=== PATIENT | female | born 1995 | race Caucasian/White ===

== ENCOUNTER 2016-08-17 16:18 | Outpatient (CLI) | payer BC, MEDICAID | END 2016-08-17 18:25 | disposition home or self-care (01) | LOC: MW.OBCHECK 16:18 → MW.OB 16:20 → MW.OBCHECK 18:25 | PROVIDERS: ATTEND Obstetrics & Gynecology | DX: O47.02 False labor before 37 completed weeks of gestation, second trimester (principal); Z3A.28 28 weeks gestation of pregnancy | CPT/HCPCS: 59025; 81001; 84112 ==

== ENCOUNTER 2016-08-25 13:39 | Outpatient (CLI) | payer BC, MEDICAID | END 2016-08-25 15:10 | disposition home or self-care (01) | LOC: MW.OBCHECK 13:39 | PROVIDERS: ATTEND Obstetrics & Gynecology | DX: O47.03 False labor before 37 completed weeks of gestation, third trimester (principal) | CPT/HCPCS: 59025; 84112 ==

== ENCOUNTER 2016-08-25 19:03 | Outpatient (CLI) | payer BC, MEDICAID | END 2016-08-25 21:58 | disposition home or self-care (01) | LOC: MW.OBCHECK 19:03 → MW.OB 19:04 → MW.OBCHECK 21:58 | PROVIDERS: ATTEND Obstetrics & Gynecology | DX: Z34.93 Encounter for supervision of normal pregnancy, unspecified, third trimester (principal) | CPT/HCPCS: 59025 ==

== ENCOUNTER 2016-09-01 16:53 | Inpatient (IN) | payer BC, MEDICAID ==
[2016-09-01] MEDS ORDERED: Terbutaline 1 MG/ML SDV SUBCUT PRN (17:31)
[2016-09-01] MEDS ORDERED: Misoprostol 200 MCG Tab PO PRN (17:35)
[2016-09-01] MEDS ORDERED: Carboprost Tromethamine 250 MCG/1 ML Amp IM PRN (17:35)
[2016-09-01] MEDS ORDERED: Butorphanol 1 MG/ML SDV IVPUSH PRN (17:35)
[2016-09-01] MEDS ORDERED: Nalbuphine 10 MG/1 ML Vial IVPUSH PRN (17:35)
[2016-09-01] MEDS ORDERED: Sodium Chloride 0.9% 10 ML Syringe FLUSH PRN (17:35)
[2016-09-01] MEDS ORDERED: Sodium Chloride 0.9% 2.5 ML Syringe FLUSH PRN (17:35)
[2016-09-01] MEDS ORDERED: Methylergonovine 0.2 MG/1 ML Amp IM PRN (17:35)
[2016-09-01] MEDS ORDERED: Water For Irrigation,Sterile 1,000 ML Container IRR PRN (17:35)
[2016-09-01] MEDS ORDERED: Lidocaine 1% 50 ML MDV INJECT PRN (17:35)
[2016-09-01] MEDS ORDERED: Misoprostol 25 MCG (1/4 of 100 MCG) Tab VAG SCH (18:00)
[2016-09-01] MEDS: Labetalol 100 MG Tab PO SCH (21:04)
[2016-09-02] MEDS ORDERED: Misoprostol 25 MCG (1/4 of 100 MCG) Tab VAG PRN
[2016-09-02] MEDS ORDERED: Oxytocin/Lactated Ringers 30 UNIT/500 ML BAG ONE (02:27)
[2016-09-02] MEDS: Lactated Ringers 1,000 ML IV SCH ×4 (02:32→12:06)
[2016-09-02] MEDS ORDERED: Oxytocin/Lactated Ringers 30 UNIT/500 ML BAG IV SCH ×2 (03:15→06:00)
[2016-09-02] MEDS ORDERED: Oxytocin/Lactated Ringers 30 UNIT/500 ML BAG IV ONE (06:00)
[2016-09-02] MEDS: Labetalol 100 MG Tab PO SCH (09:23)
[2016-09-02] MEDS ORDERED: Ropivacaine HCl/PF 100 ML ONE (11:01)
[2016-09-02] MEDS ORDERED: fentaNYL 100 MCG/2 ML SDV ONE (11:01)
--- NOTE | 2016-09-02 11:35 | PCM.PREANE ---
Preanesthetic Assessment - Anesthesia/Transfusion/Family Hx Anesthesia History: No Prior Anesthesia Family History of Anesthesia Reaction: No Transfusion History: No Prior Transfusion(s) - Review of Systems General: No Symptoms Pulmonary: No Symptoms Cardiovascular: No Symptoms Gastrointestinal: Nausea Neurological: No Symptoms Other: Reports: Anxiety - Physical Assessment NPO Status Date: 09/02/16 NPO Status Time: 11:34 Pulse: 77 Blood Pressure: 118/76 Vital Signs: Last Vital Signs Temp Pulse 77 09/02/16 09:23 Resp BP 118/76 09/02/16 09:23 Pulse Ox Height: 5 ft Weight: 173 lb ASA Class: 2 Mental Status: Alert & Oriented x3 Airway Class: Mallampati = 2 ROM/Head Extension: Full Lungs: Clear to auscultation, Normal respiratory effort Cardiovascular: Regular Rate, Regular Rhythm - Lab Values: Laboratory Last Values WBC 7.58 K/uL (4.0-11.0) 09/01/16 17:55 RBC 3.75 M/uL (4.30-5.90) L 09/01/16 17:55 Hgb 10.8 g/dL (12.0-16.0) L 09/01/16 17:55 Hct 31.8 % (36.0-46.0) L 09/01/16 17:55 MCV 84.8 fL (80.0-98.0) 09/01/16 17:55 MCH 28.8 pg (27.0-32.0) 09/01/16 17:55 MCHC 34.0 g/dL (31.0-37.0) 09/01/16 17:55 RDW Std Deviation 39.8 fl (28.0-62.0) 09/01/16 17:55 RDW Coeff of Sd 13 % (11.0-15.0) 09/01/16 17:55 Plt Count 195 K/uL (150-400) 09/01/16 17:55 MPV 9.70 fL (7.40-12.00) 09/01/16 17:55 Nucleated RBC % 0.0 /100WBC 09/01/16 17:55 Nucleated RBCs # 0 K/uL 09/01/16 17:55 Blood Type O POSITIVE 09/01/16 17:55 Antibody Screen NEGATIVE 09/01/16 17:55 - Allergies Allergies/Adverse Reactions: Allergies Allergy/AdvReac Type Severity Reaction Status Date / Time ketorolac [From Toradol] Allergy Rash Verified 08/25/16 20:21 - Blood Blood Available: No Product(s) Available: None - Anesthesia Plan Free Text/Narrative:: Labor Epidural for 10/10 pain with contractions Pre-Op Medication Ordered: None - Acknowledgements Anesthesia Type Planned: Epidural Pt an Appropriate Candidate for the Planned Anesthesia: Yes Alternatives and Risks of Anesthesia Discussed w Pt/Guardian: Yes Pt/Guardian Understands and Agrees with Anesthesia Plan: Yes PreAnesthesia Questionnaire Cardiovascular History: Reports: Hypertension 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: Psychiatric History: Reports: Anxiety, Depression, Emotional problems - SUBSTANCE USE Tobacco Use Within Last Twelve Months: No - HOME MEDS Home Medications: Home Meds Labetalol HCl [Labetalol] 100 mg PO BID 08/25/16 [History] Vit W-Ca,Fe,FA(<1 mg) [ Vitamins] 1 tab PO DAILY 08/25/16 [ History] - CURRENT (IN HOUSE) MEDS Current Meds: Current Medications Butorphanol Tartrate (Stadol) 1 mg IVPUSH Q1H PRN PRN Reason: Pain Carboprost Tromethamine (Hemabate Ds) 250 mcg IM ASDIRECTED PRN PRN Reason: Post Hemorrhage Lactated Ringer's (Ringers, Lactated) 1,000 mls @ 150 mls/hr IV ASDIRECTED DANNI Last Admin: 09/02/16 09:24 Dose: 150 mls/hr Oxytocin/Lactated Ringer's (Pitocin In Lr 30 Units/500 Ml) 30 unit in 500 mls @ 2 mls/hr IV TITRATE DANNI; 2 MUNITS/MIN PRN Reason: Protocol Last Titration: 09/02/16 09:36 Dose: 18 munits/min, 18 mls/hr Labetalol HCl (Normodyne) 100 mg PO BID DANNI Last Admin: 09/02/16 09:23 Dose: 100 mg Lidocaine HCl (Xylocaine 1%) 50 ml INJECT .ONCE PRN PRN Reason: Laceration repair Methylergonovine Maleate (Methergine) 0.2 mg IM ASDIRECTED PRN PRN Reason: Post Hemorrhage Misoprostol (Cytotec) 25 mcg VAG .ONCE DANNI Last Admin: 09/01/16 18:11 Dose: 25 mcg Misoprostol (Cytotec) 25 mcg VAG Q6H PRN PRN Reason: Cervical Ripening Stop: 09/03/16 18:01 Misoprostol (Cytotec) 200 mcg PO .ONCE PRN PRN Reason: Post Hemorrhage Sodium Chloride (Saline Flush) 10 ml FLUSH ASDIRECTED PRN PRN Reason: Keep Vein Open Sodium Chloride (Saline Flush) 2.5 ml FLUSH ASDIRECTED PRN PRN Reason: Keep Vein Open Sterile Water (Sterile Water For Irrigation) 1,000 ml IRR ASDIRECTED PRN PRN Reason: delivery Terbutaline Sulfate (Brethine) 0.25 mg SUBCUT ASDIRECTED PRN PRN Reason: Tacysystole Discontinued Medications Fentanyl (Sublimaze) Confirm Administered Dose 100 mcg .ROUTE .STK-MED ONE Stop: 09/02/16 11:02 Oxytocin/Lactated Ringer's (Pitocin In Lr 30 Units/500 Ml) 30 unit in 500 mls @ 2 mls/hr IV TITRATE DANNI; 2 MUNITS/MIN PRN Reason: Protocol Oxytocin/Lactated Ringer's (Pitocin In Lr 30 Units/500 Ml) 30 unit in 500 mls @ 999 mls/hr IV ONETIME ONE PRN Reason: 999 MUNITS/MIN Stop: 09/02/16 06:30 Oxytocin/Lactated Ringer's (Pitocin In Lr 30 Units/500 Ml) Confirm Administered Dose 30 unit in 500 mls @ as directed .ROUTE .STK-MED ONE Stop: 09/02/16 02:28 Ropivacaine (Naropin 0.2%) Confirm Administered Dose 100 mls @ as directed .ROUTE .STK-MED ONE Stop: 09/02/16 11:02 Nalbuphine HCl (Nubain) 10 mg IVPUSH Q1H PRN PRN Reason: Pain (severe 7-10) Stop: 09/01/16 19:36 Preanesthetic Assessment - PHYSICAL ASSESSMENT HR: 77 BP: 118/76 Vital Signs: Last Vital Signs Temp Pulse 77 09/02/16 09:23 Resp BP 118/76 09/02/16 09:23 Pulse Ox Height: 5 ft Weight: 173 lb - LAB Values: Laboratory Last Values WBC 7.58 K/uL (4.0-11.0) 09/01/16 17:55 RBC 3.75 M/uL (4.30-5.90) L 09/01/16 17:55 Hgb 10.8 g/dL (12.0-16.0) L 09/01/16 17:55 Hct 31.8 % (36.0-46.0) L 09/01/16 17:55 MCV 84.8 fL (80.0-98.0) 09/01/16 17:55 MCH 28.8 pg (27.0-32.0) 09/01/16 17:55 MCHC 34.0 g/dL (31.0-37.0) 09/01/16 17:55 RDW Std Deviation 39.8 fl (28.0-62.0) 09/01/16 17:55 RDW Coeff of Sd 13 % (11.0-15.0) 09/01/16 17:55 Plt Count 195 K/uL (150-400) 09/01/16 17:55 MPV 9.70 fL (7.40-12.00) 09/01/16 17:55 Nucleated RBC % 0.0 /100WBC 09/01/16 17:55 Nucleated RBCs # 0 K/uL 09/01/16 17:55 Blood Type O POSITIVE 09/01/16 17:55 Antibody Screen NEGATIVE 09/01/16 17:55 - ALLERGIES Allergies/Adverse Reactions: Allergies Allergy/AdvReac Type Severity Reaction Status Date / Time ketorolac [From Toradol] Allergy Rash Verified 08/25/16 20:21
[2016-09-02] MEDS ORDERED: Benzocaine/Menthol 20%-0.5% Spray 78 GM Cannister TOP PRN (13:47)
[2016-09-02] MEDS ORDERED: Acetaminophen 500 MG Tab PO PRN (13:47)
[2016-09-02] MEDS ORDERED: Bisacodyl 10 MG Supp RECTAL PRN (13:47)
[2016-09-02] MEDS ORDERED: Docusate Sodium 100 MG Cap PO PRN (13:47)
[2016-09-02] MEDS ORDERED: Lanolin 100% Cream 7 GM Tube TOP PRN (13:47)
[2016-09-02] MEDS ORDERED: Ibuprofen 800 MG Tab PO PRN (13:47)
[2016-09-02] MEDS ORDERED: oxyCODONE 5 MG Tab PO PRN (13:47)
[2016-09-02] MEDS ORDERED: Witch Hazel Medicated Pads 40/Jar TOP PRN (13:47)
--- NOTE | 2016-09-02 14:31 | OR ---
SURGEON: Jennifer Mendez M.D. DATE OF PROCEDURE: 09/02/2016 PREOPERATIVE DIAGNOSES: A 38 and 4/7th week intrauterine , chronic hypertension. POSTOPERATIVE DIAGNOSES: A 38 and 4/7th week intrauterine , chronic hypertension. PROCEDURE: Cytotec and Pitocin induction of labor, term spontaneous vaginal delivery, repair of first-degree laceration. ANESTHESIA: Epidural. FINDINGS: Liveborn male, score 9 and 9, weighing 2930 g. Placenta spontaneous, Schultze intact, with 3 vessels. BRIEF HISTORY: This is a 21-year-old female, G1, P0. She presents at 38 and 4/7th weeks' gestation for induction of labor. She was initially 1-2 cm, 50%, minus 2 station. She received Cytotec for ripening. She received 2 doses of Cytotec. Pitocin was then started. She had spontaneous rupture of membranes during her epidural. She had category 1 heart tones until about 45 minutes of labor at which time she progressed rapidly from 5 cm to complete. DESCRIPTION OF PROCEDURE: With the patient in dorsal lithotomy position, the patient pushed over 20-minute time period to a 5+ station, at which time the head was delivered spontaneously and atraumatically over the perineum with support with subsequent delivery of the 's shoulders and body without any difficulty. The infant was bulb suctioned by nose and mouth and after the cord had ceased to pulsate, it was doubly clamped and cut. The was handed to the mother in the presence of the nurse attending delivery. The infant was a liveborn male, score 9 and 9, weighing 2930 g. Cord blood was collected for cord ABGs as well as routine cord blood sampling. Pitocin was initiated after delivery of the infant to assist with delivery. The placenta which was delivered spontaneously, Schultze intact with 3 vessels. Upon inspection of the pelvis and perineum, there were no periurethral, vaginal sidewall, cervical, or rectal lacerations. There was a first-degree perineal laceration that was repaired using a running locked suture of 3-0 Caprosyn for the vaginal tissue and a subcuticular suture for the skin, also 3-0 Caprosyn. Final sponge, needle, and instrument counts were correct. There were no known complications. [place] and mother remained in LDRP in good condition. ROWDY / RODNEY /[id number]
--- NOTE | 2016-09-02 17:41 | PCM48HPAN ---
Post Anesthesia Note - EVALUATION WITHIN 48HRS OF ANESTHETIC Vital Signs in Normal Range: Yes Patient Participated in Evaluation: Yes Respiratory Function Stable: Yes Airway Patent: Yes Cardiovascular Function Stable: Yes Hydration Status Stable: Yes Pain Control Satisfactory: Yes Nausea and Vomiting Control Satisfactory: Yes Mental Status Recovered: Yes - COMMENTS/OBSERVATIONS Free Text/Narrative:: No apparent anesthesia complications
[2016-09-03 05:08] VITALS: BP 106/61
--- NOTE | 2016-09-03 08:50 | PCM.PNPP ---
- General Info Date of Service: 09/03/16 Functional Status: Reports: pain controlled, tolerating diet, ambulating, urinating - Review of Systems General: Reports: No Symptoms HEENT: Reports: no symptoms Pulmonary: Reports: no symptoms Cardiovascular: Reports: No Symptoms Gastrointestinal: Reports: No symptoms Genitourinary: Reports: no symptoms Musculoskeletal: Reports: no symptoms Skin: Reports: no symptoms Neurological: Reports: No Symptoms Psychiatric: Reports: no symptoms - Patient Data Vital Signs - most recent: Last Vital Signs Temp 36.8 C 09/03/16 04:00 Pulse 65 09/03/16 04:00 Resp 13 09/03/16 04:00 BP 106/61 09/03/16 04:00 Pulse Ox 96 09/03/16 04:00 Weight - most recent: 78.471 kg Lab Results - last 24 hrs: Laboratory Results - last 24 hr 09/03/16 Range/Units 04:37 Hgb 10.0 L (12.0-16.0) g/dL Hct 29.7 L (36.0-46.0) % Med Orders - Current: Current Medications Acetaminophen (Tylenol Extra Strength) 1,000 mg PO Q4H PRN PRN Reason: Pain Last Admin: 09/02/16 20:01 Dose: 1,000 mg Benzocaine/Menthol (Dermoplast Pain Relief 20%-0.5% Jet) 78 gm TOP ASDIRECTED PRN PRN Reason: Perineal Comfort Measure Last Admin: 09/02/16 16:45 Dose: 1 can Bisacodyl (Dulcolax) 10 mg RECTAL .ONCE PRN PRN Reason: Constipation Docusate Sodium (Colace) 100 mg PO BID PRN PRN Reason: Constipation Emollient Ointment (Lansinoh Hpa) 0 gm TOP ASDIRECTED PRN PRN Reason: Sore Nipples Ibuprofen (Motrin) 800 mg PO Q6H PRN PRN Reason: Pain Last Admin: 09/02/16 16:46 Dose: 800 mg Oxycodone HCl (Oxycodone) 5 mg PO Q2H PRN PRN Reason: Pain Witch Niki (Tucks) 1 pad TOP ASDIRECTED PRN PRN Reason: comfort care Last Admin: 09/02/16 16:46 Dose: 1 tub Discontinued Medications Butorphanol Tartrate (Stadol) 1 mg IVPUSH Q1H PRN PRN Reason: Pain Carboprost Tromethamine (Hemabate Ds) 250 mcg IM ASDIRECTED PRN PRN Reason: Post Hemorrhage Fentanyl (Sublimaze) Confirm Administered Dose 100 mcg .ROUTE .STK-MED ONE Stop: 09/02/16 11:02 Lactated Ringer's (Ringers, Lactated) 1,000 mls @ 150 mls/hr IV ASDIRECTED DANNI Last Admin: 09/02/16 12:06 Dose: 150 mls/hr Oxytocin/Lactated Ringer's (Pitocin In Lr 30 Units/500 Ml) 30 unit in 500 mls @ 2 mls/hr IV TITRATE DANNI; 2 MUNITS/MIN PRN Reason: Protocol Oxytocin/Lactated Ringer's (Pitocin In Lr 30 Units/500 Ml) 30 unit in 500 mls @ 999 mls/hr IV ONETIME ONE PRN Reason: 999 MUNITS/MIN Stop: 09/02/16 06:30 Oxytocin/Lactated Ringer's (Pitocin In Lr 30 Units/500 Ml) Confirm Administered Dose 30 unit in 500 mls @ as directed .ROUTE .STK-MED ONE Stop: 09/02/16 02:28 Oxytocin/Lactated Ringer's (Pitocin In Lr 30 Units/500 Ml) 30 unit in 500 mls @ 2 mls/hr IV TITRATE DANNI; 2 MUNITS/MIN PRN Reason: Protocol Last Titration: 09/02/16 12:37 Dose: 8 munits/min, 8 mls/hr Ropivacaine (Naropin 0.2%) Confirm Administered Dose 100 mls @ as directed .ROUTE .STK-MED ONE Stop: 09/02/16 11:02 Labetalol HCl (Normodyne) 100 mg PO BID DANNI Last Admin: 09/02/16 09:23 Dose: 100 mg Lidocaine HCl (Xylocaine 1%) 50 ml INJECT .ONCE PRN PRN Reason: Laceration repair Methylergonovine Maleate (Methergine) 0.2 mg IM ASDIRECTED PRN PRN Reason: Post Hemorrhage Misoprostol (Cytotec) 25 mcg VAG .ONCE DANNI Last Admin: 09/01/16 18:11 Dose: 25 mcg Misoprostol (Cytotec) 25 mcg VAG Q6H PRN PRN Reason: Cervical Ripening Stop: 09/03/16 18:01 Misoprostol (Cytotec) 200 mcg PO .ONCE PRN PRN Reason: Post Hemorrhage Nalbuphine HCl (Nubain) 10 mg IVPUSH Q1H PRN PRN Reason: Pain (severe 7-10) Stop: 09/01/16 19:36 Sodium Chloride (Saline Flush) 10 ml FLUSH ASDIRECTED PRN PRN Reason: Keep Vein Open Sodium Chloride (Saline Flush) 2.5 ml FLUSH ASDIRECTED PRN PRN Reason: Keep Vein Open Sterile Water (Sterile Water For Irrigation) 1,000 ml IRR ASDIRECTED PRN PRN Reason: delivery Terbutaline Sulfate (Brethine) 0.25 mg SUBCUT ASDIRECTED PRN PRN Reason: Tacysystole - Interaction Disposition, : in Room with Family Infant Interaction: Holding Infant Feeding: Breastfed Infant; Nursed Well Support Person: Mother - Recovery Exam Fundal Tone: Firm Fundal Level: 1 Fingerbreadths Below Umbilicus Fundal Placement: Midline Lochia Amount: Scant Lochia Color: Rubra/Red Perineum Description: Edematous Other Perinuem Description: bruise x3cm to perineum Episiotomy/Laceration: Approximated Bladder Status: Voiding - Exam General: alert, oriented HEENT: Pupils equal Neck: supple Cardiovascular: Regular Rhythm Abdomen: soft, no tenderness, no distension Extremities: no edema Skin: warm, dry, intact Neurological: no new focal deficit Psy/Mental Status: alert, normal affect, normal mood - Problem List & Annotations (1) Chronic hypertension complicating or reason for care during childbirth SNOMED Code(s): 5108720 Code(s): O10.92 - UNSP PRE-EXISTING HYPERTENSION COMPLICATING CHILDBIRTH Status: Acute Current Visit: Yes (2) Vaginal delivery SNOMED Code(s): 155984999 Code(s): O80 - ENCOUNTER FOR FULL-TERM UNCOMPLICATED DELIVERY Status: Acute Current Visit: Yes - Problem List Review Problem List Initiated/Reviewed/Updated: Yes - My Orders Last 24 Hours: My Active Orders 09/02/16 13:47 Patient Status [ADT] Routine May Shower [RC] ASDIRECTED Up ad Fiorella [RC] ASDIRECTED Vital Signs [RC] PER UNIT ROUTINE Acetaminophen [Tylenol Extra Strength] 1,000 mg PO Q4H PRN Benzocaine/Menthol [Dermoplast Pain Relief 20%-0.5% Jet] 78 gm TOP ASDIRECTED PRN Bisacodyl [Dulcolax] 10 mg RECTAL .ONCE PRN Docusate Sodium [Colace] 100 mg PO BID PRN Ibuprofen [Motrin] 800 mg PO Q6H PRN Lanolin [Lansinoh HPA] See Dose Instructions TOP ASDIRECTED PRN Witch Niki [Tucks] 1 pad TOP ASDIRECTED PRN oxyCODONE 5 mg PO Q2H PRN Assess Lochia [WOMSER] Per Unit Routine Assess Uterine Involution [WOMSER] Per Unit Routine Peripheral IV Discontinue [OM.PC] Routine Resuscitation Status Routine 09/02/16 13:48 Perineal Care [OM.PC] Per Unit Routine 09/02/16 Dinner Regular Diet [DIET] 09/03/16 08:40 Ready for Discharge [RC] PER UNIT ROUTINE - Assessment Assessment:: PPD#1 after stable, minimal lochia, well. BP is improved since delivery - Plan Plan:: Stable. Discharge instructions reviewed. Dismiss to home today, return to clinic in 1 week for BP check.
== END 2016-09-03 18:35 | disposition home or self-care (01) | DRG 560 ==
LOC: MW.OBCHECK 16:53 → MW.OB 16:53 → MW.OBCHECK 17:35 → MW.OB 17:35 → OBSVTOIN 09-02 13:22 → MW.OB 09-02 20:43
PROVIDERS: ADMIT Obstetrics & Gynecology; ATTEND Obstetrics & Gynecology
PROC: 10E0XZZ Delivery of Products of Conception, External Approach (ICD-10-PCS; principal; 2016-09-02)
PROC: 0HQ9XZZ Repair Perineum Skin, External Approach (ICD-10-PCS; 2016-09-02)
PROC: 3E0P7GC Introduction of Other Therapeutic Substance into Female Reproductive, Via Natural or Artificial Opening (ICD-10-PCS; 2016-09-02)
PROC: 3E033VJ Introduction of Other Hormone into Peripheral Vein, Percutaneous Approach (ICD-10-PCS; 2016-09-02)
DX: O10.92 Unspecified pre-existing hypertension complicating childbirth (principal); O70.0 First degree perineal laceration during delivery; Z3A.38 38 weeks gestation of pregnancy; Z37.0 Single live birth
CPT/HCPCS: 01967; 36415; 59025; 85014; 85018; 85027; 86850; 86900; 86901; A9270-GY; J2795; J3010; J7120

== ENCOUNTER 2016-10-15 15:12 | Emergency (ER) | payer BC, MEDICAID ==
--- NOTE | 2016-10-15 15:36 | EDM.PDOC ---
ED HPI GENERAL MEDICAL PROBLEM - General Chief Complaint: Skin Complaint Stated Complaint: LUMP ON HER HEAD Time Seen by Provider: 10/15/16 15:30 Source of Information: Reports: Patient History Limitations: Reports: No Limitations - History of Present Illness INITIAL COMMENTS - FREE TEXT/NARRATIVE: HISTORY AND PHYSICAL: History of present illness: [Comes to the emergency room for evaluation of a lump to the back of her head. She noticed it earlier today but has had pain to that area for the past couple of days. Has had no drainage from the area. She's had no fever or chills. She describes a headache on the right side of her face which feels typical for her. She has a history of migraines but this is not near as severe. No blurred vision or double vision. She's not taken any medications for her symptoms. She has no other complaints or concerns today. Does not have a local PCP.] Review of systems: As per history of present illness and below otherwise all systems reviewed and negative. Past medical history: As per history of present illness and as reviewed below otherwise noncontributory. Surgical history: As per history of present illness and as reviewed below otherwise noncontributory. Social history: No reported history of drug or alcohol abuse. Family history: As per history of present illness and as reviewed below otherwise noncontributory. Physical exam: HEENT: 1 cm sebaceous type cyst to right mid occipital scalp. It is not erythematous. No drainage. Mildly tender with palpation. No other lesions noted. mucous membranes moist. Extremities: Atraumatic, ambulates without difficulty or assistance. Neurovascular unremarkable. Neuro: Awake, alert, oriented. Motor and sensory unremarkable throughout. Exam nonfocal. Impression: [Sebaceous cyst] Plan: [Tylenol or ibuprofen as needed for discomfort. Establish care with a local PCP and followup there for excision if the lesion becomes painful or larger. She is in agreement with today's plan.] Definitive disposition and diagnosis as appropriate pending reevaluation and review of above. Headache Pain Score (Numeric/FACES): 6 - Related Data Allergies Allergy/AdvReac Type Severity Reaction Status Date / Time ketorolac [From Toradol] Allergy Rash Verified 10/15/16 15:24 Home Meds: Home Meds . 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 ED EXAM, SKIN/RASH Exam: See Below Course - Vital Signs Last Recorded V/S: Last Vital Signs Temp 98.2 F 10/15/16 15:56 Pulse 72 10/15/16 15:56 Resp 18 10/15/16 15:56 BP 127/70 10/15/16 15:56 Pulse Ox 95 10/15/16 15:25 Departure - Departure Time of Disposition: 15:45 Disposition: Home, Self-Care 01 Condition: good Clinical Impression: Sebaceous cyst - Discharge Information Instructions: Sebaceous Cyst Removal, Care After Referrals: Jennifer Mendez MD [Primary Care Provider] - Forms: ED Department Discharge Additional Instructions: The following information is given to patients seen in the emergency department who are being discharged to home. This information is to outline your options for follow-up care. We provide all patients seen in our emergency department with a follow-up referral. The need for follow-up, as well as the timing and circumstances, are variable depending upon the specifics of your emergency department visit. If you don't have a primary care physician on staff, we will provide you with a referral. We always advise you to contact your personal physician following an emergency department visit to inform them of the circumstance of the visit and for follow-up with them and/or the need for any referrals to a consulting specialist. The emergency department will also refer you to a specialist when appropriate. This referral assures that you have the opportunity for follow-up care with a specialist. All of these measure are taken in an effort to provide you with optimal care, which includes your follow-up. Under all circumstances we always encourage you to contact your private physician who remains a resource for coordinating your care. When calling for follow-up care, please make the office aware that this follow-up is from your recent emergency room visit. If for any reason you are refused follow-up, please contact the [facility] emergency department at and asked to speak to the emergency department charge nurse. [facility] [address] [place] [id number] Establish care with a local primary care provider at the clinic listed above. Follow up there in 48-72 hours, as needed and as discussed. Tylenol and ibuprofen as needed for headache. Return to ER as needed as discussed.
[2016-10-15 15:59] VITALS: BP 127/70
== END 2016-10-15 15:56 | disposition home or self-care (01) ==
LOC: MW.ED 15:12
DX: L72.3 Sebaceous cyst (principal); I10 Essential (primary) hypertension; F41.8 Other specified anxiety disorders; Z88.6 Allergy status to analgesic agent
CPT/HCPCS: 99282

== ENCOUNTER 2017-06-05 20:44 | Emergency (ER) | payer BC ==
[2017-06-05] MEDS ORDERED: Sodium Chloride 0.9% 1,000 ML IV ONE (21:07)
[2017-06-05] MEDS ORDERED: Ondansetron 4 MG/2 ML SDV IVPUSH ONE (21:07)
--- NOTE | 2017-06-05 21:12 | EDM.PDOC ---
ED HPI GENERAL MEDICAL PROBLEM - General Chief Complaint: Abdominal Pain Stated Complaint: STOMACH PAIN AND FEVER Time Seen by Provider: 06/05/17 21:11 Source of Information: Reports: Patient - History of Present Illness INITIAL COMMENTS - FREE TEXT/NARRATIVE: HISTORY AND PHYSICAL: History of present illness: [Resents with intermittent subjective fever and nausea with some [employer] not particularly greasy food but any food some nausea no vomiting no chills or sweats at current, she is curious about her LMP is Alert interactive bright-eyed well-nourished with good hygiene changes in no acute distress whatsoever nontoxic appearing Her nausea vomiting diarrhea constipation chest pain shortness breath headache dizziness palpitation about a urine symptoms ] Review of systems: As per history of present illness and below otherwise all systems reviewed and negative. Past medical history: As per history of present illness and as reviewed below otherwise noncontributory. Surgical history: As per history of present illness and as reviewed below otherwise noncontributory. Social history: No reported history of drug or alcohol abuse. Family history: As per history of present illness and as reviewed below otherwise noncontributory. Physical exam: HEENT: Atraumatic, normocephalic, pupils reactive, negative for conjunctival pallor or scleral icterus, mucous membranes moist, throat clear, neck supple, nontender, trachea midline. Lungs: Clear to auscultation, breath sounds equal bilaterally, chest nontender. Heart: S1S2, regular, negative for clicks, rubs, or JVD. Abdomen: Soft, nondistended, nontender. Negative for masses or hepatosplenomegaly. Negative for costovertebral tenderness. Pelvis: Stable nontender. Genitourinary: Deferred. Rectal: Deferred. Extremities: Atraumatic, negative for cords or calf pain. Neurovascular unremarkable. Neuro: Awake, alert, oriented. Cranial nerves II through XII unremarkable. Cerebellum unremarkable. Motor and sensory unremarkable throughout. Exam nonfocal. Diagnostics: cbc, cmp, ua nuris, lip ,hCG ]influenza Therapeutics: [Saline bolus Zofran 8 mg IV patient refused Zofran 8 mg ODT every 8 when necessary #30 no refill ] Impression: [abdominal pain intermittently- nausea associated with food ] Definitive disposition and diagnosis as appropriate pending reevaluation and review of above. hypogastric Pain Score (Numeric/FACES): 5 - Related Data Allergies Allergy/AdvReac Type Severity Reaction Status Date / Time ketorolac [From Toradol] Allergy Rash Verified 06/05/17 21:03 Home Meds: Home Meds . 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: Psychiatric History: Reports: Anxiety, Depression, Emotional Problems - Past Surgical History Cardiovascular Surgical History: Reports: None Social & Family History - Family History Family Medical History: Noncontributory Cardiac: Reports: Aneurysm, Hypertension GI: Reports: Cholelithiasis Endocrine/Metabolic: Reports: Diabetes, type II - Tobacco Use Smoking Status *Q: Current Some Day Smoker Years of Tobacco use: 2 Packs/Tins Daily: 0.1 - Caffeine Use Caffeine Use: Reports: Soda Caffeine Use Comment: 1 cup - Recreational Drug Use Recreational Drug Use: No ED ROS GENERAL - Review of Systems Review Of Systems: ROS reveals no pertinent complaints other than HPI. ED EXAM, GENERAL - Physical Exam Exam: See Below Course - Vital Signs Last Recorded V/S: Last Vital Signs Temp 98.6 F 06/05/17 20:44 Pulse 82 06/05/17 20:44 Resp 18 06/05/17 20:44 BP 125/84 06/05/17 20:44 Pulse Ox 97 06/05/17 20:44 - Orders/Labs/Meds Orders: Active Orders 24 hr Category Date Time Status Sodium Chloride 0.9% [Normal Saline] 1,000 ml Med 06/05/17 21:07 Active IV STAT Medication Orders Sodium Chloride (Normal Saline) 1,000 mls @ 999 mls/hr IV STAT ONE Stop: 06/05/17 22:07 Last Admin: 06/05/17 21:20 Dose: 999 mls/hr Labs: Laboratory Tests 06/05/17 06/05/17 06/05/17 Range/Units 12:05 12:05 21:20 WBC 7.66 (4.0-11.0) K/uL RBC 4.80 (4.30-5.90) M/uL Hgb 13.8 (12.0-16.0) g/dL Hct 39.4 (36.0-46.0) % MCV 82.1 (80.0-98.0) fL MCH 28.8 (27.0-32.0) pg MCHC 35.0 (31.0-37.0) g/dL RDW Std Deviation 40.0 (28.0-62.0) fl RDW Coeff of Sd 13 (11.0-15.0) % Plt Count 245 (150-400) K/uL MPV 9.70 (7.40-12.00) fL Neut % (Auto) 53.6 (48.0-80.0) % Lymph % (Auto) 35.4 (16.0-40.0) % [place] % (Auto) 9.8 (0.0-15.0) % Eos % (Auto) 0.9 (0.0-7.0) % Baso % (Auto) 0.3 (0.0-1.5) % Neut # (Auto) 4.1 (1.4-5.7) K/uL Lymph # (Auto) 2.7 H (0.6-2.4) K/uL [place] # (Auto) 0.8 (0.0-0.8) K/uL Eos # (Auto) 0.1 (0.0-0.7) K/uL Baso # (Auto) 0.0 (0.0-0.1) K/uL Nucleated RBC % 0.0 /100WBC Nucleated RBCs # 0 K/uL Sodium (136-146) mmol/L Potassium (3.5-5.1) mmol/L Chloride (98-110) mmol/L Carbon Dioxide (21-31) mmol/L BUN (6.0-23.0) mg/dL Creatinine (0.6-1.5) mg/dL Est Cr Clr Drug Dosing mL/min Estimated GFR (MDRD) ml/min Glucose (60-110) mg/dL Calcium (8.8-10.8) mg/dL Total Bilirubin (0.1-1.5) mg/dL AST (5-40) IU/L ALT (8-54) IU/L Alkaline Phosphatase (40-150) C-Reactive Protein (0.0-0.5) mg/dL Total Protein (6.0-8.0) g/dL Albumin (3.5-5.0) g/dL Globulin (2.0-3.5) g/dL Albumin/Globulin Ratio (1.3-2.8) Amylase (10-90) U/L Lipase (7-80) U/L Urine Color YELLOW Urine Appearance CLOUDY Urine pH 7.0 (5.0-8.0) Ur Specific [place] 1.020 (1.001-1.035) Urine Protein NEGATIVE (NEGATIVE) mg/dL Urine Glucose (UA) NEGATIVE (NEGATIVE) mg/dL Urine Ketones NEGATIVE (NEGATIVE) mg/dL Urine Occult Blood NEGATIVE (NEGATIVE) Urine Nitrite NEGATIVE (NEGATIVE) Urine Bilirubin NEGATIVE (NEGATIVE) Urine Urobilinogen 0.2 (<2.0) EU/dL Ur Leukocyte Esterase TRACE (NEGATIVE) Urine RBC 0-2 (0-2/HPF) Urine WBC 0-4 (0-5/HPF) Ur Epithelial Cells FEW (NONE-FEW) Amorphous Sediment MANY (NEGATIVE) Urine Bacteria FEW (NEGATIVE) Urine HCG, Qual NEGATIVE (NEGATIVE) 06/05/17 Range/Units 21:20 WBC (4.0-11.0) K/uL RBC (4.30-5.90) M/uL Hgb (12.0-16.0) g/dL Hct (36.0-46.0) % MCV (80.0-98.0) fL MCH (27.0-32.0) pg MCHC (31.0-37.0) g/dL RDW Std Deviation (28.0-62.0) fl RDW Coeff of Sd (11.0-15.0) % Plt Count (150-400) K/uL MPV (7.40-12.00) fL Neut % (Auto) (48.0-80.0) % Lymph % (Auto) (16.0-40.0) % [place] % (Auto) (0.0-15.0) % Eos % (Auto) (0.0-7.0) % Baso % (Auto) (0.0-1.5) % Neut # (Auto) (1.4-5.7) K/uL Lymph # (Auto) (0.6-2.4) K/uL [place] # (Auto) (0.0-0.8) K/uL Eos # (Auto) (0.0-0.7) K/uL Baso # (Auto) (0.0-0.1) K/uL Nucleated RBC % /100WBC Nucleated RBCs # K/uL Sodium 140 (136-146) mmol/L Potassium 4.0 (3.5-5.1) mmol/L Chloride 108 (98-110) mmol/L Carbon Dioxide 21 (21-31) mmol/L BUN 19 (6.0-23.0) mg/dL Creatinine 0.8 (0.6-1.5) mg/dL Est Cr Clr Drug Dosing 83.94 mL/min Estimated GFR (MDRD) > 60.0 ml/min Glucose 84 (60-110) mg/dL Calcium 9.6 (8.8-10.8) mg/dL Total Bilirubin 0.6 (0.1-1.5) mg/dL AST 17 (5-40) IU/L ALT 16 (8-54) IU/L Alkaline Phosphatase 53 (40-150) C-Reactive Protein 0.04 (0.0-0.5) mg/dL Total Protein 7.4 (6.0-8.0) g/dL Albumin 4.7 (3.5-5.0) g/dL Globulin 2.7 (2.0-3.5) g/dL Albumin/Globulin Ratio 1.7 (1.3-2.8) Amylase 52 (10-90) U/L Lipase 33 (7-80) U/L Urine Color Urine Appearance Urine pH (5.0-8.0) Ur Specific [place] (1.001-1.035) Urine Protein (NEGATIVE) mg/dL Urine Glucose (UA) (NEGATIVE) mg/dL Urine Ketones (NEGATIVE) mg/dL Urine Occult Blood (NEGATIVE) Urine Nitrite (NEGATIVE) Urine Bilirubin (NEGATIVE) Urine Urobilinogen (<2.0) EU/dL Ur Leukocyte Esterase (NEGATIVE) Urine RBC (0-2/HPF) Urine WBC (0-5/HPF) Ur Epithelial Cells (NONE-FEW) Amorphous Sediment (NEGATIVE) Urine Bacteria (NEGATIVE) Urine HCG, Qual (NEGATIVE) Meds: Medications Generic Name Dose Route Start Last Admin Trade Name Freq PRN Reason Stop Dose Admin Sodium Chloride 1,000 mls @ 999 mls/hr 06/05/17 21:07 06/05/17 21:20 Normal Saline IV 06/05/17 22:07 999 mls/hr STAT ONE Administration Discontinued Medications Generic Name Dose Route Start Last Admin Trade Name Carlito PRN Reason Stop Dose Admin Ondansetron HCl 8 mg 06/05/17 21:07 Zofrcarlos a IVPUSH 06/05/17 21:08 ONETIME ONE Departure - Departure Time of Disposition: 22:08 Disposition: Home, Self-Care 01 Condition: Good Clinical Impression: Abdominal pain - Discharge Information Referrals: PCP,None [Primary Care Provider] - Forms: ED Department Discharge Additional Instructions: The following information is given to patients seen in the emergency department who are being discharged to home. This information is to outline your options for follow-up care. We provide all patients seen in our emergency department with a follow-up referral. The need for follow-up, as well as the timing and circumstances, are variable depending upon the specifics of your emergency department visit. If you don't have a primary care physician on staff, we will provide you with a referral. We always advise you to contact your personal physician following an emergency department visit to inform them of the circumstance of the visit and for follow-up with them and/or the need for any referrals to a consulting specialist. The emergency department will also refer you to a specialist when appropriate. This referral assures that you have the opportunity for follow-up care with a specialist. All of these measure are taken in an effort to provide you with optimal care, which includes your follow-up. Under all circumstances we always encourage you to contact your private physician who remains a resource for coordinating your care. When calling for follow-up care, please make the office aware that this follow-up is from your recent emergency room visit. If for any reason you are refused follow-up, please contact the [facility] emergency department at and asked to speak to the emergency department charge nurse. - My Orders Last 24 Hours: My Active Orders 06/05/17 21:07 Sodium Chloride 0.9% [Normal Saline] 1,000 ml IV STAT - Assessment/Plan Last 24 Hours: My Active Orders 06/05/17 21:07 Sodium Chloride 0.9% [Normal Saline] 1,000 ml IV STAT
[2017-06-05 21:53] LABS: CHLORIDE,CL 108 mmol/L (98-110); SODIUM,NA 140 mmol/L (136-146)
[2017-06-06 00:11] VITALS: BP 120/82
== END 2017-06-05 22:25 | disposition home or self-care (01) ==
LOC: MW.ED 20:44
DX: R10.9 Unspecified abdominal pain (principal); R11.0 Nausea; I10 Essential (primary) hypertension; F17.210 Nicotine dependence, cigarettes, uncomplicated; Z88.6 Allergy status to analgesic agent
CPT/HCPCS: 80053; 81001; 81025; 82150; 83690; 85025; 86140; 87804; 96360; 99284; J7040; 99283

== ENCOUNTER 2017-08-30 21:27 | Observation (INO) | payer BC ==
[2017-08-30] MEDS ORDERED: Sodium Chloride 0.9% 1,000 ML IV ONE (22:04)
[2017-08-30] MEDS ORDERED: Sodium Chloride 0.9% 10 ML Syringe FLUSH PRN (22:04)
[2017-08-30] MEDS ORDERED: Ondansetron 4 MG/2 ML SDV IVPUSH ONE (22:04)
[2017-08-30] MEDS ORDERED: Sodium Chloride 0.9% 2.5 ML Syringe FLUSH PRN (22:04)
--- NOTE | 2017-08-30 22:09 | EDM.PDOC ---
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 She says that with this she has had a little bit of nausea and vomiting but not to this level. She has some lower abdominal cramping and some brown vaginal discharge but she is not having any copious vaginal bleeding. She has no fevers chills cough runny nose or sore throat she has no ill contacts and she has had no diarrhea. She has no pain with urination. The patient states that her due date is March 15 which makes her 12 weeks . The patient says she has had an ultrasound performed in the office by Dr. Red which documented an IUP patient says she does feel thirsty. The patient says that she had a lot of vomiting with her first and had Zofran but she used it all. Patient says she mentioned to Dr. Red as she was having some nausea and she was supposed to get a prescription but thinks that may have been forgotten as she never received it. Review of systems: As per history of present illness and below otherwise all systems reviewed and negative. Past medical history: As per history of present illness and as reviewed below otherwise noncontributory. Surgical history: As per history of present illness and as reviewed below otherwise noncontributory. Social history: No reported history of drug or alcohol abuse. Family history: As per history of present illness and as reviewed below otherwise noncontributory. Physical exam: General: Well-developed well-nourished female who is nontoxic and vital signs reviewed by me HEENT: Atraumatic, normocephalic, pupils reactive, negative for conjunctival pallor or scleral icterus, mucous membranes moist, throat clear, neck supple, nontender, trachea midline. Lungs: Clear to auscultation, breath sounds equal bilaterally, chest nontender. Heart: S1S2, regular, negative for clicks, rubs, or JVD. Abdomen: Soft, nondistended, nontender no rebound no guarding and bowel sounds are normoactive.. Negative for masses or hepatosplenomegaly. Negative for costovertebral tenderness. Pelvis: Stable nontender. Genitourinary: Deferred. Rectal: Deferred. Extremities: Atraumatic, negative for cords or calf pain. Neurovascular unremarkable. Neuro: Awake, alert, oriented. Cranial nerves II through XII unremarkable. Cerebellum unremarkable. Motor and sensory unremarkable throughout. Exam nonfocal. Diagnostics: CBC CMP serum quantitative hCG UA, urine culture if indicated Therapeutics: IV IV fluids Zofran, Reglan and Benadryl After 1 L of IV fluids and Zofran the patient was given a by mouth challenge which she proceeded to have emesis of approximately 8 minutes afterwards. I will re-dose her with Zofran IV and a second liter of fluid and reevaluate. Please note that prior to the patient's by mouth challenge she had been sleeping in the room comfortably without vomiting or complaints of any discomfort After a second liter of IV fluids and second dose of Zofran the patient again had vomiting of a by mouth challenge. I will discuss this case with Dr. Geller who was on-call for Dr. Red and plan for observation admission 0156: Dr. Geller would like to give a dose of Reglan and reevaluate and if the patient can tolerate by mouth she would like to try to prevent the observation admission. We will relay this information to the patient and give her a dose of Reglan and Benadryl and reevaluate 0350: After patient received the Reglan Benadryl she was given a by mouth challenge and she took 4 ounces of water which she proceeded to vomit up. Dr. Geller was recontacted and agrees to the observation admission. Impression: Hyperemesis gravidarum Definitive disposition and diagnosis as appropriate pending reevaluation and review of above. Abdomen Pain Score (Numeric/FACES): 2 - Related Data Allergies Allergy/AdvReac Type Severity Reaction Status Date / Time ketorolac [From Toradol] Allergy Rash Verified 08/30/17 21:46 Home Meds: Home Meds Pnv No.122/Iron/Folic Acid [ Multi Tablet] 1 each PO DAILY 08/30/17 [ History] Past Medical History - Past Health History Medical/Surgical History: Denies Medical/Surgical History HEENT History: Reports: None Cardiovascular History: Reports: Hypertension Other Cardiovascular History: PVC Respiratory History: Reports: None Gastrointestinal History: Reports: None Genitourinary History: Reports: 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: Musculoskeletal History: Reports: None Neurological History: Reports: None Psychiatric History: Reports: Anxiety, Depression, Emotional Problems Endocrine/Metabolic History: Reports: None Hematologic History: Reports: None Immunologic History: Reports: None Oncologic (Cancer) History: Reports: None Dermatologic History: Reports: None - Infectious Disease History Infectious Disease History: Reports: None - Past Surgical History Head Surgeries/Procedures: Reports: None Cardiovascular Surgical History: Reports: None Female Surgical History: Reports: None Social & Family History - Family History Family Medical History: Noncontributory Cardiac: Reports: Aneurysm, Hypertension GI: Reports: Cholelithiasis Endocrine/Metabolic: Reports: Diabetes, type II - Tobacco Use Smoking Status *Q: Never Smoker Years of Tobacco use: 2 Packs/Tins Daily: 0.1 - Caffeine Use Caffeine Use: Reports: Soda Caffeine Use Comment: 1 cup - Recreational Drug Use Recreational Drug Use: No ED ROS GENERAL - Review of Systems Review Of Systems: ROS reveals no pertinent complaints other than HPI. ED EXAM, GENERAL - Physical Exam Exam: See Below (see Dictation) Course - Vital Signs Last Recorded V/S: Last Vital Signs Temp 36.8 C 08/31/17 02:15 Pulse 102 H 08/31/17 03:35 Resp 13 08/31/17 03:35 BP 100/53 L 08/31/17 03:35 Pulse Ox 97 08/31/17 03:35 - Orders/Labs/Meds Orders: Active Orders 24 hr Category Date Time Status Patient Status [ADT] Stat ADT 08/31/17 03:53 Ordered UA W/MICROSCOPIC [URIN] Stat Lab 08/30/17 23:50 Ordered Dextrose 5%-1/2 Normal Saline @ 150 MLS/HR(1000ml) Med 08/31/17 04:00 Ordered Dextrose 5%-0.45% NaCl [Dextrose 5%-1/2 NS] 1,000 ml IV ASDIRECTED Sodium Chloride 0.9% [Saline Flush] Med 08/30/17 22:04 Active 10 ml FLUSH ASDIRECTED PRN Sodium Chloride 0.9% [Saline Flush] Med 08/30/17 22:04 Active 2.5 ml FLUSH ASDIRECTED PRN Saline Lock Insert [OM.PC] Stat Oth 08/30/17 22:03 Ordered Medication Orders Dextrose/Sodium Chloride (Dextrose 5%-1/2 Ns) 1,000 mls @ 150 mls/hr IV ASDIRECTED DANNI Sodium Chloride (Saline Flush) 10 ml FLUSH ASDIRECTED PRN PRN Reason: Keep Vein Open Last Admin: 08/30/17 22:16 Dose: 10 ml Sodium Chloride (Saline Flush) 2.5 ml FLUSH ASDIRECTED PRN PRN Reason: Keep Vein Open Last Admin: 08/30/17 22:16 Dose: 2.5 ml Labs: Laboratory Tests 08/30/17 08/30/17 08/30/17 Range/Units 21:47 21:47 21:47 WBC 6.80 (4.0-11.0) K/uL RBC 4.40 (4.30-5.90) M/uL Hgb 13.1 (12.0-16.0) g/dL Hct 36.7 (36.0-46.0) % MCV 83.4 (80.0-98.0) fL MCH 29.8 (27.0-32.0) pg MCHC 35.7 (31.0-37.0) g/dL RDW Std Deviation 39.9 (28.0-62.0) fl RDW Coeff of Sd 13 (11.0-15.0) % Plt Count 214 (150-400) K/uL MPV 9.30 (7.40-12.00) fL Neut % (Auto) 78.1 (48.0-80.0) % Lymph % (Auto) 17.9 (16.0-40.0) % [place] % (Auto) 3.5 (0.0-15.0) % Eos % (Auto) 0.4 (0.0-7.0) % Baso % (Auto) 0.1 (0.0-1.5) % Neut # (Auto) 5.3 (1.4-5.7) K/uL Lymph # (Auto) 1.2 (0.6-2.4) K/uL [place] # (Auto) 0.2 (0.0-0.8) K/uL Eos # (Auto) 0.0 (0.0-0.7) K/uL Baso # (Auto) 0.0 (0.0-0.1) K/uL Nucleated RBC % 0.0 /100WBC Nucleated RBCs # 0 K/uL Sodium 137 (136-145) mmol/L Potassium 3.7 (3.5-5.1) mmol/L Chloride 103 (98-107) mmol/L Carbon Dioxide 22.1 (21.0-32.0) mmol/L BUN 9 (7.0-18.0) mg/dL Creatinine 0.6 (0.6-1.0) mg/dL Est Cr Clr Drug Dosing 106.53 mL/min Estimated GFR (MDRD) > 60.0 ml/min Glucose 97 (74-106) mg/dL Calcium 9.2 (8.5-10.1) mg/dL Total Bilirubin 0.6 (0.2-1.0) mg/dL AST 18 (15-37) IU/L ALT 18 (14-63) IU/L Alkaline Phosphatase 43 L (46-116) U/L Total Protein 7.1 (6.4-8.2) g/dL Albumin 3.9 (3.4-5.0) g/dL Globulin 3.2 (2.0-3.5) g/dL Albumin/Globulin Ratio 1.2 L (1.3-2.8) HCG, Quant 00804.0 mIU/mL Urine Color Urine Appearance Urine pH (5.0-8.0) Ur Specific [place] (1.001-1.035) Urine Protein (NEGATIVE) mg/dL Urine Glucose (UA) (NEGATIVE) mg/dL Urine Ketones (NEGATIVE) mg/dL Urine Occult Blood (NEGATIVE) Urine Nitrite (NEGATIVE) Urine Bilirubin (NEGATIVE) Urine Urobilinogen (<2.0) EU/dL Ur Leukocyte Esterase (NEGATIVE) Urine RBC (0-2/HPF) Urine WBC (0-5/HPF) Ur Epithelial Cells (NONE-FEW) Urine Bacteria (NEGATIVE) Urine Mucus (NONE-MOD) 08/30/17 Range/Units 23:50 WBC (4.0-11.0) K/uL RBC (4.30-5.90) M/uL Hgb (12.0-16.0) g/dL Hct (36.0-46.0) % MCV (80.0-98.0) fL MCH (27.0-32.0) pg MCHC (31.0-37.0) g/dL RDW Std Deviation (28.0-62.0) fl RDW Coeff of Sd (11.0-15.0) % Plt Count (150-400) K/uL MPV (7.40-12.00) fL Neut % (Auto) (48.0-80.0) % Lymph % (Auto) (16.0-40.0) % [place] % (Auto) (0.0-15.0) % Eos % (Auto) (0.0-7.0) % Baso % (Auto) (0.0-1.5) % Neut # (Auto) (1.4-5.7) K/uL Lymph # (Auto) (0.6-2.4) K/uL [place] # (Auto) (0.0-0.8) K/uL Eos # (Auto) (0.0-0.7) K/uL Baso # (Auto) (0.0-0.1) K/uL Nucleated RBC % /100WBC Nucleated RBCs # K/uL Sodium (136-145) mmol/L Potassium (3.5-5.1) mmol/L Chloride (98-107) mmol/L Carbon Dioxide (21.0-32.0) mmol/L BUN (7.0-18.0) mg/dL Creatinine (0.6-1.0) mg/dL Est Cr Clr Drug Dosing mL/min Estimated GFR (MDRD) ml/min Glucose (74-106) mg/dL Calcium (8.5-10.1) mg/dL Total Bilirubin (0.2-1.0) mg/dL AST (15-37) IU/L ALT (14-63) IU/L Alkaline Phosphatase (46-116) U/L Total Protein (6.4-8.2) g/dL Albumin (3.4-5.0) g/dL Globulin (2.0-3.5) g/dL Albumin/Globulin Ratio (1.3-2.8) HCG, Quant mIU/mL Urine Color YELLOW Urine Appearance HAZY Urine pH 6.0 (5.0-8.0) Ur Specific [place] >= 1.030 (1.001-1.035) Urine Protein TRACE (NEGATIVE) mg/dL Urine Glucose (UA) NEGATIVE (NEGATIVE) mg/dL Urine Ketones >=80 (NEGATIVE) mg/dL Urine Occult Blood NEGATIVE (NEGATIVE) Urine Nitrite NEGATIVE (NEGATIVE) Urine Bilirubin NEGATIVE (NEGATIVE) Urine Urobilinogen 0.2 (<2.0) EU/dL Ur Leukocyte Esterase NEGATIVE (NEGATIVE) Urine RBC 1-2 (0-2/HPF) Urine WBC 1-3 (0-5/HPF) Ur Epithelial Cells MODERATE (NONE-FEW) Urine Bacteria 1+ H (NEGATIVE) Urine Mucus LIGHT (NONE-MOD) Meds: Medications Generic Name Dose Route Start Last Admin Trade Name Freq PRN Reason Stop Dose Admin Dextrose/Sodium Chloride 1,000 mls @ 150 mls/hr 08/31/17 04:00 Dextrose 5%-1/2 Ns IV ASDIRECTED DANNI Sodium Chloride 10 ml 08/30/17 22:04 08/30/17 22:16 Saline Flush FLUSH 10 ml ASDIRECTED PRN Administration Keep Vein Open Sodium Chloride 2.5 ml 08/30/17 22:04 08/30/17 22:16 Saline Flush FLUSH 2.5 ml ASDIRECTED PRN Administration Keep Vein Open Discontinued Medications Generic Name Dose Route Start Last Admin Trade Name Freq PRN Reason Stop Dose Admin Diphenhydramine HCl 25 mg 08/31/17 01:59 08/31/17 02:11 Benadryl IVPUSH 08/31/17 02:00 25 mg ONETIME ONE Administration Sodium Chloride 1,000 mls @ 999 mls/hr 08/30/17 22:04 08/30/17 22:15 Normal Saline IV 08/30/17 23:04 999 mls/hr STAT ONE Administration Sodium Chloride 1,000 mls @ 999 mls/hr 08/31/17 00:37 08/31/17 00:48 Normal Saline IV 08/31/17 01:37 999 mls/hr STAT ONE Administration Metoclopramide HCl 10 mg 08/31/17 01:59 08/31/17 02:11 Reglan IV 08/31/17 02:00 10 mg ONETIME ONE Administration Ondansetron HCl 4 mg 08/30/17 22:04 08/30/17 22:16 Zofran IVPUSH 08/30/17 22:05 4 mg ONETIME ONE Administration Ondansetron HCl 4 mg 08/31/17 00:37 08/31/17 00:49 Zofran IVPUSH 08/31/17 00:38 4 mg ONETIME ONE Administration Departure - Departure Time of Disposition: 03:55 Disposition: Refer to Observation Condition: Good Clinical Impression: Hyperemesis gravidarum - Discharge Information Referrals: Jennifer Red MD [Primary Care Provider] - Forms: ED Department Discharge - My Orders Last 24 Hours: My Active Orders 08/30/17 22:03 Saline Lock Insert [OM.PC] Stat 08/30/17 22:04 Sodium Chloride 0.9% [Saline Flush] 10 ml FLUSH ASDIRECTED PRN Sodium Chloride 0.9% [Saline Flush] 2.5 ml FLUSH ASDIRECTED PRN 08/30/17 23:50 UA W/MICROSCOPIC [URIN] Stat 08/31/17 03:53 Patient Status [ADT] Stat 08/31/17 04:00 Dextrose 5%-1/2 Normal Saline @ 150 MLS/HR(1000ml) Dextrose 5%-0.45% NaCl [ Dextrose 5%-1/2 NS] 1,000 ml IV ASDIRECTED - Assessment/Plan Last 24 Hours: My Active Orders 08/30/17 22:03 Saline Lock Insert [OM.PC] Stat 08/30/17 22:04 Sodium Chloride 0.9% [Saline Flush] 10 ml FLUSH ASDIRECTED PRN Sodium Chloride 0.9% [Saline Flush] 2.5 ml FLUSH ASDIRECTED PRN 08/30/17 23:50 UA W/MICROSCOPIC [URIN] Stat 08/31/17 03:53 Patient Status [ADT] Stat 08/31/17 04:00 Dextrose 5%-1/2 Normal Saline @ 150 MLS/HR(1000ml) Dextrose 5%-0.45% NaCl [ Dextrose 5%-1/2 NS] 1,000 ml IV ASDIRECTED
[2017-08-30 22:23] LABS: CHLORIDE,CL 103 mmol/L (98-107); SODIUM,NA 137 mmol/L (136-145)
[2017-08-31] MEDS ORDERED: Sodium Chloride 0.9% 1,000 ML IV ONE (00:37)
[2017-08-31] MEDS ORDERED: Ondansetron 4 MG/2 ML SDV IVPUSH ONE (00:37)
[2017-08-31] MEDS ORDERED: Metoclopramide 10 MG/2 ML SDV IV ONE (01:59)
[2017-08-31] MEDS ORDERED: diphenhydrAMINE 50 MG/ML SDV IVPUSH ONE (01:59)
[2017-08-31] MEDS: Dextrose 5%-0.45% NaCl 1,000 ML IV SCH ×2 (04:01→11:17)
[2017-08-31] MEDS ORDERED: Metoclopramide 10 MG/2 ML SDV IVPUSH PRN (05:06)
[2017-08-31] MEDS ORDERED: Famotidine 20 MG/2 ML SDV IVPUSH ONE (08:20)
[2017-08-31] MEDS ORDERED: Ondansetron 4 MG/2 ML SDV IVPUSH PRN (08:25)
--- NOTE | 2017-08-31 08:47 | PCM.HP ---
H&P History of Present Illness - General Date of Service: 08/31/17 Admit Problem/Dx: Admission Diagnosis/Problem Admission Diagnosis/Problem Hyperemesis gravidarum Source of Information: Patient History Limitations: Reports: No Limitations - History of Present Illness Initial Comments - Free Text/Narative: 22 yo @ 12w0d complaining of nausea and vomiting since yesterday 12 noon . she has not tolerated anything. she vomiting any thing she takes in and is not tolerating solids or fluids. she also complains of dizziness . she denies diarrhea. she states she is feeling dizzy. patient was given zofran and reglan in the ER however she failed the oral challenge. Her Labs are within normal limit Abdomen Pain Score (Numeric/FACES): 5 - Related Data Allergies/Adverse Reactions: Allergies Allergy/AdvReac Type Severity Reaction Status Date / Time ketorolac [From Toradol] Allergy Rash Verified 08/31/17 04:34 Home Medications: Home Meds Pnv No.122/Iron/Folic Acid [ Multi Tablet] 1 each PO DAILY 08/30/17 [ History] Past Medical History - Past Health History Medical/Surgical History: Denies Medical/Surgical History HEENT History: Reports: None Cardiovascular History: Reports: Hypertension, Other (See Below) Other Cardiovascular History: PVC Respiratory History: Reports: None Gastrointestinal History: Reports: Chronic Constipation Genitourinary History: Reports: None 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, Musculoskeletal History: Reports: None Neurological History: Reports: Migraines Psychiatric History: Reports: Anxiety, Depression, Emotional Problems Endocrine/Metabolic History: Reports: None Hematologic History: Reports: None Immunologic History: Reports: None Oncologic (Cancer) History: Reports: None Dermatologic History: Reports: None - Infectious Disease History Infectious Disease History: Reports: None - Past Surgical History Head Surgeries/Procedures: Reports: None HEENT Surgical History: Reports: None Cardiovascular Surgical History: Reports: None GI Surgical History: Reports: None Female Surgical History: Reports: None Social & Family History - Family History Family Medical History: Noncontributory Cardiac: Reports: Aneurysm, Hypertension GI: Reports: Cholelithiasis Endocrine/Metabolic: Reports: Diabetes, type II - Tobacco Use Smoking Status *Q: Never Smoker Years of Tobacco use: 2 Packs/Tins Daily: 0.1 Second Hand Smoke Exposure: Yes - Caffeine Use Caffeine Use: Reports: Soda Caffeine Use Comment: 1 cup - Recreational Drug Use Recreational Drug Use: No H&P Review of Systems - Review of Systems: Review Of Systems: See Below General: Reports: No Symptoms HEENT: Reports: No Symptoms Pulmonary: Reports: No Symptoms Cardiovascular: Reports: Orthopnea Gastrointestinal: Reports: Vomiting Genitourinary: Reports: No Symptoms Musculoskeletal: Reports: No Symptoms Skin: Reports: No Symptoms Psychiatric: Reports: No Symptoms Neurological: Reports: No Symptoms Hematologic/Lymphatic: Reports: No Symptoms Immunologic: Reports: No Symptoms Exam - Exam Exam: See Below - Vital Signs Vital Signs: Last Vital Signs Temp 36.7 C 08/31/17 08:00 Pulse 62 08/31/17 08:00 Resp 16 08/31/17 08:00 BP 97/53 L 08/31/17 08:00 Pulse Ox 97 08/31/17 08:00 Weight: 62.777 kg - Exam General: Alert, Oriented HEENT: Conjunctiva Clear Neck: Supple Lungs: Clear to Auscultation Cardiovascular: Regular Rate, Regular Rhythm GI/Abdominal Exam: Normal Bowel Sounds (Female) Exam: Normal External Exam Back Exam: Normal Inspection Extremities: Normal Inspection - Patient Data Lab Results Last 24 hrs: Laboratory Results - last 24 hr 08/30/17 08/30/17 08/30/17 Range/Units 21:47 21:47 21:47 WBC 6.80 (4.0-11.0) K/uL RBC 4.40 (4.30-5.90) M/uL Hgb 13.1 (12.0-16.0) g/dL Hct 36.7 (36.0-46.0) % MCV 83.4 (80.0-98.0) fL MCH 29.8 (27.0-32.0) pg MCHC 35.7 (31.0-37.0) g/dL RDW Std Deviation 39.9 (28.0-62.0) fl RDW Coeff of Sd 13 (11.0-15.0) % Plt Count 214 (150-400) K/uL MPV 9.30 (7.40-12.00) fL Neut % (Auto) 78.1 (48.0-80.0) % Lymph % (Auto) 17.9 (16.0-40.0) % Wheeler % (Auto) 3.5 (0.0-15.0) % Eos % (Auto) 0.4 (0.0-7.0) % Baso % (Auto) 0.1 (0.0-1.5) % Neut # (Auto) 5.3 (1.4-5.7) K/uL Lymph # (Auto) 1.2 (0.6-2.4) K/uL Wheeler # (Auto) 0.2 (0.0-0.8) K/uL Eos # (Auto) 0.0 (0.0-0.7) K/uL Baso # (Auto) 0.0 (0.0-0.1) K/uL Nucleated RBC % 0.0 /100WBC Nucleated RBCs # 0 K/uL Sodium 137 (136-145) mmol/L Potassium 3.7 (3.5-5.1) mmol/L Chloride 103 (98-107) mmol/L Carbon Dioxide 22.1 (21.0-32.0) mmol/L BUN 9 (7.0-18.0) mg/dL Creatinine 0.6 (0.6-1.0) mg/dL Est Cr Clr Drug Dosing 106.53 mL/min Estimated GFR (MDRD) > 60.0 ml/min Glucose 97 (74-106) mg/dL Calcium 9.2 (8.5-10.1) mg/dL Total Bilirubin 0.6 (0.2-1.0) mg/dL AST 18 (15-37) IU/L ALT 18 (14-63) IU/L Alkaline Phosphatase 43 L (46-116) U/L Total Protein 7.1 (6.4-8.2) g/dL Albumin 3.9 (3.4-5.0) g/dL Globulin 3.2 (2.0-3.5) g/dL Albumin/Globulin Ratio 1.2 L (1.3-2.8) HCG, Quant 55176.0 mIU/mL Urine Color Urine Appearance Urine pH (5.0-8.0) Ur Specific [place] (1.001-1.035) Urine Protein (NEGATIVE) mg/dL Urine Glucose (UA) (NEGATIVE) mg/dL Urine Ketones (NEGATIVE) mg/dL Urine Occult Blood (NEGATIVE) Urine Nitrite (NEGATIVE) Urine Bilirubin (NEGATIVE) Urine Urobilinogen (<2.0) EU/dL Ur Leukocyte Esterase (NEGATIVE) Urine RBC (0-2/HPF) Urine WBC (0-5/HPF) Ur Epithelial Cells (NONE-FEW) Urine Bacteria (NEGATIVE) Urine Mucus (NONE-MOD) 08/30/17 Range/Units 23:50 WBC (4.0-11.0) K/uL RBC (4.30-5.90) M/uL Hgb (12.0-16.0) g/dL Hct (36.0-46.0) % MCV (80.0-98.0) fL MCH (27.0-32.0) pg MCHC (31.0-37.0) g/dL RDW Std Deviation (28.0-62.0) fl RDW Coeff of Sd (11.0-15.0) % Plt Count (150-400) K/uL MPV (7.40-12.00) fL Neut % (Auto) (48.0-80.0) % Lymph % (Auto) (16.0-40.0) % Wheeler % (Auto) (0.0-15.0) % Eos % (Auto) (0.0-7.0) % Baso % (Auto) (0.0-1.5) % Neut # (Auto) (1.4-5.7) K/uL Lymph # (Auto) (0.6-2.4) K/uL Wheeler # (Auto) (0.0-0.8) K/uL Eos # (Auto) (0.0-0.7) K/uL Baso # (Auto) (0.0-0.1) K/uL Nucleated RBC % /100WBC Nucleated RBCs # K/uL Sodium (136-145) mmol/L Potassium (3.5-5.1) mmol/L Chloride (98-107) mmol/L Carbon Dioxide (21.0-32.0) mmol/L BUN (7.0-18.0) mg/dL Creatinine (0.6-1.0) mg/dL Est Cr Clr Drug Dosing mL/min Estimated GFR (MDRD) ml/min Glucose (74-106) mg/dL Calcium (8.5-10.1) mg/dL Total Bilirubin (0.2-1.0) mg/dL AST (15-37) IU/L ALT (14-63) IU/L Alkaline Phosphatase (46-116) U/L Total Protein (6.4-8.2) g/dL Albumin (3.4-5.0) g/dL Globulin (2.0-3.5) g/dL Albumin/Globulin Ratio (1.3-2.8) HCG, Quant mIU/mL Urine Color YELLOW Urine Appearance HAZY Urine pH 6.0 (5.0-8.0) Ur Specific [place] >= 1.030 (1.001-1.035) Urine Protein TRACE (NEGATIVE) mg/dL Urine Glucose (UA) NEGATIVE (NEGATIVE) mg/dL Urine Ketones >=80 (NEGATIVE) mg/dL Urine Occult Blood NEGATIVE (NEGATIVE) Urine Nitrite NEGATIVE (NEGATIVE) Urine Bilirubin NEGATIVE (NEGATIVE) Urine Urobilinogen 0.2 (<2.0) EU/dL Ur Leukocyte Esterase NEGATIVE (NEGATIVE) Urine RBC 1-2 (0-2/HPF) Urine WBC 1-3 (0-5/HPF) Ur Epithelial Cells MODERATE (NONE-FEW) Urine Bacteria 1+ H (NEGATIVE) Urine Mucus LIGHT (NONE-MOD) Result Diagrams: 08/30/17 21:47 08/30/17 21:47 - Problem List (1) Nausea and vomiting during SNOMED Code(s): 89474432, 733596142 ICD Code: O21.9 - VOMITING OF , UNSPECIFIED Status: Acute Current Visit: Yes Problem List Initiated/Reviewed/Updated: Yes Orders Last 24hrs: Active Orders 24 hr Category Date Time Status Patient Status [ADT] Stat ADT 08/31/17 03:53 Active Heart Tones [RC] ASDIRECTED Care 08/31/17 08:21 Active NPO [Nothing Per Oral Diet] [DIET] Diet 08/31/17 Breakfast Active UA W/MICROSCOPIC [URIN] Stat Lab 08/30/17 23:50 Ordered Dextrose 5%-0.45% NaCl [Dextrose 5%-1/2 NS] 1,000 ml Med 08/31/17 04:00 Active IV ASDIRECTED Metoclopramide [Reglan] Med 08/31/17 08:30 Active 10 mg IVPUSH Q6H Ondansetron [Zofran] Med 08/31/17 08:25 Active 4 mg IVPUSH Q6H PRN Sodium Chloride 0.9% [Saline Flush] Med 08/30/17 22:04 Active 10 ml FLUSH ASDIRECTED PRN Sodium Chloride 0.9% [Saline Flush] Med 08/30/17 22:04 Active 2.5 ml FLUSH ASDIRECTED PRN Saline Lock Insert [OM.PC] Stat Oth 08/30/17 22:03 Ordered Medication Orders Dextrose/Sodium Chloride (Dextrose 5%-1/2 Ns) 1,000 mls @ 150 mls/hr IV ASDIRECTED DANNI Last Admin: 08/31/17 04:01 Dose: 150 mls/hr Metoclopramide HCl (Reglan) 10 mg IVPUSH Q6H DANNI Ondansetron HCl (Zofran) 4 mg IVPUSH Q6H PRN PRN Reason: Nausea/Vomiting Sodium Chloride (Saline Flush) 10 ml FLUSH ASDIRECTED PRN PRN Reason: Keep Vein Open Last Admin: 08/30/17 22:16 Dose: 10 ml Sodium Chloride (Saline Flush) 2.5 ml FLUSH ASDIRECTED PRN PRN Reason: Keep Vein Open Last Admin: 08/30/17 22:16 Dose: 2.5 ml Assessment/Plan Comment:: 22 yo @ 12w0d with nausea and vomiting of Plan NPO IVF D5Lr @ 125ml/hr Pepcid 20mg stat Reglan q 6hrs ZOfran prn heart tones check Will advance to clears then BRAT diet
[2017-08-31] MEDS: Metoclopramide 10 MG/2 ML SDV IVPUSH SCH ×2 (09:51→14:04)
[2017-08-31 15:38] VITALS: BP 107/61
--- NOTE | 2017-08-31 17:33 | PCM.PN ---
- General Info Date of Service: 08/31/17 Functional Status: Reports: Pain Controlled, Ambulating, Urinating - Review of Systems General: Denies: Fever Pulmonary: Denies: Shortness of Breath Cardiovascular: Denies: Chest Pain, Palpitations, Lightheadedness Gastrointestinal: Reports: Flatus, Nausea. Denies: Abdominal Pain, Vomiting Skin: Reports: No Symptoms Psychiatric: Reports: No Symptoms - Patient Data Vitals - Most Recent: Last Vital Signs Temp 37.0 C 08/31/17 15:36 Pulse 68 08/31/17 15:36 Resp 14 08/31/17 15:36 BP 107/61 08/31/17 15:36 Pulse Ox 98 08/31/17 15:36 Weight - Most Recent: 62.777 kg I&O - Last 24 Hours: Intake & Output 08/31/17 08/31/17 08/31/17 06:59 14:59 22:59 Intake Total 1706 Output Total 620 Balance 1086 Lab Results Last 24 Hours: Laboratory Results - last 24 hr 08/30/17 08/30/17 08/30/17 Range/Units 21:47 21:47 21:47 WBC 6.80 (4.0-11.0) K/uL RBC 4.40 (4.30-5.90) M/uL Hgb 13.1 (12.0-16.0) g/dL Hct 36.7 (36.0-46.0) % MCV 83.4 (80.0-98.0) fL MCH 29.8 (27.0-32.0) pg MCHC 35.7 (31.0-37.0) g/dL RDW Std Deviation 39.9 (28.0-62.0) fl RDW Coeff of Sd 13 (11.0-15.0) % Plt Count 214 (150-400) K/uL MPV 9.30 (7.40-12.00) fL Neut % (Auto) 78.1 (48.0-80.0) % Lymph % (Auto) 17.9 (16.0-40.0) % [place] % (Auto) 3.5 (0.0-15.0) % Eos % (Auto) 0.4 (0.0-7.0) % Baso % (Auto) 0.1 (0.0-1.5) % Neut # (Auto) 5.3 (1.4-5.7) K/uL Lymph # (Auto) 1.2 (0.6-2.4) K/uL Ballard # (Auto) 0.2 (0.0-0.8) K/uL Eos # (Auto) 0.0 (0.0-0.7) K/uL Baso # (Auto) 0.0 (0.0-0.1) K/uL Nucleated RBC % 0.0 /100WBC Nucleated RBCs # 0 K/uL Sodium 137 (136-145) mmol/L Potassium 3.7 (3.5-5.1) mmol/L Chloride 103 (98-107) mmol/L Carbon Dioxide 22.1 (21.0-32.0) mmol/L BUN 9 (7.0-18.0) mg/dL Creatinine 0.6 (0.6-1.0) mg/dL Est Cr Clr Drug Dosing 106.53 mL/min Estimated GFR (MDRD) > 60.0 ml/min Glucose 97 (74-106) mg/dL Calcium 9.2 (8.5-10.1) mg/dL Total Bilirubin 0.6 (0.2-1.0) mg/dL AST 18 (15-37) IU/L ALT 18 (14-63) IU/L Alkaline Phosphatase 43 L (46-116) U/L Total Protein 7.1 (6.4-8.2) g/dL Albumin 3.9 (3.4-5.0) g/dL Globulin 3.2 (2.0-3.5) g/dL Albumin/Globulin Ratio 1.2 L (1.3-2.8) HCG, Quant 60433.0 mIU/mL Urine Color Urine Appearance Urine pH (5.0-8.0) Ur Specific [place] (1.001-1.035) Urine Protein (NEGATIVE) mg/dL Urine Glucose (UA) (NEGATIVE) mg/dL Urine Ketones (NEGATIVE) mg/dL Urine Occult Blood (NEGATIVE) Urine Nitrite (NEGATIVE) Urine Bilirubin (NEGATIVE) Urine Urobilinogen (<2.0) EU/dL Ur Leukocyte Esterase (NEGATIVE) Urine RBC (0-2/HPF) Urine WBC (0-5/HPF) Ur Epithelial Cells (NONE-FEW) Urine Bacteria (NEGATIVE) Urine Mucus (NONE-MOD) 08/30/17 08/31/17 Range/Units 23:50 12:16 WBC (4.0-11.0) K/uL RBC (4.30-5.90) M/uL Hgb (12.0-16.0) g/dL Hct (36.0-46.0) % MCV (80.0-98.0) fL MCH (27.0-32.0) pg MCHC (31.0-37.0) g/dL RDW Std Deviation (28.0-62.0) fl RDW Coeff of Sd (11.0-15.0) % Plt Count (150-400) K/uL MPV (7.40-12.00) fL Neut % (Auto) (48.0-80.0) % Lymph % (Auto) (16.0-40.0) % [place] % (Auto) (0.0-15.0) % Eos % (Auto) (0.0-7.0) % Baso % (Auto) (0.0-1.5) % Neut # (Auto) (1.4-5.7) K/uL Lymph # (Auto) (0.6-2.4) K/uL Ballard # (Auto) (0.0-0.8) K/uL Eos # (Auto) (0.0-0.7) K/uL Baso # (Auto) (0.0-0.1) K/uL Nucleated RBC % /100WBC Nucleated RBCs # K/uL Sodium (136-145) mmol/L Potassium (3.5-5.1) mmol/L Chloride (98-107) mmol/L Carbon Dioxide (21.0-32.0) mmol/L BUN (7.0-18.0) mg/dL Creatinine (0.6-1.0) mg/dL Est Cr Clr Drug Dosing mL/min Estimated GFR (MDRD) ml/min Glucose (74-106) mg/dL Calcium (8.5-10.1) mg/dL Total Bilirubin (0.2-1.0) mg/dL AST (15-37) IU/L ALT (14-63) IU/L Alkaline Phosphatase (46-116) U/L Total Protein (6.4-8.2) g/dL Albumin (3.4-5.0) g/dL Globulin (2.0-3.5) g/dL Albumin/Globulin Ratio (1.3-2.8) HCG, Quant mIU/mL Urine Color YELLOW YELLOW Urine Appearance HAZY CLEAR Urine pH 6.0 6.0 (5.0-8.0) Ur Specific [place] >= 1.030 1.010 (1.001-1.035) Urine Protein TRACE NEGATIVE (NEGATIVE) mg/dL Urine Glucose (UA) NEGATIVE NEGATIVE (NEGATIVE) mg/dL Urine Ketones >=80 NEGATIVE (NEGATIVE) mg/dL Urine Occult Blood NEGATIVE NEGATIVE (NEGATIVE) Urine Nitrite NEGATIVE NEGATIVE (NEGATIVE) Urine Bilirubin NEGATIVE NEGATIVE (NEGATIVE) Urine Urobilinogen 0.2 0.2 (<2.0) EU/dL Ur Leukocyte Esterase NEGATIVE NEGATIVE (NEGATIVE) Urine RBC 1-2 (0-2/HPF) Urine WBC 1-3 (0-5/HPF) Ur Epithelial Cells MODERATE (NONE-FEW) Urine Bacteria 1+ H (NEGATIVE) Urine Mucus LIGHT (NONE-MOD) Med Orders - Current: Current Medications Dextrose/Sodium Chloride (Dextrose 5%-1/2 Ns) 1,000 mls @ 150 mls/hr IV ASDIRECTED [facility] Last Admin: 08/31/17 11:17 Dose: 150 mls/hr Metoclopramide HCl (Reglan) 10 mg IVPUSH Q6H [facility] Last Admin: 08/31/17 14:04 Dose: 10 mg Ondansetron HCl (Zofran) 4 mg IVPUSH Q6H PRN PRN Reason: Nausea/Vomiting Sodium Chloride (Saline Flush) 10 ml FLUSH ASDIRECTED PRN PRN Reason: Keep Vein Open Last Admin: 08/30/17 22:16 Dose: 10 ml Sodium Chloride (Saline Flush) 2.5 ml FLUSH ASDIRECTED PRN PRN Reason: Keep Vein Open Last Admin: 08/30/17 22:16 Dose: 2.5 ml Discontinued Medications Diphenhydramine HCl (Benadryl) 25 mg IVPUSH ONETIME ONE Stop: 08/31/17 02:00 Last Admin: 08/31/17 02:11 Dose: 25 mg Famotidine (Pepcid) 20 mg IVPUSH ONETIME ONE Stop: 08/31/17 08:21 Last Admin: 08/31/17 09:50 Dose: 20 mg Sodium Chloride (Normal Saline) 1,000 mls @ 999 mls/hr IV STAT ONE Stop: 08/30/17 23:04 Last Admin: 08/30/17 22:15 Dose: 999 mls/hr Sodium Chloride (Normal Saline) 1,000 mls @ 999 mls/hr IV STAT ONE Stop: 08/31/17 01:37 Last Admin: 08/31/17 00:48 Dose: 999 mls/hr Metoclopramide HCl (Reglan) 10 mg IV ONETIME ONE Stop: 08/31/17 02:00 Last Admin: 08/31/17 02:11 Dose: 10 mg Metoclopramide HCl (Reglan) 10 mg IVPUSH Q4H PRN PRN Reason: Nausea/Vomiting Ondansetron HCl (Zofran) 4 mg IVPUSH ONETIME ONE Stop: 08/30/17 22:05 Last Admin: 08/30/17 22:16 Dose: 4 mg Ondansetron HCl (Zofran) 4 mg IVPUSH ONETIME ONE Stop: 08/31/17 00:38 Last Admin: 08/31/17 00:49 Dose: 4 mg - Exam General: Alert, Oriented Lungs: Normal Respiratory Effort Cardiovascular: Regular Rate, Regular Rhythm GI/Abdominal Exam: Normal Bowel Sounds, Soft Back Exam: No: CVA Tenderness (L), CVA Tenderness (R) Extremities: No Pedal Edema. No: Geronimo's Sign Skin: Warm, Dry, Intact Psy/Mental Status: Alert - Problem List & Annotations (1) Nausea and vomiting during SNOMED Code(s): 27538014, 533453064 Code(s): O21.9 - VOMITING OF , UNSPECIFIED Status: Acute Current Visit: Yes - Problem List Review Problem List Initiated/Reviewed/Updated: Yes - My Orders Last 24 Hours: My Active Orders 08/31/17 12:16 URINALYSIS W/O MICROSCOPIC [UA W/O MICROSCOPIC] [URIN] Routine 08/31/17 Dinner Clear Liquid Diet [DIET] - Assessment Assessment:: Nausea and vomiting of - Plan Plan:: Follow up UA reveals no ketones. Is voiding and ambulating halls. Tolerating clears liquids, mild nausea but no emesis. Allow discharge to home with antiemetics, reglan sent in for prescription. Follow up in clinic as scheduled.
== END 2017-08-31 18:39 | disposition home or self-care (01) ==
LOC: MW.ED 21:27 → MW.MS 08-31 03:53
PROVIDERS: ADMIT Obstetrics & Gynecology; ATTEND Obstetrics & Gynecology
DX: O21.9 Vomiting of pregnancy, unspecified (principal); O99.341 Other mental disorders complicating pregnancy, first trimester; F41.8 Other specified anxiety disorders; O16.1 Unspecified maternal hypertension, first trimester; Z88.8 Allergy status to other drugs, medicaments and biological substances; Z79.899 Other long term (current) drug therapy; Z3A.12 12 weeks gestation of pregnancy
CPT/HCPCS: 36415; 80053; 81001; 81003; 84702; 85025; 96361; 96374; 96375; 96376; 99285; J1200; J2405; J2765; J7040; J7042; 99284; G0378

== ENCOUNTER 2017-09-01 22:37 | Emergency (ER) | payer BC, MEDICAID ==
[2017-09-01] MEDS ORDERED: Metoclopramide 10 MG/2 ML SDV IV ONE (23:06)
[2017-09-01] MEDS ORDERED: Sodium Chloride 0.9% 1,000 ML IV ONE (23:06)
[2017-09-01] MEDS ORDERED: Sodium Chloride 0.9% 10 ML Syringe FLUSH PRN (23:06)
[2017-09-01] MEDS ORDERED: Ondansetron 4 MG/2 ML SDV IVPUSH ONE (23:06)
--- NOTE | 2017-09-01 23:08 | EDM.PDOC ---
ED HPI GENERAL MEDICAL PROBLEM - General Chief Complaint: Gastrointestinal Problem Stated Complaint: 12 WEEKS /DIZZY VOMITING Time Seen by Provider: 09/01/17 22:58 - History of Present Illness INITIAL COMMENTS - FREE TEXT/NARRATIVE: HISTORY AND PHYSICAL: History of present illness: The patient is a 22-year-old female who is about 12 weeks and presents with persistent vomiting since she was discharged from the hospital yesterday. I saw and evaluated this patient and admitted her to the hospital for hyperemesis gravidarum 08/30-08/31. According to the patient she was given Reglan in the hospital and she did have vomiting just before she was discharged but overall felt improved. The patient said that she went home and was not able to tolerate anything by mouth including her medications. She has no specific abdominal complaints or vaginal bleeding no fevers no diarrhea and no urinary complaints. The patient had an ultrasound in the clinic earlier in her documenting an IUP and an ultrasound was not repeated a day and a half ago. The patient said she has not contacted her provider in the clinic throughout the day today or this evening for advice for further management. Review of systems: As per history of present illness and below otherwise all systems reviewed and negative. Past medical history: As per history of present illness and as reviewed below otherwise noncontributory. Surgical history: As per history of present illness and as reviewed below otherwise noncontributory. Social history: No reported history of drug or alcohol abuse. Family history: As per history of present illness and as reviewed below otherwise noncontributory. Physical exam: General: Well-developed well-nourished female who is nontoxic and vital signs have been reviewed by me HEENT: Atraumatic, normocephalic, pupils reactive, negative for conjunctival pallor or scleral icterus, mucous membranes tacky throat clear, neck supple, nontender, trachea midline. Lungs: Clear to auscultation, breath sounds equal bilaterally, chest nontender. Heart: S1S2, regular rate and rhythm no overt murmurs Abdomen: Soft, nondistended, nontender. NABS Pelvis: Stable nontender. Genitourinary: Deferred. Rectal: Deferred. Extremities: Atraumatic, negative for cords or calf pain. Neurovascular unremarkable. Neuro: Awake, alert, oriented. Cranial nerves II through XII unremarkable. Cerebellum unremarkable. Motor and sensory unremarkable throughout. Exam nonfocal. Diagnostics: CBC CMP UA Therapeutics: IV fluids Zofran and Reglan Please note that nursing has informed me that the patient is refusing Zofran and will only accept the Reglan 0035: After the Reglan and IV fluids the patient says she feels significantly better and is no longer nauseated. 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 0106: Patient tolerated a Popsicle as well as by mouth water without nausea or vomiting and is currently resting in the room. I discussed this case as well as the test results with Dr. Mendez; she would like a second liter of IV fluids and a prescription for Phenergan suppositories for home. I've talked with the patient and family at bedside about this care plan and she can continue using the Reglan she has or the Phenergan suppositories. I've advised her to please keep in close contact with her OB M.D. at [facility] for further guidance with the symptoms. We'll plan on discharge after the second liter of IV fluids Impression: Vomiting with history of hyperemesis gravidarum, dehydration, improving Definitive disposition and diagnosis as appropriate pending reevaluation and review of above. Abdomen Pain Score (Numeric/FACES): 4 - Related Data Allergies Allergy/AdvReac Type Severity Reaction Status Date / Time ketorolac [From Toradol] Allergy Rash Verified 09/01/17 22:54 Home Meds: Home Meds Pnv No.122/Iron/Folic Acid [ Multi Tablet] 1 each PO DAILY 08/30/17 [ History] Metoclopramide HCl [Reglan] 5 mg PO Q6HR 09/01/17 [History] Past Medical History - Past Health History Medical/Surgical History: Denies Medical/Surgical History HEENT History: Reports: None Cardiovascular History: Reports: Hypertension, Other (See Below) Other Cardiovascular History: PVC Respiratory History: Reports: None Gastrointestinal History: Reports: Chronic Constipation Genitourinary History: Reports: None 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, Musculoskeletal History: Reports: None Neurological History: Reports: Migraines Psychiatric History: Reports: Anxiety, Depression, Emotional Problems Endocrine/Metabolic History: Reports: None Hematologic History: Reports: None Immunologic History: Reports: None Oncologic (Cancer) History: Reports: None Dermatologic History: Reports: None - Infectious Disease History Infectious Disease History: Reports: None - Past Surgical History Head Surgeries/Procedures: Reports: None HEENT Surgical History: Reports: None Cardiovascular Surgical History: Reports: None GI Surgical History: Reports: None Female Surgical History: Reports: None Social & Family History - Family History Family Medical History: Noncontributory Cardiac: Reports: Aneurysm, Hypertension GI: Reports: Cholelithiasis Endocrine/Metabolic: Reports: Diabetes, type II - Tobacco Use Smoking Status *Q: Never Smoker Years of Tobacco use: 2 Packs/Tins Daily: 0.1 Second Hand Smoke Exposure: Yes - Caffeine Use Caffeine Use: Reports: Soda Caffeine Use Comment: 1 cup - Recreational Drug Use Recreational Drug Use: No ED ROS GENERAL - Review of Systems Review Of Systems: ROS reveals no pertinent complaints other than HPI. ED EXAM, GENERAL - Physical Exam Exam: See Below (See dictation) Course - Vital Signs Last Recorded V/S: Last Vital Signs Temp 36.4 C 09/01/17 22:56 Pulse 68 09/01/17 22:56 Resp 18 09/01/17 22:56 BP 119/78 09/01/17 22:56 Pulse Ox 98 09/01/17 22:56 - Orders/Labs/Meds Orders: Active Orders 24 hr Category Date Time Status UA W/MICROSCOPIC [URIN] Stat Lab 09/01/17 23:30 Ordered Sodium Chloride 0.9% [Normal Saline] 1,000 ml Med 09/02/17 01:10 Ordered IV STAT Sodium Chloride 0.9% [Saline Flush] Med 09/01/17 23:06 Active 10 ml FLUSH ASDIRECTED PRN Sodium Chloride 0.9% [Saline Flush] Med 09/01/17 23:06 Active 2.5 ml FLUSH ASDIRECTED PRN Saline Lock Insert [OM.PC] Stat Oth 09/01/17 23:06 Ordered Medication Orders Sodium Chloride (Normal Saline) 1,000 mls @ 999 mls/hr IV STAT ONE Stop: 09/02/17 02:10 Sodium Chloride (Saline Flush) 10 ml FLUSH ASDIRECTED PRN PRN Reason: Keep Vein Open Sodium Chloride (Saline Flush) 2.5 ml FLUSH ASDIRECTED PRN PRN Reason: Keep Vein Open Last Admin: 09/01/17 23:36 Dose: 2.5 ml Admin: 09/01/17 23:35 Dose: 2.5 ml Labs: Laboratory Tests 09/01/17 09/01/17 09/01/17 Range/Units 23:30 23:35 23:35 WBC 5.96 (4.0-11.0) K/uL RBC 3.99 L (4.30-5.90) M/uL Hgb 11.8 L (12.0-16.0) g/dL Hct 33.4 L (36.0-46.0) % MCV 83.7 (80.0-98.0) fL MCH 29.6 (27.0-32.0) pg MCHC 35.3 (31.0-37.0) g/dL RDW Std Deviation 39.5 (28.0-62.0) fl RDW Coeff of Sd 13 (11.0-15.0) % Plt Count 180 (150-400) K/uL MPV 9.30 (7.40-12.00) fL Neut % (Auto) 67.0 (48.0-80.0) % Lymph % (Auto) 25.5 (16.0-40.0) % [place] % (Auto) 6.7 (0.0-15.0) % Eos % (Auto) 0.8 (0.0-7.0) % Baso % (Auto) 0.0 (0.0-1.5) % Neut # (Auto) 4.0 (1.4-5.7) K/uL Lymph # (Auto) 1.5 (0.6-2.4) K/uL [place] # (Auto) 0.4 (0.0-0.8) K/uL Eos # (Auto) 0.1 (0.0-0.7) K/uL Baso # (Auto) 0.0 (0.0-0.1) K/uL Nucleated RBC % 0.0 /100WBC Nucleated RBCs # 0 K/uL Sodium 139 (136-145) mmol/L Potassium 3.2 L (3.5-5.1) mmol/L Chloride 104 (98-107) mmol/L Carbon Dioxide 24.2 (21.0-32.0) mmol/L BUN 11 (7.0-18.0) mg/dL Creatinine 0.5 L (0.6-1.0) mg/dL Est Cr Clr Drug Dosing 127.84 mL/min Estimated GFR (MDRD) > 60.0 ml/min Glucose 75 (74-106) mg/dL Calcium 8.8 (8.5-10.1) mg/dL Total Bilirubin 0.5 (0.2-1.0) mg/dL AST 16 (15-37) IU/L ALT 15 (14-63) IU/L Alkaline Phosphatase 36 L (46-116) U/L Total Protein 6.3 L (6.4-8.2) g/dL Albumin 3.5 (3.4-5.0) g/dL Globulin 2.8 (2.0-3.5) g/dL Albumin/Globulin Ratio 1.2 L (1.3-2.8) Urine Color YELLOW Urine Appearance SLT CLOUDY Urine pH 6.0 (5.0-8.0) Ur Specific [place] >= 1.030 (1.001-1.035) Urine Protein TRACE (NEGATIVE) mg/dL Urine Glucose (UA) NEGATIVE (NEGATIVE) mg/dL Urine Ketones >=80 (NEGATIVE) mg/dL Urine Occult Blood NEGATIVE (NEGATIVE) Urine Nitrite NEGATIVE (NEGATIVE) Urine Bilirubin SMALL H (NEGATIVE) Urine Ictotest NEGATIVE Urine Urobilinogen 1.0 (<2.0) EU/dL Ur Leukocyte Esterase NEGATIVE (NEGATIVE) Urine RBC 0-1 (0-2/HPF) Urine WBC 1-3 (0-5/HPF) Ur Epithelial Cells FEW (NONE-FEW) Urine Bacteria FEW (NEGATIVE) Urine Mucus MODERATE (NONE-MOD) Meds: Medications Generic Name Dose Route Start Last Admin Trade Name Freq PRN Reason Stop Dose Admin Sodium Chloride 1,000 mls @ 999 mls/hr 09/02/17 01:10 Normal Saline IV 09/02/17 02:10 STAT ONE Sodium Chloride 10 ml 09/01/17 23:06 Saline Flush FLUSH ASDIRECTED PRN Keep Vein Open Sodium Chloride 2.5 ml 09/01/17 23:06 09/01/17 23:36 Saline Flush FLUSH 2.5 ml ASDIRECTED PRN Administration Keep Vein Open Discontinued Medications Generic Name Dose Route Start Last Admin Trade Name Freq PRN Reason Stop Dose Admin Sodium Chloride 1,000 mls @ 999 mls/hr 09/01/17 23:06 09/01/17 23:40 Normal Saline IV 09/02/17 00:06 999 mls/hr STAT ONE Administration Metoclopramide HCl 10 mg 09/01/17 23:06 09/01/17 23:40 Reglan IV 09/01/17 23:07 10 mg ONETIME ONE Administration Ondansetron HCl 4 mg 09/01/17 23:06 09/02/17 01:03 Zofran IVPUSH 09/01/17 23:07 Not Given ONETIME ONE Departure - Departure Time of Disposition: :15 Disposition: Home, Self-Care 01 Condition: Good Clinical Impression: Hyperemesis gravidarum, Dehydration - Discharge Information Referrals: PCP,None [Primary Care Provider] - Forms: ED Department Discharge Additional Instructions: The following information is given to patients seen in the emergency department who are being discharged to home. This information is to outline your options for follow-up care. We provide all patients seen in our emergency department with a follow-up referral. The need for follow-up, as well as the timing and circumstances, are variable depending upon the specifics of your emergency department visit. If you don't have a primary care physician on staff, we will provide you with a referral. We always advise you to contact your personal physician following an emergency department visit to inform them of the circumstance of the visit and for follow-up with them and/or the need for any referrals to a consulting specialist. The emergency department will also refer you to a specialist when appropriate. This referral assures that you have the opportunity for followup care with a specialist. All of these measure are taken in an effort to provide you with optimal care, which includes your followup. Under all circumstances we always encourage you to contact your private physician who remains a resource for coordinating your care. When calling for followup care, please make the office aware that this follow-up is from your recent emergency room visit. If for any reason you are refused follow-up, please contact the [facility] emergency department at and ask to speak to the emergency department charge nurse. [address] [address] Please use the Reglan that you have at home for nausea and vomiting or try the Phenergan suppositories as prescribed this evening. Please take small sips of fluids such as Gatorade water and popsicles as well as bland bites of food frequently and in small amounts. Please call and follow-up with your OB Nalini, Dr. Red, and return to ER as needed and as discussed - My Orders Last 24 Hours: My Active Orders 09/01/17 23:06 Sodium Chloride 0.9% [Saline Flush] 10 ml FLUSH ASDIRECTED PRN Sodium Chloride 0.9% [Saline Flush] 2.5 ml FLUSH ASDIRECTED PRN Saline Lock Insert [OM.PC] Stat 09/01/17 23:30 UA W/MICROSCOPIC [URIN] Stat 09/02/17 01:10 Sodium Chloride 0.9% [Normal Saline] 1,000 ml IV STAT - Assessment/Plan Last 24 Hours: My Active Orders 09/01/17 23:06 Sodium Chloride 0.9% [Saline Flush] 10 ml FLUSH ASDIRECTED PRN Sodium Chloride 0.9% [Saline Flush] 2.5 ml FLUSH ASDIRECTED PRN Saline Lock Insert [OM.PC] Stat 09/01/17 23:30 UA W/MICROSCOPIC [URIN] Stat 09/02/17 01:10 Sodium Chloride 0.9% [Normal Saline] 1,000 ml IV STAT
[2017-09-01] MEDS: Sodium Chloride 0.9% 2.5 ML Syringe FLUSH PRN ×2 (23:35→23:36)
[2017-09-02 00:06] LABS: CHLORIDE,CL 104 mmol/L (98-107); SODIUM,NA 139 mmol/L (136-145)
[2017-09-02] MEDS ORDERED: Sodium Chloride 0.9% 1,000 ML IV ONE (01:10)
[2017-09-02 02:34] VITALS: BP 109/70
== END 2017-09-02 02:25 | disposition home or self-care (01) ==
LOC: MW.ED 22:37
DX: O21.1 Hyperemesis gravidarum with metabolic disturbance (principal); I10 Essential (primary) hypertension; Z3A.12 12 weeks gestation of pregnancy; Z88.1 Allergy status to other antibiotic agents; Z77.22 Contact with and (suspected) exposure to environmental tobacco smoke (acute) (chronic)
CPT/HCPCS: 80053; 81001; 85025; 96361; 96374; 99284; J2765; J7040; 99283

== ENCOUNTER 2018-03-07 05:06 | Inpatient (IN) | payer BC ==
[2018-03-07] MEDS ORDERED: Methylergonovine 0.2 MG/1 ML Amp IM PRN (05:34)
[2018-03-07] MEDS ORDERED: Nalbuphine 10 MG/1 ML Vial IVPUSH PRN (05:34)
[2018-03-07] MEDS ORDERED: Misoprostol 200 MCG Tab PO PRN (05:34)
[2018-03-07] MEDS ORDERED: Sodium Chloride 0.9% 2.5 ML Syringe FLUSH PRN (05:34)
[2018-03-07] MEDS ORDERED: Water For Irrigation,Sterile 1,000 ML Container IRR PRN (05:34)
[2018-03-07] MEDS ORDERED: Terbutaline 1 MG/ML SDV SUBCUT PRN (05:34)
[2018-03-07] MEDS ORDERED: Lidocaine 1% 50 ML MDV INJECT PRN (05:34)
[2018-03-07] MEDS ORDERED: Carboprost Tromethamine 250 MCG/1 ML Amp IM PRN (05:34)
[2018-03-07] MEDS ORDERED: Tranexamic Acid 1,000 MG in Sodium Chloride 0.9% 100 ML IV PRN (05:34)
[2018-03-07] MEDS ORDERED: Sodium Chloride 0.9% 10 ML Syringe FLUSH PRN (05:34)
[2018-03-07] MEDS ORDERED: Oxytocin/0.9 % Sodium Chloride 30 UNIT/500 ML BAG IV SCH ×2 (05:45)
[2018-03-07] MEDS: Lactated Ringers 1,000 ML IV SCH ×3 (06:32→15:51)
--- NOTE | 2018-03-07 09:01 | PCM.LDHP ---
L&D History of Present Illness - General Date of Service: 03/07/18 Admit Problem/Dx: Patient Status Order with Admit Dx/Problem 03/07/18 05:34 Patient Status [ADT] Routine Admission Diagnosis/Problem Admission Diagnosis/Problem 03/07/18 08:54 22yo P1001, EDC 03/15/2018 38 6/7wks, O+, RI, GBS neg. IOL for term/ Increased discomforts of . Source of Information: Patient History Limitations: Reports: No Limitations - History of Present Illness Improves with: Reports: None Worsens with: Reports: None Associated Symptoms: Reports: N - Related Data Allergies/Adverse Reactions: Allergies Allergy/AdvReac Type Severity Reaction Status Date / Time ketorolac [From Toradol] Allergy Rash Verified 03/07/18 05:31 Home Medications: Home Meds . 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: Musculoskeletal History: Reports: None Neurological History: Reports: Migraines Psychiatric History: Reports: Anxiety, Depression, Emotional Problems Endocrine/Metabolic History: Reports: None Hematologic History: Reports: None Immunologic History: Reports: None Oncologic (Cancer) History: Reports: None Dermatologic History: Reports: None - Infectious Disease History Infectious Disease History: Reports: None - Past Surgical History HEENT Surgical History: Reports: None Cardiovascular Surgical History: Reports: None Social & Family History - Family History Family Medical History: Noncontributory Cardiac: Reports: Aneurysm, High Cholesterol, Hypertension GI: Reports: Cholelithiasis OBGYN: Reports: Endocrine/Metabolic: Reports: Diabetes, type II Oncologic: Reports: Other (See Below) Other Oncologic Family History: hx of cancer in family but does not remember what kind - Tobacco Use Smoking Status *Q: Former Smoker Used Tobacco, but Quit: Yes Month/Year Tobacco Last Used: 2015 - Caffeine Use Caffeine Use: Reports: Soda, Tea Caffeine Use Comment: 1 cup - Recreational Drug Use Recreational Drug Use: No H&P Review of Systems - Review of Systems: Review Of Systems: See Below General: Reports: No Symptoms HEENT: Reports: No Symptoms Pulmonary: Reports: No Symptoms Cardiovascular: Reports: No Symptoms Gastrointestinal: Reports: No Symptoms Genitourinary: Reports: No Symptoms Musculoskeletal: Reports: No Symptoms Skin: Reports: No Symptoms Psychiatric: Reports: No Symptoms Neurological: Reports: No Symptoms Hematologic/Lymphatic: Reports: No Symptoms Immunologic: Reports: No Symptoms L&D Exam - Exam Exam: See Below - Vital Signs Weight: 69.4 kg - OB Specific Contraction Intensity: Mild to Moderate Movement: Active Heart Tones: Present Heart Tones per Min: 140 Heart Rate (FHR) Variability: Moderate (6-25 bmp) Presentation: Vertex Estimated Weight: 3000 - Soto Score Soto Score Cervix Position: Midposition Soto Score Consistency: Soft Soto Score Effacement: 51-70% Soto Score Dilation: 3-4 cm Soto Score 's Station: -1 ,0 Soto Score Total: 9 - Exam General: Alert, Oriented, Cooperative HEENT: Hearing Intact Lungs: Clear to Auscultation, Normal Respiratory Effort Cardiovascular: Regular Rate, Regular Rhythm, Normal S1, Normal S2 GI/Abdominal Exam: Soft, Non-Tender Rectal Exam: Deferred Genitourinary: Cervical dilitation Back Exam: Normal Inspection, Full Range of Motion Extremities: Normal Inspection, Normal Range of Motion, Non-Tender, No Pedal Edema, Normal Capillary Refill Skin: Warm, Dry, Intact Neurological: Cranial Nerves Intact, Strength Equal Bilateral, Normal Speech, Normal Tone Psychiatric: Alert, Normal Affect, Normal Mood - Patient Data Lab Results Last 24 hrs: Laboratory Results - last 24 hr 03/07/18 03/07/18 Range/Units 06:16 06:16 WBC 6.42 (4.0-11.0) K/uL RBC 3.60 L (4.30-5.90) M/uL Hgb 9.1 L (12.0-16.0) g/dL Hct 28.4 L (36.0-46.0) % MCV 78.9 L (80.0-98.0) fL MCH 25.3 L (27.0-32.0) pg MCHC 32.0 (31.0-37.0) g/dL RDW Std Deviation 38.6 (28.0-62.0) fl RDW Coeff of Sd 14 (11.0-15.0) % Plt Count 178 (150-400) K/uL MPV 9.30 (7.40-12.00) fL Nucleated RBC % 0.0 /100WBC Nucleated RBCs # 0 K/uL Blood Type O POSITIVE Antibody Screen NEGATIVE Result Diagrams: 03/07/18 06:16 - Problem List (1) Supervision of normal IUP (intrauterine ) in multigravida SNOMED Code(s): 863166831, 396676767, 736085730 ICD Code: Z34.80 - ENCOUNTER FOR SUPRVSN OF NORMAL , UNSP TRIMESTER Status: Acute Current Visit: Yes Qualifiers: Trimester: third trimester Qualified Code(s): Z34.83 - Encounter for supervision of other normal , third trimester Problem List Initiated/Reviewed/Updated: Yes Orders Last 24hrs: Active Orders 24 hr Category Date Time Status Patient Status [ADT] Routine ADT 03/07/18 05:34 Active Bedrest Bathroom Privileges [RC] ASDIRECTED Care 03/07/18 05:34 Active Communication Order [RC] ASDIRECTED Care 03/07/18 05:34 Active Communication Order [RC] ASDIRECTED Care 03/07/18 05:34 Active Communication Order [RC] ASDIRECTED Care 03/07/18 05:34 Active Heart Tones [RC] CONTINUOUS Care 03/07/18 05:34 Active Non Stress Test [RC] PER UNIT ROUTINE Care 03/07/18 05:34 Active May Shower [RC] ASDIRECTED Care 03/07/18 05:34 Active Notify Provider [RC] PRN Care 03/07/18 05:34 Active Notify Provider [RC] PRN Care 03/07/18 05:34 Active Notify Provider [RC] PRN Care 03/07/18 05:34 Active Notify Provider [RC] STAT Care 03/07/18 05:34 Active Oxygen Therapy [RC] ASDIRECTED Care 03/07/18 05:34 Active Up ad [place] [RC] ASDIRECTED Care 03/07/18 05:34 Active Vaginal Exam [RC] PRN Care 03/07/18 05:34 Active Vaginal Exam [RC] PRN Care 03/07/18 05:34 Active Vital Signs [RC] PER UNIT ROUTINE Care 03/07/18 05:34 Active Vital Signs [RC] PER UNIT ROUTINE Care 03/07/18 05:34 Active Regular Diet [DIET] Diet 03/07/18 Breakfast Active Carboprost Tromethamine [Hemabate DS] Med 03/07/18 05:34 Active 250 mcg IM ASDIRECTED PRN Lactated Ringers [Ringers, Lactated] 1,000 ml Med 03/07/18 05:45 Active IV ASDIRECTED Lidocaine 1% [Xylocaine 1%] Med 03/07/18 05:34 Active 50 ml INJECT ONETIME PRN Methylergonovine [Methergine] Med 03/07/18 05:34 Active 0.2 mg IM ASDIRECTED PRN Nalbuphine [Nubain] Med 03/07/18 05:34 Active 10 mg IVPUSH Q1H PRN Oxytocin/0.9 % Sodium Chloride [Oxytocin 30 Unit/500 ML Med 03/07/18 05:45 Active -NS] 30 unit in 500 ml IV TITRATE Oxytocin/0.9 % Sodium Chloride [Oxytocin 30 Unit/500 ML Med 03/07/18 05:45 Active -NS] 30 unit in 500 ml IV TITRATE Sodium Chloride 0.9% [Saline Flush] Med 03/07/18 05:34 Active 10 ml FLUSH ASDIRECTED PRN Sodium Chloride 0.9% [Saline Flush] Med 03/07/18 05:34 Active 2.5 ml FLUSH ASDIRECTED PRN Terbutaline [Brethine] Med 03/07/18 05:34 Active 0.25 mg SUBCUT ASDIRECTED PRN Tranexamic Acid [Cyklokapron] 1,000 mg Med 03/07/18 05:34 Active Sodium Chloride 0.9% [Normal Saline] 100 ml IV ONETIME Water For Irrigation,Sterile [Sterile Water for Med 03/07/18 05:34 Active Irrigation] 1,000 ml IRR ASDIRECTED PRN miSOPROStol [Cytotec] Med 03/07/18 05:34 Active 200 mcg PO ONETIME PRN Scalp Electrode [WOMSER] Per Unit Routine Oth 03/07/18 05:34 Ordered Medication Administration Instruction [OM.PC] Q3H Oth 03/07/18 05:45 Ordered Peripheral IV Insertion Adult [OM.PC] Routine Oth 03/07/18 05:34 Ordered Resuscitation Status Routine Resus Stat 03/07/18 05:34 Ordered Medication Orders Carboprost Tromethamine (Hemabate Ds) 250 mcg IM ASDIRECTED PRN PRN Reason: Post Hemorrhage Lactated Ringer's (Ringers, Lactated) 1,000 mls @ 150 mls/hr IV ASDIRECTED DANNI Last Admin: 03/07/18 06:32 Dose: 150 mls/hr Oxytocin/Sodium Chloride (Oxytocin 30 Unit/500 Ml-Ns) 30 unit in 500 mls @ 999 mls/hr IV TITRATE DANNI Oxytocin/Sodium Chloride (Oxytocin 30 Unit/500 Ml-Ns) 30 unit in 500 mls @ 2 mls/hr IV TITRATE DANNI; Protocol Last Titration: 03/07/18 08:04 Dose: 6 munits/min, 6 mls/hr Titration: 03/07/18 07:12 Dose: 4 munits/min, 4 mls/hr Admin: 03/07/18 06:33 Dose: 2 munits/min, 2 mls/hr Tranexamic Acid 1,000 mg/ (Sodium Chloride) 110 mls @ 660 mls/hr IV ONETIME PRN PRN Reason: Bleeding Lidocaine HCl (Xylocaine 1%) 50 ml INJECT ONETIME PRN PRN Reason: Laceration repair Methylergonovine Maleate (Methergine) 0.2 mg IM ASDIRECTED PRN PRN Reason: Post Hemorrhage Misoprostol (Cytotec) 200 mcg PO ONETIME PRN PRN Reason: Post Hemorrhage Nalbuphine HCl (Nubain) 10 mg IVPUSH Q1H PRN PRN Reason: Pain (severe 7-10) Sodium Chloride (Saline Flush) 10 ml FLUSH ASDIRECTED PRN PRN Reason: Keep Vein Open Sodium Chloride (Saline Flush) 2.5 ml FLUSH ASDIRECTED PRN PRN Reason: Keep Vein Open Sterile Water (Sterile Water For Irrigation) 1,000 ml IRR ASDIRECTED PRN PRN Reason: delivery Terbutaline Sulfate (Brethine) 0.25 mg SUBCUT ASDIRECTED PRN PRN Reason: Tacysystole Assessment/Plan Comment:: IOL A: 22yo P1001, EDC 03/15/2018 38 6/7wks, O+, RI, GBS neg. IOL for term /Increased discomforts of . P: admit, pitocin, pain meds.epidural prn, anticipate , Dr Guevara updated
[2018-03-07] MEDS ORDERED: Acetaminophen 500 MG Tab PO PRN ×3 (09:59→17:20)
--- NOTE | 2018-03-07 13:04 | PCM.PREANE ---
Preanesthetic Assessment - Anesthesia/Transfusion/Family Hx Anesthesia History: Prior Anesthesia Without Reaction Family History of Anesthesia Reaction: No Transfusion History: No Prior Transfusion(s) - Review of Systems General: No Symptoms Pulmonary: No Symptoms Cardiovascular: No Symptoms Gastrointestinal: No Symptoms Neurological: No Symptoms Other: Reports: None - Physical Assessment Height: 5 ft Weight: 69.4 kg ASA Class: 2 Mental Status: Alert & Oriented x3 Dentition: Reports: Normal Dentition Thyro-Mental Finger Breadths: 3 Mouth Opening Finger Breadths: 3 ROM/Head Extension: Full Lungs: Clear to Auscultation, Normal Respiratory Effort Cardiovascular: Regular Rate, Regular Rhythm - Lab Values: Laboratory Last Values WBC 6.42 K/uL (4.0-11.0) 03/07/18 06:16 RBC 3.60 M/uL (4.30-5.90) L 03/07/18 06:16 Hgb 9.1 g/dL (12.0-16.0) L 03/07/18 06:16 Hct 28.4 % (36.0-46.0) L 03/07/18 06:16 MCV 78.9 fL (80.0-98.0) L 03/07/18 06:16 MCH 25.3 pg (27.0-32.0) L 03/07/18 06:16 MCHC 32.0 g/dL (31.0-37.0) 03/07/18 06:16 RDW Std Deviation 38.6 fl (28.0-62.0) 03/07/18 06:16 RDW Coeff of Sd 14 % (11.0-15.0) 03/07/18 06:16 Plt Count 178 K/uL (150-400) 03/07/18 06:16 MPV 9.30 fL (7.40-12.00) 03/07/18 06:16 Nucleated RBC % 0.0 /100WBC 03/07/18 06:16 Nucleated RBCs # 0 K/uL 03/07/18 06:16 Blood Type O POSITIVE 03/07/18 06:16 Antibody Screen NEGATIVE 03/07/18 06:16 - Allergies Allergies/Adverse Reactions: Allergies Allergy/AdvReac Type Severity Reaction Status Date / Time ketorolac [From Toradol] Allergy Rash Verified 03/07/18 05:31 - Blood Blood Available: Yes Product(s) Available: PRBC - Acknowledgements Anesthesia Type Planned: Epidural Pt an Appropriate Candidate for the Planned Anesthesia: Yes Alternatives and Risks of Anesthesia Discussed w Pt/Guardian: Yes Pt/Guardian Understands and Agrees with Anesthesia Plan: Yes PreAnesthesia Questionnaire - Past Health History Medical/Surgical History: Denies Medical/Surgical History HEENT History: Reports: Impaired Vision, Other (See Below) Other HEENT History: patient wears glasses Cardiovascular History: Reports: Hypertension, Other (See Below) Other Cardiovascular History: PVC; tachycardia Respiratory History: Reports: None Gastrointestinal History: Reports: Chronic Constipation, GERD Genitourinary History: Reports: None SOLE CONDITIONER History: Reports: : 2 Para: 1 LMP (Approximate): Musculoskeletal History: Reports: None Neurological History: Reports: Migraines Psychiatric History: Reports: Anxiety, Depression, Emotional Problems Endocrine/Metabolic History: Reports: None Hematologic History: Reports: Anemia Immunologic History: Reports: None Oncologic (Cancer) History: Reports: None Dermatologic History: Reports: None - Infectious Disease History Infectious Disease History: Reports: None - Past Surgical History HEENT Surgical History: Reports: None Cardiovascular Surgical History: Reports: None - SUBSTANCE USE Smoking Status *Q: Former Smoker Tobacco Use Within Last Twelve Months: Cigarettes Recreational Drug Use History: No - HOME MEDS Home Medications: Home Meds . [No Known Home Meds] 03/07/18 [History] - CURRENT (IN HOUSE) MEDS Current Meds: Current Medications Acetaminophen (Tylenol Extra Strength) 1,000 mg PO Q6H PRN PRN Reason: Pain Carboprost Tromethamine (Hemabate Ds) 250 mcg IM ASDIRECTED PRN PRN Reason: Post Hemorrhage Lactated Ringer's (Ringers, Lactated) 1,000 mls @ 150 mls/hr IV ASDIRECTED DANNI Last Admin: 03/07/18 06:32 Dose: 150 mls/hr Oxytocin/Sodium Chloride (Oxytocin 30 Unit/500 Ml-Ns) 30 unit in 500 mls @ 999 mls/hr IV TITRATE DANNI Oxytocin/Sodium Chloride (Oxytocin 30 Unit/500 Ml-Ns) 30 unit in 500 mls @ 2 mls/hr IV TITRATE DANNI; Protocol Last Titration: 03/07/18 12:22 Dose: 14 munits/min, 14 mls/hr Tranexamic Acid 1,000 mg/ (Sodium Chloride) 110 mls @ 660 mls/hr IV ONETIME PRN PRN Reason: Bleeding Lidocaine HCl (Xylocaine 1%) 50 ml INJECT ONETIME PRN PRN Reason: Laceration repair Methylergonovine Maleate (Methergine) 0.2 mg IM ASDIRECTED PRN PRN Reason: Post Hemorrhage Misoprostol (Cytotec) 200 mcg PO ONETIME PRN PRN Reason: Post Hemorrhage Nalbuphine HCl (Nubain) 10 mg IVPUSH Q1H PRN PRN Reason: Pain (severe 7-10) Sodium Chloride (Saline Flush) 10 ml FLUSH ASDIRECTED PRN PRN Reason: Keep Vein Open Sodium Chloride (Saline Flush) 2.5 ml FLUSH ASDIRECTED PRN PRN Reason: Keep Vein Open Sterile Water (Sterile Water For Irrigation) 1,000 ml IRR ASDIRECTED PRN PRN Reason: delivery Terbutaline Sulfate (Brethine) 0.25 mg SUBCUT ASDIRECTED PRN PRN Reason: Tacysystole
[2018-03-07] MEDS ORDERED: Ropivacaine HCl/PF 100 ML ONE (15:20)
[2018-03-07] MEDS ORDERED: Bupivacaine 0.5% 10 ML SDV ONE (15:20)
[2018-03-07] MEDS ORDERED: Bisacodyl 10 MG Supp RECTAL PRN (17:20)
[2018-03-07] MEDS ORDERED: Docusate Sodium 100 MG Cap PO PRN (17:20)
[2018-03-07] MEDS ORDERED: Ibuprofen 400 MG Tab PO PRN (17:20)
[2018-03-07] MEDS ORDERED: Lanolin 100% Cream 7 GM Tube TOP PRN (17:20)
[2018-03-07] MEDS ORDERED: oxyCODONE 5 MG Tab PO PRN (17:20)
[2018-03-07] MEDS ORDERED: Benzocaine/Menthol 20%-0.5% Spray 78 GM Cannister TOP PRN (17:20)
[2018-03-07] MEDS ORDERED: Witch Hazel Medicated Pads 40/Jar TOP PRN (17:20)
--- NOTE | 2018-03-07 17:31 | PCM.DEL ---
L & D Note - General Info Date of Service: 03/07/18 Mother's Due Date: 03/15/18 - Delivery Note Labor: Induced by Oxytocin Delivery Outcome: Livebirth Delivery Mode: Spontaneous Presentation: Vertex Nuchal Cord: None Anesthesia Type: Epidural Amniotic Fluid Description: Clear Episiotomy Type: None Laceration: None Placenta: Intact, Spontaneous Cord: 3 Vessels Estimated Blood Loss: 200 Resuscitation Needed: No Score 1 min: 9 Score 5 min: 9 Second Stage Interventions: Reports: Pushing, Pulls Own Legs Back Induction Criteria - Soto Score Soto Score Dilation: 1-2 cm Soto Score Effacement: 40-50% Soto Score 's Station: -2 Soto Score Consistency: Soft Soto Score Cervix Position: Posterior Soto Score Total: 5 - Induction Gestational Age >/= 39 wks: Yes Medical Indication: discomforts of Estimated Pelvis: Reports: Adequate Reassuring Monitoring Strip: Yes Absence of Tachy Systole: Yes - General Info Date of Service: 03/07/18 Admission Dx/Problem (Free Text): Patient Status Order with Admit Dx/Problem 03/07/18 05:34 Patient Status [ADT] Routine Admission Diagnosis/Problem Admission Diagnosis/Problem 03/07/18 08:54 22yo P1001, EDC 03/15/2018 38 6/7wks, O+, RI, GBS neg. IOL for term/ Increased discomforts of . Functional Status: Reports: Pain Controlled - Review of Systems General: Reports: No Symptoms HEENT: Reports: No Symptoms Pulmonary: Reports: No Symptoms Cardiovascular: Reports: No Symptoms Gastrointestinal: Reports: No Symptoms Genitourinary: Reports: No Symptoms Musculoskeletal: Reports: No Symptoms Skin: Reports: No Symptoms Neurological: Reports: No Symptoms Psychiatric: Reports: No Symptoms - Patient Data Weight - Most Recent: 69.4 kg Lab Results Last 24 Hours: Laboratory Results - last 24 hr 03/07/18 03/07/18 Range/Units 06:16 06:16 WBC 6.42 (4.0-11.0) K/uL RBC 3.60 L (4.30-5.90) M/uL Hgb 9.1 L (12.0-16.0) g/dL Hct 28.4 L (36.0-46.0) % MCV 78.9 L (80.0-98.0) fL MCH 25.3 L (27.0-32.0) pg MCHC 32.0 (31.0-37.0) g/dL RDW Std Deviation 38.6 (28.0-62.0) fl RDW Coeff of Sd 14 (11.0-15.0) % Plt Count 178 (150-400) K/uL MPV 9.30 (7.40-12.00) fL Nucleated RBC % 0.0 /100WBC Nucleated RBCs # 0 K/uL Blood Type O POSITIVE Antibody Screen NEGATIVE Crossmatch See Detail Med Orders - Current: Current Medications Acetaminophen (Tylenol Extra Strength) 500 mg PO Q4H PRN PRN Reason: Pain Acetaminophen (Tylenol Extra Strength) 1,000 mg PO Q4H PRN PRN Reason: Pain Benzocaine/Menthol (Dermoplast Pain Relief 20%-0.5% [place]) 78 gm TOP ASDIRECTED PRN PRN Reason: Perineal Comfort Measure Bisacodyl (Dulcolax) 10 mg RECTAL ONETIME PRN PRN Reason: Constipation Docusate Sodium (Colace) 100 mg PO BID PRN PRN Reason: Constipation Emollient Ointment (Lansinoh Hpa) 0 gm TOP ASDIRECTED PRN PRN Reason: Sore Nipples Ibuprofen (Motrin) 400 mg PO Q4H PRN PRN Reason: Pain Ibuprofen (Motrin) 800 mg PO Q6H PRN PRN Reason: Pain Oxycodone HCl (Oxycodone) 5 mg PO Q2H PRN PRN Reason: Pain Witch Niki (Tucks) 1 pad TOP ASDIRECTED PRN PRN Reason: comfort care Discontinued Medications Acetaminophen (Tylenol Extra Strength) 1,000 mg PO Q6H PRN PRN Reason: Pain Bupivacaine HCl (Sensorcaine-Mpf 0.5%) Confirm Administered Dose 10 ml .ROUTE .STK-MED ONE Stop: 03/07/18 15:21 Carboprost Tromethamine (Hemabate Ds) 250 mcg IM ASDIRECTED PRN PRN Reason: Post Hemorrhage Lactated Ringer's (Ringers, Lactated) 1,000 mls @ 150 mls/hr IV ASDIRECTED DANNI Last Admin: 03/07/18 15:51 Dose: 500 mls/hr Oxytocin/Sodium Chloride (Oxytocin 30 Unit/500 Ml-Ns) 30 unit in 500 mls @ 999 mls/hr IV TITRATE DANNI Oxytocin/Sodium Chloride (Oxytocin 30 Unit/500 Ml-Ns) 30 unit in 500 mls @ 2 mls/hr IV TITRATE DANNI; Protocol Last Titration: 03/07/18 16:20 Dose: 18 munits/min, 18 mls/hr Tranexamic Acid 1,000 mg/ (Sodium Chloride) 110 mls @ 660 mls/hr IV ONETIME PRN PRN Reason: Bleeding Fentanyl/Bupivacaine HCl (Lrdkalne-Sylal-To 2 Mcg/Ml-0.125%) Confirm Administered Dose 100 mls @ as directed EP .STK-MED ONE Stop: 03/07/18 13:13 Ropivacaine (Naropin 0.2%) Confirm Administered Dose 100 mls @ as directed .ROUTE .STK-MED ONE Stop: 03/07/18 15:21 Lidocaine HCl (Xylocaine 1%) 50 ml INJECT ONETIME PRN PRN Reason: Laceration repair Methylergonovine Maleate (Methergine) 0.2 mg IM ASDIRECTED PRN PRN Reason: Post Hemorrhage Misoprostol (Cytotec) 200 mcg PO ONETIME PRN PRN Reason: Post Hemorrhage Nalbuphine HCl (Nubain) 10 mg IVPUSH Q1H PRN PRN Reason: Pain (severe 7-10) Sodium Chloride (Saline Flush) 10 ml FLUSH ASDIRECTED PRN PRN Reason: Keep Vein Open Sodium Chloride (Saline Flush) 2.5 ml FLUSH ASDIRECTED PRN PRN Reason: Keep Vein Open Sterile Water (Sterile Water For Irrigation) 1,000 ml IRR ASDIRECTED PRN PRN Reason: delivery Terbutaline Sulfate (Brethine) 0.25 mg SUBCUT ASDIRECTED PRN PRN Reason: Tacysystole - Exam General: Alert, Oriented, Cooperative, No Acute Distress Lungs: Normal Respiratory Effort GI/Abdominal Exam: Soft, Non-Tender (Female) Exam: Normal External Exam, Normal Bimanual Exam, Vaginal Bleeding Back Exam: Normal Inspection, Full Range of Motion Extremities: Normal Inspection, Normal Range of Motion, Non-Tender, No Pedal Edema, Normal Capillary Refill Skin: Warm, Dry, Intact Wound/Incisions: Healing Well Neurological: No New Focal Deficit, Normal Speech, Normal Tone Psy/Mental Status: Alert, Normal Affect, Normal Mood - Problem List & Annotations (1) Supervision of normal IUP (intrauterine ) in multigravida SNOMED Code(s): 002818112, 613736875, 682074455 Code(s): Z34.80 - ENCOUNTER FOR SUPRVSN OF NORMAL , UNSP TRIMESTER Status: Acute Current Visit: Yes Qualifiers: Trimester: third trimester Qualified Code(s): Z34.83 - Encounter for supervision of other normal , third trimester (2) (normal spontaneous vaginal delivery) SNOMED Code(s): 98220879 Code(s): O80 - ENCOUNTER FOR FULL-TERM UNCOMPLICATED DELIVERY Status: Acute Current Visit: Yes - Problem List Review Problem List Initiated/Reviewed/Updated: Yes - My Orders Last 24 Hours: My Active Orders 03/07/18 05:34 Bedrest Bathroom Privileges [RC] ASDIRECTED Heart Tones [RC] CONTINUOUS Non Stress Test [RC] PER UNIT ROUTINE May Shower [RC] ASDIRECTED Oxygen Therapy [RC] ASDIRECTED Up ad Fiorella [RC] ASDIRECTED Vaginal Exam [RC] PRN Vaginal Exam [RC] PRN Vital Signs [RC] PER UNIT ROUTINE Vital Signs [RC] PER UNIT ROUTINE 03/07/18 06:16 TYPE AND SCREEN [BBK] Routine 03/07/18 17:20 Acetaminophen [Tylenol Extra Strength] 1,000 mg PO Q4H PRN Acetaminophen [Tylenol Extra Strength] 500 mg PO Q4H PRN Benzocaine/Menthol [Dermoplast Pain Relief 20%-0.5% [place]] 78 gm TOP ASDIRECTED PRN Bisacodyl [Dulcolax] 10 mg RECTAL ONETIME PRN Docusate Sodium [Colace] 100 mg PO BID PRN Ibuprofen [Motrin] 400 mg PO Q4H PRN Ibuprofen [Motrin] 800 mg PO Q6H PRN Lanolin [Lansinoh HPA] See Dose Instructions TOP ASDIRECTED PRN Witch Niki [Tucks] 1 pad TOP ASDIRECTED PRN oxyCODONE 5 mg PO Q2H PRN Resuscitation Status Routine 03/07/18 17:21 May Shower [RC] ASDIRECTED Up ad Fiorella [RC] ASDIRECTED Vital Signs [RC] PER UNIT ROUTINE Assess Lochia [WOMSER] Per Unit Routine Assess Uterine Involution [WOMSER] Per Unit Routine Peripheral IV Discontinue [OM.PC] Routine 03/07/18 17:23 Patient Status [ADT] Routine 03/07/18 Dinner Regular Diet [DIET] - Plan Plan:: IOL A: 22yo P1001, EDC 03/15/2018 38 6/7wks, O+, RI, GBS neg. IOL for term /Increased discomforts of . P: admit, pitocin, pain meds.epidural prn, anticipate , Dr Guevara updated Delivery A: of viable female, pink and spont crying, APGARS 9/9, Wt: 7lb 7oz, Intact perineum, EBL 100mg, Mother and baby bonding well with recovery. Stable condition P: Routine pp plan of care
[2018-03-07] MEDS: Ibuprofen 800 MG Tab PO PRN (22:37)
[2018-03-08] MEDS: Ibuprofen 800 MG Tab PO PRN ×2 (09:20→18:49)
--- NOTE | 2018-03-08 09:35 | PCM.DCSUM1 ---
Discharge Summary - Hospital Course Free Text/Narrative:: Discharge home with infant. Follow up in 6 weeks for post or sooner if needed. Diagnosis: Stroke: No - Discharge Data Discharge Date: 03/08/18 Discharge Disposition: Home, Self-Care 01 Condition: Good - Discharge Diagnosis/Problem(s) (1) Supervision of normal IUP (intrauterine ) in multigravida SNOMED Code(s): 338913653, 435422148, 253730631 ICD Code: Z34.80 - ENCOUNTER FOR SUPRVSN OF NORMAL , UNSP TRIMESTER Status: Acute Current Visit: Yes Qualifiers: Trimester: third trimester Qualified Code(s): Z34.83 - Encounter for supervision of other normal , third trimester (2) (normal spontaneous vaginal delivery) SNOMED Code(s): 07336668 ICD Code: O80 - ENCOUNTER FOR FULL-TERM UNCOMPLICATED DELIVERY Status: Acute Current Visit: Yes - Patient Instructions Diet: Usual Diet as Tolerated Activity: As Tolerated, No Strenuous Activities, Rest and Relax Today Driving: May Drive Today Showering/Bathing: May Shower Notify Provider of: Fever, Increased Pain, Swelling and Redness, Nausea and/or Vomiting Other/Special Instructions: Discharge home with infant. Follow up in 6 weeks for post or sooner if needed. - Discharge Plan *PRESCRIPTION DRUG MONITORING PROGRAM REVIEWED*: Not Applicable *COPY OF PRESCRIPTION DRUG MONITORING REPORT IN PATIENT OBDULIO: Not Applicable Home Medications: Home Meds . [No Known Home Meds] 03/07/18 [History] - General Info Date of Service: 03/08/18 Admission Dx/Problem (Free Text: Patient Status Order with Admit Dx/Problem 03/07/18 05:34 Patient Status [ADT] Routine Admission Diagnosis/Problem Admission Diagnosis/Problem 03/07/18 08:54 22yo P1001, EDC 03/15/2018 38 6/7wks, O+, RI, GBS neg. IOL for term/ Increased discomforts of . Functional Status: Reports: Pain Controlled, Tolerating Diet, Ambulating, Urinating - Review of Systems General: Reports: No Symptoms HEENT: Reports: No Symptoms Pulmonary: Reports: No Symptoms Cardiovascular: Reports: No Symptoms Gastrointestinal: Reports: No Symptoms Genitourinary: Reports: No Symptoms Musculoskeletal: Reports: No Symptoms Skin: Reports: No Symptoms Neurological: Reports: No Symptoms Psychiatric: Reports: No Symptoms - Patient Data Vitals - Most Recent: Last Vital Signs Temp 36.6 C 03/08/18 05:17 Pulse 62 03/08/18 05:17 Resp 15 03/08/18 05:17 BP 129/75 03/08/18 05:17 Pulse Ox 100 03/08/18 05:17 Weight - Most Recent: 69.4 kg Lab Results - Last 24 hrs: Laboratory Results - last 24 hr 03/07/18 03/08/18 Range/Units 06:16 05:42 Hgb 8.0 L (12.0-16.0) g/dL Hct 25.2 L (36.0-46.0) % Blood Type O POSITIVE Antibody Screen NEGATIVE Crossmatch See Detail Med Orders - Current: Current Medications Acetaminophen (Tylenol Extra Strength) 500 mg PO Q4H PRN PRN Reason: Pain Acetaminophen (Tylenol Extra Strength) 1,000 mg PO Q4H PRN PRN Reason: Pain Benzocaine/Menthol (Dermoplast Pain Relief 20%-0.5% [place]) 78 gm TOP ASDIRECTED PRN PRN Reason: Perineal Comfort Measure Bisacodyl (Dulcolax) 10 mg RECTAL ONETIME PRN PRN Reason: Constipation Docusate Sodium (Colace) 100 mg PO BID PRN PRN Reason: Constipation Emollient Ointment (Lansinoh Hpa) 0 gm TOP ASDIRECTED PRN PRN Reason: Sore Nipples Last Admin: 03/08/18 04:21 Dose: 1 gm Ibuprofen (Motrin) 400 mg PO Q4H PRN PRN Reason: Pain Ibuprofen (Motrin) 800 mg PO Q6H PRN PRN Reason: Pain Last Admin: 03/08/18 09:20 Dose: 800 mg Oxycodone HCl (Oxycodone) 5 mg PO Q2H PRN PRN Reason: Pain Witch Niki (Tucks) 1 pad TOP ASDIRECTED PRN PRN Reason: comfort care Discontinued Medications Acetaminophen (Tylenol Extra Strength) 1,000 mg PO Q6H PRN PRN Reason: Pain Bupivacaine HCl (Sensorcaine-Mpf 0.5%) Confirm Administered Dose 10 ml .ROUTE .STK-MED ONE Stop: 03/07/18 15:21 Carboprost Tromethamine (Hemabate Ds) 250 mcg IM ASDIRECTED PRN PRN Reason: Post Hemorrhage Lactated Ringer's (Ringers, Lactated) 1,000 mls @ 150 mls/hr IV ASDIRECTED DANNI Last Admin: 03/07/18 15:51 Dose: 500 mls/hr Oxytocin/Sodium Chloride (Oxytocin 30 Unit/500 Ml-Ns) 30 unit in 500 mls @ 999 mls/hr IV TITRATE DANNI Oxytocin/Sodium Chloride (Oxytocin 30 Unit/500 Ml-Ns) 30 unit in 500 mls @ 2 mls/hr IV TITRATE DANNI; Protocol Last Titration: 03/07/18 17:08 Dose: 500 munits/min, 500 mls/hr Tranexamic Acid 1,000 mg/ (Sodium Chloride) 110 mls @ 660 mls/hr IV ONETIME PRN PRN Reason: Bleeding Fentanyl/Bupivacaine HCl (Gaaqemlq-Iqvku-Rz 2 Mcg/Ml-0.125%) Confirm Administered Dose 100 mls @ as directed EP .STK-MED ONE Stop: 03/07/18 13:13 Ropivacaine (Naropin 0.2%) Confirm Administered Dose 100 mls @ as directed .ROUTE .STK-MED ONE Stop: 03/07/18 15:21 Lidocaine HCl (Xylocaine 1%) 50 ml INJECT ONETIME PRN PRN Reason: Laceration repair Methylergonovine Maleate (Methergine) 0.2 mg IM ASDIRECTED PRN PRN Reason: Post Hemorrhage Misoprostol (Cytotec) 200 mcg PO ONETIME PRN PRN Reason: Post Hemorrhage Nalbuphine HCl (Nubain) 10 mg IVPUSH Q1H PRN PRN Reason: Pain (severe 7-10) Sodium Chloride (Saline Flush) 10 ml FLUSH ASDIRECTED PRN PRN Reason: Keep Vein Open Sodium Chloride (Saline Flush) 2.5 ml FLUSH ASDIRECTED PRN PRN Reason: Keep Vein Open Sterile Water (Sterile Water For Irrigation) 1,000 ml IRR ASDIRECTED PRN PRN Reason: delivery Terbutaline Sulfate (Brethine) 0.25 mg SUBCUT ASDIRECTED PRN PRN Reason: Tacysystole - Exam General: Reports: Alert, Oriented, Cooperative, No Acute Distress Lungs: Reports: Clear to Auscultation, Normal Respiratory Effort Cardiovascular: Reports: Regular Rate, Regular Rhythm, No Murmurs GI/Abdominal Exam: Soft, Non-Tender (Female) Exam: Vaginal Bleeding Rectal (Female) Exam: Deferred Back Exam: Reports: Normal Inspection, Full Range of Motion Extremities: Normal Inspection, Normal Range of Motion, Non-Tender, No Pedal Edema, Normal Capillary Refill Skin: Reports: Warm, Dry, Intact Wound/Incisions: Reports: Healing Well Neurological: Reports: No New Focal Deficit Psy/Mental Status: Reports: Alert, Normal Affect, Normal Mood
[2018-03-08 16:42] VITALS: BP 114/75
== END 2018-03-08 21:20 | disposition home or self-care (01) | DRG 560 ==
LOC: MW.OBCHECK 05:06 → MW.OB 05:09 → MW.OBCHECK 05:34 → MW.OB 05:34 → OBSVTOIN 17:06 → MW.OB 21:05
PROVIDERS: ADMIT Obstetrics & Gynecology; ATTEND Obstetrics & Gynecology
PROC: 10E0XZZ Delivery of Products of Conception, External Approach (ICD-10-PCS; principal; 2018-03-07)
PROC: 3E033VJ Introduction of Other Hormone into Peripheral Vein, Percutaneous Approach (ICD-10-PCS; 2018-03-07)
PROC: 00HU33Z Insertion of Infusion Device into Spinal Canal, Percutaneous Approach (ICD-10-PCS; 2018-03-07)
DX: O80 Encounter for full-term uncomplicated delivery (principal); Z3A.38 38 weeks gestation of pregnancy; Z37.0 Single live birth
CPT/HCPCS: 01967-QZ; 36415; 51702; 59025; 59409; 85014; 85018; 85027; A9270-GY; J2590; J2795; J3490; J7120

== ENCOUNTER 2018-08-27 01:13 | Emergency (ER) | payer BC, MEDICAID ==
--- NOTE | 2018-08-27 01:56 | EDM.PDOC ---
ED HPI GENERAL MEDICAL PROBLEM - General Chief Complaint: Lower Extremity Injury/Pain Stated Complaint: PAIN BEHIND RIGHT KNEE, HEAD IS "NUMB" Time Seen by Provider: 08/27/18 01:50 Source of Information: Reports: Patient - History of Present Illness INITIAL COMMENTS - FREE TEXT/NARRATIVE: HISTORY AND PHYSICAL: History of present illness: [Patient with sinus infection and bilateral otitis media presents with 2 complaints, she has been on Augmentin day 8 of 10 complains as if she feels as if her head is under water decreased hearing bother some years Secondary complaint of pain behind the knee I can reproduce pain with palpation over tendon insertion of semimbranosus muscle and can reproduce pain all along the muscle consistent with muscle spasm Denies any injury or trauma no fever nausea vomiting chills sweats no chest pain shortness breath headache dizziness palpitation no bowel or urine symptoms Review of systems: As per history of present illness and below otherwise all systems reviewed and negative. Past medical history: As per history of present illness and as reviewed below otherwise noncontributory. Surgical history: As per history of present illness and as reviewed below otherwise noncontributory. Social history: No reported history of drug or alcohol abuse. Family history: As per history of present illness and as reviewed below otherwise noncontributory. Physical exam: HEENT: Atraumatic, normocephalic, pupils reactive, negative for conjunctival pallor or scleral icterus, mucous membranes moist, throat clear, neck supple, nontender, trachea midline. Lungs: Clear to auscultation, breath sounds equal bilaterally, chest nontender. Heart: S1S2, regular, negative for clicks, rubs, or JVD. Abdomen: Soft, nondistended, nontender. Negative for masses or hepatosplenomegaly. Negative for costovertebral tenderness. Pelvis: Stable nontender. Genitourinary: Deferred. Rectal: Deferred. Extremities: Atraumatic, negative for cords or calf pain. Neurovascular unremarkable. Neuro: Awake, alert, oriented. Cranial nerves II through XII unremarkable. Cerebellum unremarkable. Motor and sensory unremarkable throughout. Exam nonfocal. Diagnostics: [Clinical ] Therapeutics: [ rest ice ibuprofen ] Impression: [ muscle spasm Bilateral serous effusion Otitis media has cleared ]strip sinusitis Definitive disposition and diagnosis as appropriate pending reevaluation and review of above. right knee Pain Score (Numeric/FACES): 8 - Related Data Allergies Allergy/AdvReac Type Severity Reaction Status Date / Time ketorolac [From Toradol] Allergy Rash Verified 08/27/18 01:31 Home Meds: Home Meds Amoxicillin/Clavulanate K [Augmentin 875-125 MG] 0 mg PO BID 08/27/18 [History] Past Medical History - Past Health History Medical/Surgical History: Denies Medical/Surgical History HEENT History: Reports: Impaired Vision, Other (See Below) Other HEENT History: patient wears glasses Cardiovascular History: Reports: Hypertension, Other (See Below) Other Cardiovascular History: PVC; tachycardia Respiratory History: Reports: None Gastrointestinal History: Reports: Chronic Constipation, GERD Genitourinary History: Reports: None 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: Musculoskeletal History: Reports: None Neurological History: Reports: Migraines Psychiatric History: Reports: Anxiety, Depression, Emotional Problems Endocrine/Metabolic History: Reports: None Hematologic History: Reports: Anemia Immunologic History: Reports: None Oncologic (Cancer) History: Reports: None Dermatologic History: Reports: None - Infectious Disease History Infectious Disease History: Reports: None - Past Surgical History Head Surgeries/Procedures: Reports: None HEENT Surgical History: Reports: None Cardiovascular Surgical History: Reports: None Social & Family History - Family History Family Medical History: Noncontributory Cardiac: Reports: Aneurysm, High Cholesterol, Hypertension GI: Reports: Cholelithiasis OBGYN: Reports: Endocrine/Metabolic: Reports: Diabetes, type II Oncologic: Reports: Other (See Below) Other Oncologic Family History: hx of cancer in family but does not remember what kind - Tobacco Use Smoking Status *Q: Never Smoker - Caffeine Use Caffeine Use: Reports: None Caffeine Use Comment: 1 cup - Recreational Drug Use Recreational Drug Use: No Review of Systems - Review of Systems Review Of Systems: See Below ED EXAM, GENERAL - Physical Exam Exam: See Below Course - Vital Signs Last Recorded V/S: Last Vital Signs Temp 97 F 08/27/18 01:25 Pulse 68 08/27/18 01:25 Resp 18 08/27/18 01:25 BP 127/91 H 08/27/18 01:25 Pulse Ox 97 08/27/18 01:25 Departure - Departure Time of Disposition: 01:55 Disposition: Home, Self-Care 01 Condition: Good Clinical Impression: Eustachian tube dysfunction, Muscle spasm - Discharge Information Referrals: PCP,None [Primary Care Provider] - Additional Instructions: The following information is given to patients seen in the emergency department who are being discharged to home. This information is to outline your options for follow-up care. We provide all patients seen in our emergency department with a follow-up referral. The need for follow-up, as well as the timing and circumstances, are variable depending upon the specifics of your emergency department visit. If you don't have a primary care physician on staff, we will provide you with a referral. We always advise you to contact your personal physician following an emergency department visit to inform them of the circumstance of the visit and for follow-up with them and/or the need for any referrals to a consulting specialist. The emergency department will also refer you to a specialist when appropriate. This referral assures that you have the opportunity for follow-up care with a specialist. All of these measure are taken in an effort to provide you with optimal care, which includes your follow-up. Under all circumstances we always encourage you to contact your private physician who remains a resource for coordinating your care. When calling for follow-up care, please make the office aware that this follow-up is from your recent emergency room visit. If for any reason you are refused follow-up, please contact the [facility] emergency department at and asked to speak to the emergency department charge nurse.
[2018-08-27 02:30] VITALS: BP 130/78
== END 2018-08-27 02:10 | disposition home or self-care (01) ==
LOC: MW.ED 01:13
DX: H65.93 Unspecified nonsuppurative otitis media, bilateral (principal); H69.93 Unspecified Eustachian tube disorder, bilateral; J32.9 Chronic sinusitis, unspecified; B95.5 Unspecified streptococcus as the cause of diseases classified elsewhere; M62.838 Other muscle spasm; I10 Essential (primary) hypertension; Z88.6 Allergy status to analgesic agent
CPT/HCPCS: 99283

== ENCOUNTER 2019-01-23 19:59 | Emergency (ER) | payer BC, MEDICAID ==
[2019-01-23 20:13] VITALS: BP 128/85
--- NOTE | 2019-01-23 20:43 | EDM.PDOC ---
ED HPI GENERAL MEDICAL PROBLEM - General Chief Complaint: Bite:Animal, Insect Stated Complaint: BUG BITE Time Seen by Provider: 01/23/19 20:21 Source of Information: Reports: Patient History Limitations: Reports: No Limitations - History of Present Illness INITIAL COMMENTS - FREE TEXT/NARRATIVE: HISTORY AND PHYSICAL: History of present illness: Patient is a 23-year-old female presents to the ED today with concern of immediate mosquito bite that occurred earlier today and she is now having a headache since a mosquito bite. Patient denies any health history or any other symptoms or concerns at this time. Patient states she does not have a history of headaches and this is unusual for her. She states she has not taken anything for her symptoms. Patient denies fever, chills, chest pain, shortness of breath, or cough. Denies neck stiff ness, change in vision, syncope, or near syncope. Denies nausea, vomiting, abdominal pain, diarrhea, constipation, or dysuria. Has not noted any blood in urine or stool. Patient has been eating and drinking appropriately. Review of systems: As per history of present illness and below otherwise all systems reviewed and negative. Past medical history: As per history of present illness and as reviewed below otherwise noncontributory. Surgical history: As per history of present illness and as reviewed below otherwise noncontributory. Social history: See social history for further information Family history: As per history of present illness and as reviewed below otherwise noncontributory. Physical exam: General: Patient is alert, oriented, and in no acute distress. Patient sitting comfortably on exam table. HEENT: Atraumatic, normocephalic, pupils equal and reactive bilaterally, negative for conjunctival pallor or scleral icterus, mucous membranes moist, TMs normal bilaterally, throat clear, neck supple, nontender, trachea midline. No drooling or trismus noted. No meningeal signs. No hot potato voice noted. Lungs: Clear to auscultation, breath sounds equal bilaterally, chest nontender. Heart: S1S2, regular rate and rhythm without overt murmur Abdomen: Soft, nondistended, nontender. Negative for masses or hepatosplenomegaly. Negative for costovertebral tenderness. Pelvis: Stable nontender. Genitourinary: Deferred. Rectal: Deferred. Skin: Intact, warm, dry. No lesions or rashes noted. Extremities: Atraumatic, negative for cords or calf pain. Neurovascular unremarkable. Neuro: Awake, alert, oriented. Cranial nerves II through XII unremarkable. Cerebellum unremarkable. Motor and sensory unremarkable throughout. Exam nonfocal. Notes: Discussed the importance for follow-up with a primary care provider. Voices understanding and is agreeable to plan of care. Denies any further questions or concerns at this time. Diagnostics: CBC, CMP, UA (I did offer to test for [place] but patient declines, patient ALSO declines imaging of head) Therapeutics: Patient declines all therapeutics for headache Prescription: None Impression: Headache Medical screening exam Plan: 1. You can alternate ibuprofen and Tylenol as directed for pain and discomfort. 2. Follow-up with her primary care provider as discussed. Return to the ED as needed and as discussed. Definitive disposition and diagnosis as appropriate pending reevaluation and review of above. Headache Pain Score (Numeric/FACES): 8 - Related Data Allergies Allergy/AdvReac Type Severity Reaction Status Date / Time ketorolac [From Toradol] Allergy Rash Verified 01/23/19 20:10 Home Meds: Home Meds Sertraline [Zoloft] 50 mg PO DAILY 01/23/19 [History] Past Medical History - Past Health History Medical/Surgical History: Denies Medical/Surgical History HEENT History: Reports: Impaired Vision, Other (See Below) Other HEENT History: patient wears glasses Cardiovascular History: Reports: Hypertension, Other (See Below) Other Cardiovascular History: PVC; tachycardia Respiratory History: Reports: None Gastrointestinal History: Reports: Chronic Constipation, GERD Genitourinary History: Reports: None 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: Musculoskeletal History: Reports: None Neurological History: Reports: Migraines Psychiatric History: Reports: Anxiety, Depression, Emotional Problems Endocrine/Metabolic History: Reports: None Hematologic History: Reports: Anemia Immunologic History: Reports: None Oncologic (Cancer) History: Reports: None Dermatologic History: Reports: None - Infectious Disease History Infectious Disease History: Reports: None - Past Surgical History Head Surgeries/Procedures: Reports: None HEENT Surgical History: Reports: None Cardiovascular Surgical History: Reports: None Social & Family History - Family History Family Medical History: Noncontributory Cardiac: Reports: Aneurysm, High Cholesterol, Hypertension GI: Reports: Cholelithiasis OBGYN: Reports: Endocrine/Metabolic: Reports: Diabetes, type II Oncologic: Reports: Other (See Below) Other Oncologic Family History: hx of cancer in family but does not remember what kind - Tobacco Use Smoking Status *Q: Never Smoker Second Hand Smoke Exposure: No - Caffeine Use Caffeine Use: Reports: Coffee, Soda Caffeine Use Comment: 1 cup - Recreational Drug Use Recreational Drug Use: No ED ROS GENERAL - Review of Systems Review Of Systems: ROS reveals no pertinent complaints other than HPI. ED EXAM, ANIMAL BITE - Physical Exam Exam: See Below (See dictation) Course - Vital Signs Last Recorded V/S: Last Vital Signs Temp 36.1 C 01/23/19 20:11 Pulse 76 01/23/19 20:11 Resp 16 01/23/19 20:11 BP 128/85 01/23/19 20:11 Pulse Ox 97 01/23/19 20:11 - Orders/Labs/Meds Labs: Laboratory Tests 01/23/19 01/23/19 01/23/19 Range/Units 20:39 20:39 20:55 WBC 5.03 (4.0-11.0) K/uL RBC 4.42 (4.30-5.90) M/uL Hgb 12.6 (12.0-16.0) g/dL Hct 37.2 (36.0-46.0) % MCV 84.2 (80.0-98.0) fL MCH 28.5 (27.0-32.0) pg MCHC 33.9 (31.0-37.0) g/dL RDW Std Deviation 39.4 (28.0-62.0) fl RDW Coeff of Sd 13 (11.0-15.0) % Plt Count 196 (150-400) K/uL MPV 10.00 (7.40-12.00) fL Neut % (Auto) 49.1 (48.0-80.0) % Lymph % (Auto) 43.5 H (16.0-40.0) % [place] % (Auto) 5.6 (0.0-15.0) % Eos % (Auto) 1.6 (0.0-7.0) % Baso % (Auto) 0.2 (0.0-1.5) % Neut # (Auto) 2.5 (1.4-5.7) K/uL Lymph # (Auto) 2.2 (0.6-2.4) K/uL [place] # (Auto) 0.3 (0.0-0.8) K/uL Eos # (Auto) 0.1 (0.0-0.7) K/uL Baso # (Auto) 0.0 (0.0-0.1) K/uL Nucleated RBC % 0.0 /100WBC Nucleated RBCs # 0 K/uL Sodium 142 (136-145) mmol/L Potassium 3.7 (3.5-5.1) mmol/L Chloride 105 (98-107) mmol/L Carbon Dioxide 29.8 (21.0-32.0) mmol/L BUN 20 H (7.0-18.0) mg/dL Creatinine 0.8 (0.6-1.0) mg/dL Est Cr Clr Drug Dosing 79.23 mL/min Estimated GFR (MDRD) > 60.0 ml/min Glucose 86 (74-106) mg/dL Calcium 9.3 (8.5-10.1) mg/dL Total Bilirubin 0.3 (0.2-1.0) mg/dL AST 12 L (15-37) IU/L ALT 17 (14-63) IU/L Alkaline Phosphatase 59 (46-116) U/L Total Protein 6.7 (6.4-8.2) g/dL Albumin 4.0 (3.4-5.0) g/dL Globulin 2.7 (2.6-4.0) g/dL Albumin/Globulin Ratio 1.5 (0.9-1.6) Urine Color YELLOW Urine Appearance CLEAR Urine pH 8.0 (5.0-8.0) Ur Specific [place] 1.020 (1.001-1.035) Urine Protein NEGATIVE (NEGATIVE) mg/dL Urine Glucose (UA) NEGATIVE (NEGATIVE) mg/dL Urine Ketones TRACE H (NEGATIVE) mg/dL Urine Occult Blood NEGATIVE (NEGATIVE) Urine Nitrite NEGATIVE (NEGATIVE) Urine Bilirubin NEGATIVE (NEGATIVE) Urine Urobilinogen 0.2 (<2.0) EU/dL Ur Leukocyte Esterase NEGATIVE (NEGATIVE) Departure - Departure Time of Disposition: 21:18 Disposition: Home, Self-Care 01 Clinical Impression: Encounter for medical screening examination Headache Qualifiers: Headache type: unspecified Headache chronicity pattern: acute headache Intractability: not intractable Qualified Code(s): R51 - Headache - Discharge Information Referrals: PCP,Unknown [Primary Care Provider] - Forms: ED Department Discharge Additional Instructions: The following information is given to patients seen in the emergency department who are being discharged to home. This information is to outline your options for follow-up care. We provide all patients seen in our emergency department with a follow-up referral. The need for follow-up, as well as the timing and circumstances, are variable depending upon the specifics of your emergency department visit. If you don't have a primary care physician on staff, we will provide you with a referral. We always advise you to contact your personal physician following an emergency department visit to inform them of the circumstance of the visit and for follow-up with them and/or the need for any referrals to a consulting specialist. The emergency department will also refer you to a specialist when appropriate. This referral assures that you have the opportunity for follow-up care with a specialist. All of these measure are taken in an effort to provide you with optimal care, which includes your follow-up. Under all circumstances we always encourage you to contact your private physician who remains a resource for coordinating your care. When calling for follow-up care, please make the office aware that this follow-up is from your recent emergency room visit. If for any reason you are refused follow-up, please contact the [facility] Emergency Department at and asked to speak to the emergency department charge nurse. [facility] [address] [place] [id number] [address] [id number] 1. You can alternate ibuprofen and Tylenol as directed for pain and discomfort. 2. Follow-up with her primary care provider as discussed. Return to the ED as needed and as discussed.
[2019-01-23 21:06] LABS: CHLORIDE,CL 105 mmol/L (98-107); SODIUM,NA 142 mmol/L (136-145)
== END 2019-01-23 21:28 | disposition home or self-care (01) ==
LOC: MW.ED 19:59
DX: R51 Headache (principal); I10 Essential (primary) hypertension; K21.9 Gastro-esophageal reflux disease without esophagitis; F41.9 Anxiety disorder, unspecified; F32.9 Major depressive disorder, single episode, unspecified; Z88.6 Allergy status to analgesic agent; Z79.899 Other long term (current) drug therapy
CPT/HCPCS: 36415; 80053; 81003; 85025; 99282

== ENCOUNTER 2019-07-16 19:14 | Emergency (ER) | payer BC ==
--- NOTE | 2019-07-16 19:51 | EDM.PDOC ---
ED HPI GENERAL MEDICAL PROBLEM - General Chief Complaint: Head Injury Stated Complaint: FELL ON ICE Time Seen by Provider: 07/16/19 19:44 Source of Information: Reports: Patient History Limitations: Reports: No Limitations - History of Present Illness INITIAL COMMENTS - FREE TEXT/NARRATIVE: HISTORY AND PHYSICAL: History of present illness: Patient is a 24-year-old female who presents to the ED today with concern of head injury that occurred approximately 1 hour prior to arrival to the ED. Patient states she was in the parking lot of her apartment and when she was walking inside she slipped on the ice fell back and hit her head. Patient states she is not sure if she lost consciousness. States she has not had any episodes of vomiting and other than the area where she hit her head is not having any pain or discomfort. Patient denies any other symptoms or concerns. Patient state she is up to date on tetanus. Patient denies fever, chills, chest pain, shortness of breath, or cough. Denies headache, neck stiff ness, change in vision, syncope, or near syncope. Denies nausea, vomiting, abdominal pain, diarrhea, constipation, or dysuria. Has not noted any blood in urine or stool. Patient has been eating and drinking appropriately. Review of systems: As per history of present illness and below otherwise all systems reviewed and negative. Past medical history: As per history of present illness and as reviewed below otherwise noncontributory. Surgical history: As per history of present illness and as reviewed below otherwise noncontributory. Social history: See social history for further information Family history: As per history of present illness and as reviewed below otherwise noncontributory. Physical exam: General: Patient is alert, oriented, and in no acute distress. Patient sitting comfortably on exam table. HEENT: Superficial abrasion to the right forehead without bleeding. Otherwise, Atraumatic, normocephalic, pupils equal and reactive bilaterally, negative for conjunctival pallor or scleral icterus, mucous membranes moist, TMs normal bilaterally, throat clear, neck supple, nontender, trachea midline. No drooling or trismus noted. No meningeal signs. No hot potato voice noted. Lungs: Clear to auscultation, breath sounds equal bilaterally, chest nontender. Heart: S1S2, regular rate and rhythm without overt murmur Abdomen: Soft, nondistended, nontender. Negative for masses or hepatosplenomegaly. Negative for costovertebral tenderness. Pelvis: Stable nontender. Genitourinary: Deferred. Rectal: Deferred. Skin: Intact, warm, dry. No lesions or rashes noted. Extremities: Atraumatic, negative for cords or calf pain. Neurovascular unremarkable. Neuro: Awake, alert, oriented. Cranial nerves II through XII unremarkable. Cerebellum unremarkable. Motor and sensory unremarkable throughout. Exam nonfocal. Notes: Discussed importance for follow-up with a primary care provider. Voices understanding and is agreeable to plan of care. Denies any further questions or concerns at this time. Diagnostics: UA, uhcg, head CT Therapeutics: None Prescription: None Impression: Head injury Plan: 1. Tylenol and/or Ibuprofen as directed for pain management or discomfort. 2. Follow up with the primary care provider as discussed. Return to the ED as needed and as discussed. Definitive disposition and diagnosis as appropriate pending reevaluation and review of above. Head Pain Score (Numeric/FACES): 8 - Related Data Allergies Allergy/AdvReac Type Severity Reaction Status Date / Time ketorolac [From Toradol] Allergy Rash Verified 07/16/19 19:34 Home Meds: Home Meds Sertraline [Zoloft] 50 mg PO DAILY 01/23/19 [History] Past Medical History - Past Health History Medical/Surgical History: Denies Medical/Surgical History HEENT History: Reports: Impaired Vision, Other (See Below) Other HEENT History: patient wears glasses Cardiovascular History: Reports: Hypertension, Other (See Below) Other Cardiovascular History: PVC; tachycardia Respiratory History: Reports: None Gastrointestinal History: Reports: Chronic Constipation, GERD Genitourinary History: Reports: None 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: Musculoskeletal History: Reports: None Neurological History: Reports: Migraines Psychiatric History: Reports: Anxiety, Depression, Emotional Problems Endocrine/Metabolic History: Reports: None Hematologic History: Reports: Anemia Immunologic History: Reports: None Oncologic (Cancer) History: Reports: None Dermatologic History: Reports: None - Infectious Disease History Infectious Disease History: Reports: None - Past Surgical History Head Surgeries/Procedures: Reports: None HEENT Surgical History: Reports: None Cardiovascular Surgical History: Reports: None Social & Family History - Family History Family Medical History: Noncontributory Cardiac: Reports: Aneurysm, High Cholesterol, Hypertension GI: Reports: Cholelithiasis OBGYN: Reports: Endocrine/Metabolic: Reports: Diabetes, type II Oncologic: Reports: Other (See Below) Other Oncologic Family History: hx of cancer in family but does not remember what kind - Tobacco Use Smoking Status *Q: Never Smoker - Caffeine Use Caffeine Use: Reports: None Caffeine Use Comment: 1 cup - Recreational Drug Use Recreational Drug Use: No ED ROS GENERAL - Review of Systems Review Of Systems: Comprehensive ROS is negative, except as noted in HPI. ED EXAM, HEAD INJURY - Physical Exam Exam: See Below (see dictation) Course - Vital Signs Last Recorded V/S: Last Vital Signs Temp 97.5 F 07/16/19 19:34 Pulse 74 07/16/19 19:34 Resp 16 07/16/19 19:34 BP 124/87 07/16/19 19:34 Pulse Ox 100 07/16/19 19:34 - Orders/Labs/Meds Labs: Laboratory Tests 07/16/19 07/16/19 Range/Units 19:45 19:45 Urine Color YELLOW Urine Appearance SLT CLOUDY Urine pH 8.5 H (5.0-8.0) Ur Specific [place] 1.020 (1.001-1.035) Urine Protein NEGATIVE (NEGATIVE) mg/dL Urine Glucose (UA) NEGATIVE (NEGATIVE) mg/dL Urine Ketones NEGATIVE (NEGATIVE) mg/dL Urine Occult Blood NEGATIVE (NEGATIVE) Urine Nitrite NEGATIVE (NEGATIVE) Urine Bilirubin NEGATIVE (NEGATIVE) Urine Urobilinogen 0.2 (<2.0) EU/dL Ur Leukocyte Esterase NEGATIVE (NEGATIVE) Urine HCG, Qual NEGATIVE (NEGATIVE) Departure - Departure Time of Disposition: 20:35 Disposition: Home, Self-Care 01 Clinical Impression: Head injury Qualifiers: Encounter type: initial encounter Qualified Code(s): S09.90XA - Unspecified injury of head, initial encounter - Discharge Information Referrals: PCP,None [Primary Care Provider] - Forms: ED Department Discharge Additional Instructions: The following information is given to patients seen in the emergency department who are being discharged to home. This information is to outline your options for follow-up care. We provide all patients seen in our emergency department with a follow-up referral. The need for follow-up, as well as the timing and circumstances, are variable depending upon the specifics of your emergency department visit. If you don't have a primary care physician on staff, we will provide you with a referral. We always advise you to contact your personal physician following an emergency department visit to inform them of the circumstance of the visit and for follow-up with them and/or the need for any referrals to a consulting specialist. The emergency department will also refer you to a specialist when appropriate. This referral assures that you have the opportunity for follow-up care with a specialist. All of these measure are taken in an effort to provide you with optimal care, which includes your follow-up. Under all circumstances we always encourage you to contact your private physician who remains a resource for coordinating your care. When calling for follow-up care, please make the office aware that this follow-up is from your recent emergency room visit. If for any reason you are refused follow-up, please contact the [facility] at and asked to speak to the emergency department charge nurse. [facility] [address] [place] [address] [place] [address] 1. Tylenol and/or Ibuprofen as directed for pain management or discomfort. 2. Follow up with the primary care provider as discussed. Return to the ED as needed and as discussed. Sepsis Event Note - Evaluation Sepsis Screening Result: No Definite Risk - Focused Exam Vital Signs: Vital Signs Temp Pulse Resp BP Pulse Ox 07/16/19 19:34 97.5 F 74 16 124/87 100 Date Exam was Performed: 07/16/19 Time Exam was Performed: 20:34
--- NOTE | 2019-07-16 20:32 | CT ---
INDICATION: pain following hitting right side of head Technique: Non-contrast head CT scan. Findings: No abnormal foci of altered attenuation in the brain parenchyma. No midline shift or mass effect. No hydrocephalus. No abnormal extra-axial fluid collections. No abnormalities identified in the visualized portions of the paranasal sinuses, skull, and scalp. Impression: No evidence of acute intracranial abnormalities. Please note that all CT scans at this facility use dose modulation, iterative reconstruction, and/or weight-based dosing when appropriate to reduce radiation dose to as low as reasonably achievable. Dictated by: Bassam Alvarado MD @ 07/16/2019 20:31:41 (Electronically Signed)
[2019-07-16 20:48] VITALS: BP 120/82; PULSE 71
== END 2019-07-16 20:47 | disposition home or self-care (01) ==
LOC: MW.ED 19:14
DX: S00.81XA Abrasion of other part of head, initial encounter (principal); I10 Essential (primary) hypertension; F41.9 Anxiety disorder, unspecified; F32.9 Major depressive disorder, single episode, unspecified; Z79.899 Other long term (current) drug therapy; Z88.6 Allergy status to analgesic agent; W00.0XXA Fall on same level due to ice and snow, initial encounter; Y92.481 Parking lot as the place of occurrence of the external cause
CPT/HCPCS: 70450; 70450-26; 81003; 81025; 99283; 99284-25

== ENCOUNTER 2019-08-05 21:31 | Emergency (ER) | payer BC ==
--- NOTE | 2019-08-05 21:52 | EDM.PDOC ---
ED HPI GENERAL MEDICAL PROBLEM - General Chief Complaint: General Stated Complaint: Palpitations Time Seen by Provider: 08/05/19 21:52 Source of Information: Reports: Patient - History of Present Illness INITIAL COMMENTS - FREE TEXT/NARRATIVE: The patient is a 24-year-old female with a longstanding history of anxiety who presents to the ER for palpitations. She states that she was at home and she started feeling like her heart was racing and she started getting really lightheaded. The patient had problems with retention during so she was attempting to check her blood pressure but the machine was not reading so she was assuming that it was high. No fevers or chills, no drug use, no fevers , no hemoptysis, no syncope but she did feel like she is going to pass out. She is having some burning sensation in her chest. She states that she has had this before and she states that her heart is still racing right now at this very moment. He has a longstanding history of anxiety but she does not take any medications because all of the different medications she has ever tried to make her feel funny so she does not take anything. - Related Data Allergies Allergy/AdvReac Type Severity Reaction Status Date / Time ketorolac [From Toradol] Allergy Rash Verified 08/05/19 21:46 Home Meds: Home Meds . 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: Musculoskeletal History: Reports: None Neurological History: Reports: Migraines Psychiatric History: Reports: Anxiety, Depression, Emotional Problems Endocrine/Metabolic History: Reports: None Hematologic History: Reports: Anemia Immunologic History: Reports: None Oncologic (Cancer) History: Reports: None Dermatologic History: Reports: None - Infectious Disease History Infectious Disease History: Reports: None - Past Surgical History Head Surgeries/Procedures: Reports: None HEENT Surgical History: Reports: None Cardiovascular Surgical History: Reports: None Social & Family History - Family History Family Medical History: Noncontributory Cardiac: Reports: Aneurysm, High Cholesterol, Hypertension GI: Reports: Cholelithiasis OBGYN: Reports: Endocrine/Metabolic: Reports: Diabetes, type II Oncologic: Reports: Other (See Below) Other Oncologic Family History: hx of cancer in family but does not remember what kind - Caffeine Use Caffeine Use: Reports: None Caffeine Use Comment: 1 cup ED ROS GENERAL - Review of Systems Review Of Systems: See Below (Positive for chest discomfort, positive for palpitations, positive for near syncope, negative for fevers, negative hemoptysis, negative shortness of breath, negative for dyspnea exertion, all other Positives and pertinent negatives as per HPI. All other pertinent systems were reviewed and are negative) ED EXAM, GENERAL - Physical Exam Exam: See Below Free Text/Narrative:: Constitutional: Non-toxic appearance, anxious HEENT.: Normocephalic, Atraumatic, PERRL, EOMI, External ears are atraumatic, nares are patent without epistaxis Neck: Normal range of motion, Trachea Midline, No stridor Respiratory.: No respiratory distress, No tachypnea, Lungs Clear to Auscultation bilaterally without wheezes, rales, or rhonchi Cardiovascular.: Regular rate and Rhythm without murmurs, rubs, or gallops, good peripheral perfusion GI: Abdomen soft and non tender, no masses, no rebound, rigidity, or guarding Genital Urinary: Deferred Musculoskeletal: Good range of motion. All 4 extremities present and atraumatic , no edema Back: Full Range of Motion Skin: Warm, Dry, Color is ethnicity appropriate, No acute rash. Lymphatic: No lymphadenopathy noted Neurological: Alert, Awake and oriented x 3, No focal deficits noted appreciate , GCS 15 Psych: Not psychotic, cooperative, anxious Course - Vital Signs Text/Narrative:: When the patient was first talking, I was considering doing a basic work-up for SVT and palpitations - ECG The ECG was read and interpreted by me. There are p waves before every QRS with a ventricular rate of 66. The NC, QRS, and QT intervals are all normal. [place] is normal. ST segments are baseline and the T wave morphology is normal. Final interpretation is a normal Sinus rhythm and a normal ECG. However, even though the patient is currently with a normal heart rate, she states that she feels like it is racing right now at this very moment. I calmed her down. Given the normal ECG, malignant pathology such as myocarditis, endocarditis, pericardial effusion, and especially given the patient's age and complaints acute coronary syndrome are highly unlikely. Furthermore, the patient is PERC negative and without shortness of breath so I do not feel that she needs any type of work-up for pulmonary embolism. The patient states that she is feeling better with reassurance that she states that when she has felt like this before she was given lorazepam 0.5 mg and she was hoping she could get 1 dose without a prescription so this was provided. Last Recorded V/S: Last Vital Signs Temp 36.1 C 08/05/19 21:45 Pulse 88 08/05/19 21:45 Resp 18 08/05/19 21:45 BP 142/97 H 08/05/19 21:45 Pulse Ox 98 08/05/19 21:45 - Orders/Labs/Meds Orders: Active Orders 24 hr Category Date Time Status EKG 12 Lead [EKG Documentation Completion] [RC] STAT Care 08/05/19 21:51 Active LORazepam [Ativan] Med 08/05/19 22:26 Once 0.5 mg PO ONETIME ONE Departure - Departure Time of Disposition: 22:32 Disposition: Home, Self-Care 01 Condition: Good Clinical Impression: Anxiety - Discharge Information *PRESCRIPTION DRUG MONITORING PROGRAM REVIEWED*: Not Applicable *COPY OF PRESCRIPTION DRUG MONITORING REPORT IN PATIENT OBDULIO: Not Applicable Instructions: Living With Anxiety, Generalized Anxiety Disorder, Adult Referrals: PCP,None [Primary Care Provider] - Forms: ED Department Discharge Sepsis Event Note - Evaluation Sepsis Screening Result: No Definite Risk - Focused Exam Vital Signs: Vital Signs Temp Pulse Resp BP Pulse Ox 08/05/19 21:45 36.1 C 88 18 142/97 H 98 Date Exam was Performed: 08/05/19 Time Exam was Performed: 22:27 - My Orders Last 24 Hours: My Active Orders 08/05/19 21:51 EKG 12 Lead [EKG Documentation Completion] [RC] STAT 08/05/19 22:26 LORazepam [Ativan] 0.5 mg PO ONETIME ONE - Assessment/Plan Last 24 Hours: My Active Orders 08/05/19 21:51 EKG 12 Lead [EKG Documentation Completion] [RC] STAT 08/05/19 22:26 LORazepam [Ativan] 0.5 mg PO ONETIME ONE
[2019-08-05] MEDS ORDERED: LORazepam 0.5 MG Tab PO ONE (22:26)
[2019-08-05 22:43] VITALS: BP 110/70; PULSE 66
== END 2019-08-05 22:50 | disposition home or self-care (01) ==
LOC: MW.ED 21:31
DX: F41.9 Anxiety disorder, unspecified (principal); I10 Essential (primary) hypertension; Z88.8 Allergy status to other drugs, medicaments and biological substances
CPT/HCPCS: 93005; 99284; A9270; 99283

== ENCOUNTER 2019-11-25 21:15 | Emergency (ER) | payer BC ==
[2019-11-25] MEDS ORDERED: Sodium Chloride 0.9% 1,000 ML IV ONE (22:16)
[2019-11-25 22:58] LABS: BLOOD UREA NITROGEN,BUN 18 mg/dL (7.0-18.0); CHLORIDE,CL 104 mmol/L (98-107); GLUCOSE RANDOM 80 mg/dL (74-106); POTASSIUM,K 3.6 mmol/L (3.5-5.1); SODIUM,NA 141 mmol/L (136-145)
[2019-11-25] MEDS ORDERED: Cephalexin 500 MG Cap PO ONE (23:31)
--- NOTE | 2019-11-25 23:36 | EDM.PDOC ---
ED HPI GENERAL MEDICAL PROBLEM - General Chief Complaint: Cardiovascular Problem Stated Complaint: FAST HEARTRATE Time Seen by Provider: 11/25/19 22:49 - History of Present Illness INITIAL COMMENTS - FREE TEXT/NARRATIVE: History of present illness: 23-year-old female presenting with palpitations on and off for the last 2 weeks. She describes them as rapid heart beating/pounding sensation that occur occasionally, even while she is at rest without any exertion. Then she starts to feel sweaty and developed some chest discomfort. She has noted over the last 2 days that she has been sweating as well. Has not had any cough or difficulty breathing. No leg pain or swelling. 6 months ago she had a breast reduction and did have some intermittent rapid heartbeats after that time as well as some chest pain and she had a blood work and x-ray that were negative per the patient. On no oral contraceptives. She does report some ongoing breast pain and occasionally she has noticed some purulent appearing discharge from the suture line of the breasts, not from the nipples themselves. She has occasionally had some chest pain for the last 2 weeks as well. Report that she previously did have some palpitations many years ago that felt different than what is she is been having for these last 2 weeks. She had a cardiac work-up including Holter monitor and was told she was having PVCs but that they were not concerned about them. Review of systems: As per history of present illness and below otherwise all systems reviewed and negative. Past medical history: As per history of present illness and as reviewed below otherwise noncontributory. Surgical history: As per history of present illness and as reviewed below otherwise noncontributory. Social history: No reported history of drug or alcohol abuse. Family history: As per history of present illness and as reviewed below otherwise noncontributory. Physical exam: GEN: no acute distress, well appearing HEENT: Atraumatic, normocephalic, mucous membranes moist, Neck: supple, nontender, trachea midline. Lungs: No respiratory distress. Heart: RRR no irregularity Abdomen: Soft, nondistended, nontender. Back: nontender Extremities: Atraumatic. Neurovascularly intact. Neuro: Awake, alert, oriented. Neuro Exam nonfocal. Skin: warm, dry, no lesions Breast exam: Well-healed surgical scars from a breast reduction 6 months ago. Nipple rings in place bilaterally. No active discharge though the wound incision sites are slightly erythematous and the patient reports occasional purulent discharge. She is not able to express any purulent discharge at this time. Diagnostics: Labs, x-ray, EKG Therapeutics: [] MDM: Impression: [] Plan: [] Definitive disposition and diagnosis as appropriate pending reevaluation and review of above. - Related Data Allergies Allergy/AdvReac Type Severity Reaction Status Date / Time ketorolac [From Toradol] Allergy Rash Verified 11/25/19 21:59 Home Meds: Home Meds Escitalopram Oxalate [Lexapro] 20 mg PO DAILY 11/25/19 [History] cephALEXin [Keflex] 1,000 mg PO BID #40 cap 11/25/19 [Rx] Past Medical History - Past Health History Medical/Surgical History: Denies Medical/Surgical History HEENT History: Reports: Impaired Vision, Other (See Below) Other HEENT History: patient wears glasses Cardiovascular History: Reports: Arrhythmia, Hypertension, Other (See Below) Other Cardiovascular History: PVC; tachycardia Respiratory History: Reports: None Gastrointestinal History: Reports: Chronic Constipation, GERD Genitourinary History: Reports: None VP OF MARKETING History: Reports: Musculoskeletal History: Reports: None Neurological History: Reports: Migraines Psychiatric History: Reports: Anxiety, Depression, Emotional Problems Endocrine/Metabolic History: Reports: None Insulin Pump Model and Corporate Communications Associate: N/A Hematologic History: Reports: Anemia Immunologic History: Reports: None Oncologic (Cancer) History: Reports: None Dermatologic History: Reports: None - Infectious Disease History Infectious Disease History: Reports: None - Past Surgical History Head Surgeries/Procedures: Reports: None HEENT Surgical History: Reports: None Cardiovascular Surgical History: Reports: None Female Surgical History: Reports: Breast Reduction Social & Family History - Family History Family Medical History: Noncontributory Cardiac: Reports: Aneurysm, High Cholesterol, Hypertension GI: Reports: Cholelithiasis OBGYN: Reports: Endocrine/Metabolic: Reports: Diabetes, type II Oncologic: Reports: Other (See Below) Other Oncologic Family History: hx of cancer in family but does not remember what kind - Tobacco Use Smoking Status *Q: Current Every Day Smoker Years of Tobacco use: 3 Packs/Tins Daily: 0 - Caffeine Use Caffeine Use: Reports: None Caffeine Use Comment: 1 cup - Recreational Drug Use Recreational Drug Use: No ED ROS GENERAL - Review of Systems Review Of Systems: See Below (See HPI) ED EXAM, GENERAL - Physical Exam Exam: See Below (See HPI) Course - Vital Signs Text/Narrative:: Palpitations/racing heartbeat, occasional chest pain, low risk for coronary chris ry disease, low risk for PE/DVT. Surgery was 6 months ago. Labs unremarkable, including negative d-dimer. EKG sinus rhythm with no ischemia or arrhythmia, rate 81. Chest x-ray negative TSH. Not elevated Plan to refer to cardiology. As the patient has noted some purulent discharge occasionally from the breast incision sites, will prescribe Keflex for possible infection. Last Recorded V/S: Last Vital Signs Temp 98 F 11/25/19 22:52 Pulse 65 11/25/19 22:52 Resp 15 11/25/19 22:52 BP 118/81 11/25/19 22:52 Pulse Ox 98 11/25/19 22:52 - Orders/Labs/Meds Orders: Active Orders 24 hr Category Date Time Status EKG 12 Lead [EKG Documentation Completion] [RC] STAT Care 11/25/19 21:38 Active Saline Lock Insert [OM.PC] Stat Oth 11/25/19 22:16 Ordered Labs: Laboratory Tests 11/25/19 11/25/19 11/25/19 Range/Units 22:03 22:03 22:27 WBC 5.95 (4.0-11.0) K/uL RBC 4.24 L (4.30-5.90) M/uL Hgb 12.3 (12.0-16.0) g/dL Hct 36.7 (36.0-46.0) % MCV 86.6 (80.0-98.0) fL MCH 29.0 (27.0-32.0) pg MCHC 33.5 (31.0-37.0) g/dL RDW Std Deviation 41.0 (28.0-62.0) fl RDW Coeff of Sd 13 (11.0-15.0) % Plt Count 202 (150-400) K/uL MPV 9.30 (7.40-12.00) fL Neut % (Auto) 45.3 L (48.0-80.0) % Lymph % (Auto) 46.4 H (16.0-40.0) % [place] % (Auto) 6.2 (0.0-15.0) % Eos % (Auto) 1.8 (0.0-7.0) % Baso % (Auto) 0.3 (0.0-1.5) % Neut # (Auto) 2.7 (1.4-5.7) K/uL Lymph # (Auto) 2.8 H (0.6-2.4) K/uL [place] # (Auto) 0.4 (0.0-0.8) K/uL Eos # (Auto) 0.1 (0.0-0.7) K/uL Baso # (Auto) 0.0 (0.0-0.1) K/uL Nucleated RBC % 0.0 /100WBC Nucleated RBCs # 0 K/uL D-Dimer, Quantitative (0.0-0.50) mg/L FEU Sodium (136-145) mmol/L Potassium (3.5-5.1) mmol/L Chloride (98-107) mmol/L Carbon Dioxide (21.0-32.0) mmol/L BUN (7.0-18.0) mg/dL Creatinine (0.6-1.0) mg/dL Est Cr Clr Drug Dosing mL/min Estimated GFR (MDRD) ml/min Glucose (74-106) mg/dL Calcium (8.5-10.1) mg/dL Total Bilirubin (0.2-1.0) mg/dL AST (15-37) IU/L ALT (14-63) IU/L Alkaline Phosphatase (46-116) U/L Total Protein (6.4-8.2) g/dL Albumin (3.4-5.0) g/dL Globulin (2.6-4.0) g/dL Albumin/Globulin Ratio (0.9-1.6) TSH 3rd Generation (0.36-3.74) uIU/mL Urine Color YELLOW Urine Appearance CLEAR Urine pH 7.0 (5.0-8.0) Ur Specific [place] 1.020 (1.001-1.035) Urine Protein NEGATIVE (NEGATIVE) mg/dL Urine Glucose (UA) NEGATIVE (NEGATIVE) mg/dL Urine Ketones NEGATIVE (NEGATIVE) mg/dL Urine Occult Blood NEGATIVE (NEGATIVE) Urine Nitrite NEGATIVE (NEGATIVE) Urine Bilirubin NEGATIVE (NEGATIVE) Urine Urobilinogen 0.2 (<2.0) EU/dL Ur Leukocyte Esterase NEGATIVE (NEGATIVE) Urine HCG, Qual NEGATIVE (NEGATIVE) 11/25/19 11/25/19 11/25/19 Range/Units 22:27 22:27 22:27 WBC (4.0-11.0) K/uL RBC (4.30-5.90) M/uL Hgb (12.0-16.0) g/dL Hct (36.0-46.0) % MCV (80.0-98.0) fL MCH (27.0-32.0) pg MCHC (31.0-37.0) g/dL RDW Std Deviation (28.0-62.0) fl RDW Coeff of Sd (11.0-15.0) % Plt Count (150-400) K/uL MPV (7.40-12.00) fL Neut % (Auto) (48.0-80.0) % Lymph % (Auto) (16.0-40.0) % [place] % (Auto) (0.0-15.0) % Eos % (Auto) (0.0-7.0) % Baso % (Auto) (0.0-1.5) % Neut # (Auto) (1.4-5.7) K/uL Lymph # (Auto) (0.6-2.4) K/uL [place] # (Auto) (0.0-0.8) K/uL Eos # (Auto) (0.0-0.7) K/uL Baso # (Auto) (0.0-0.1) K/uL Nucleated RBC % /100WBC Nucleated RBCs # K/uL D-Dimer, Quantitative 0.50 (0.0-0.50) mg/L FEU Sodium 141 (136-145) mmol/L Potassium 3.6 (3.5-5.1) mmol/L Chloride 104 (98-107) mmol/L Carbon Dioxide 29.0 (21.0-32.0) mmol/L BUN 18 (7.0-18.0) mg/dL Creatinine 0.8 (0.6-1.0) mg/dL Est Cr Clr Drug Dosing 78.56 mL/min Estimated GFR (MDRD) > 60.0 ml/min Glucose 80 (74-106) mg/dL Calcium 8.8 (8.5-10.1) mg/dL Total Bilirubin 0.3 (0.2-1.0) mg/dL AST 16 (15-37) IU/L ALT 21 (14-63) IU/L Alkaline Phosphatase 45 L (46-116) U/L Total Protein 6.9 (6.4-8.2) g/dL Albumin 4.2 (3.4-5.0) g/dL Globulin 2.7 (2.6-4.0) g/dL Albumin/Globulin Ratio 1.6 (0.9-1.6) TSH 3rd Generation 2.22 (0.36-3.74) uIU/mL Urine Color Urine Appearance Urine pH (5.0-8.0) Ur Specific [place] (1.001-1.035) Urine Protein (NEGATIVE) mg/dL Urine Glucose (UA) (NEGATIVE) mg/dL Urine Ketones (NEGATIVE) mg/dL Urine Occult Blood (NEGATIVE) Urine Nitrite (NEGATIVE) Urine Bilirubin (NEGATIVE) Urine Urobilinogen (<2.0) EU/dL Ur Leukocyte Esterase (NEGATIVE) Urine HCG, Qual (NEGATIVE) Meds: Medications Discontinued Medications Generic Name Dose Route Start Last Admin Trade Name Freq PRN Reason Stop Dose Admin Cephalexin 1,000 mg 11/25/19 23:31 11/26/19 00:21 Keflex PO 11/25/19 23:32 1,000 mg ONETIME ONE Administration Sodium Chloride 1,000 mls @ 999 mls/hr 11/25/19 22:16 11/25/19 22:27 Normal Saline IV 11/25/19 23:16 999 mls/hr .Bolus ONE Administration - Re-Assessments/Exams Free Text/Narrative Re-Assessment/Exam: 11/26/19 01:07 Patient in no acute distress. Resting comfortably. Labs unremarkable. EKG unremarkable. Chest x-ray negative. TSH not elevated. D-dimer negative. Will discharge. Will refer for cardiology. This was discussed with the patient who is comfortable with this plan. Departure - Departure Time of Disposition: 01:07 Disposition: Home, Self-Care 01 Clinical Impression: Palpitations Prescriptions: cephALEXin [Keflex] 1,000 mg PO BID #40 cap Instructions: Palpitations, [id number], Ambulatory Cardiac Monitoring Referrals: Sharyn Ribeiro PA [Primary Care Provider] - Forms: ED Department Discharge Additional Instructions: The following information is given to patients seen in the emergency department who are being discharged to home. This information is to outline your options for follow-up care. We provide all patients seen in our emergency department with a follow-up referral. The need for follow-up, as well as the timing and circumstances, are variable depending upon the specifics of your emergency department visit. If you don't have a primary care physician on staff, we will provide you with a referral. We always advise you to contact your personal physician following an emergency department visit to inform them of the circumstance of the visit and for follow-up with them and/or the need for any referrals to a consulting specialist. The emergency department will also refer you to a specialist when appropriate. This referral assures that you have the opportunity for follow-up care with a specialist. All of these measure are taken in an effort to provide you with optimal care, which includes your follow-up. Under all circumstances we always encourage you to contact your private physician who remains a resource for coordinating your care. When calling for follow-up care, please make the office aware that this follow-up is from your recent emergency room visit. If for any reason you are refused follow-up, please contact the [facility] Emergency Department at and asked to speak to the emergency department charge nurse. [facility] - Cardiology [address] [place] [id number] Follow-up with cardiology as soon as possible for outpatient cardiac monitoring. Return to the ER for any worsening. Sepsis Event Note (ED) - Evaluation Sepsis Screening Result: No Definite Risk - Focused Exam Vital Signs: Vital Signs Temp Pulse Resp BP Pulse Ox 11/25/19 22:52 98 F 65 15 118/81 98 11/25/19 21:52 98.5 F 77 16 130/80 98 - My Orders Last 24 Hours: My Active Orders 11/25/19 21:38 EKG 12 Lead [EKG Documentation Completion] [RC] STAT 11/25/19 22:16 Saline Lock Insert [OM.PC] Stat - Assessment/Plan Last 24 Hours: My Active Orders 11/25/19 21:38 EKG 12 Lead [EKG Documentation Completion] [RC] STAT 11/25/19 22:16 Saline Lock Insert [OM.PC] Stat
--- NOTE | 2019-11-26 00:03 | CR ---
INDICATION: Chest pain TECHNIQUE: Chest radiograph 2 views COMPARISON: None FINDINGS: Mediastinum: The mediastinum is normal in appearance. The heart silhouette is normal in size and morphology. Lung: Both lungs are unremarkable in appearance. No sign of pleural effusion seen. No pneumothorax is identified. Bone and Soft tissue: Unremarkable for age. Bilateral metallic nipple piercings noted. IMPRESSION: 1. No acute cardiopulmonary disease is seen. Dictated by: Thang Cullen MD @ 11/26/2019 00:02:06 (Electronically Signed)
[2019-11-26 07:36] VITALS: BP 112/78; PULSE 72
== END 2019-11-26 01:21 | disposition home or self-care (01) ==
LOC: MW.ED 21:15
DX: R00.2 Palpitations (principal); I10 Essential (primary) hypertension; F17.210 Nicotine dependence, cigarettes, uncomplicated; F41.9 Anxiety disorder, unspecified; F32.9 Major depressive disorder, single episode, unspecified; Z79.899 Other long term (current) drug therapy; Z88.6 Allergy status to analgesic agent
CPT/HCPCS: 36415; 71046; 80053; 81003; 81025; 84443; 85025; 85379; 93005; 99285; A9270; J7030; 99283

== ENCOUNTER 2020-11-20 20:35 | Emergency (ER) | payer BC ==
[2020-11-20] MEDS ORDERED: Sodium Chloride 0.9% 2.5 ML Syringe FLUSH PRN (21:25)
[2020-11-20] MEDS ORDERED: Sodium Chloride 0.9% 10 ML Syringe FLUSH PRN (21:25)
[2020-11-20] MEDS ORDERED: Promethazine 25 MG/ML SDV IM ONE (21:26)
[2020-11-20] MEDS ORDERED: Sodium Chloride 0.9% 1,000 ML IV ONE (21:27)
--- NOTE | 2020-11-20 21:28 | EDM.PDOC ---
ED HPI GENERAL MEDICAL PROBLEM - General Chief Complaint: Gastrointestinal Problem Stated Complaint: CRAMPS AND BACK PAIN DIZZY Time Seen by Provider: 11/20/20 20:52 - History of Present Illness INITIAL COMMENTS - FREE TEXT/NARRATIVE: History of present illness: [] Patient is vomiting for several days. She 11 weeks . She has had to have help each time she is because of hyperemesis. She also has right flank pain this time which is new. It is mild and dull. Patient had no dysuria or fever. The patient is lightheaded. A month ago she had anemia and was told she might respond to oral therapy and she has been noncompliant with that. The patient has no vaginal bleeding. At 6 weeks of this she had a intrauterine with heart tones identified according to her. Review of systems: As per history of present illness and below otherwise all systems reviewed and negative. Past medical history: As per history of present illness and as reviewed below otherwise noncontributory. Surgical history: As per history of present illness and as reviewed below otherwise noncontributory. Social history: No reported history of drug or alcohol abuse. Family history: As per history of present illness and as reviewed below otherwise noncontributory. Physical exam: Constitutional - well developed, well-nourished and in no acute distress HEENT - normocephalic, no evidence of trauma - external nose and mouth normal - no mass in neck and no JVD - mucosae moist EYES - full EOM, PERRL, no icterus - no evidence of inflammation, injection, or drainage Respiratory - no respiratory distress, equal bilateral expansion, lungs clear to auscultation and no abnormal lung sounds Cardiovascular - Regular Rhythm with S1 and S2 appreciated and no murmur, gallop or rub. GI - abdomen soft without distension or organomegaly - normal bowel sounds - no guard or rebound Musculoskeletal no gross deformity of long bones or joints - no tenderness, swelling or edema Neurologic - Alert and oriented times four - CN II-XII grossly intact - motor sensory and coordination symmetrically normal Psychiatric - appropriate mood and affect with normal thought content Hematologic - No petechiae or purpura - mucosa appropriate color and sclera not pale - normal nail bed color and refill Integument - no rash or evidence of trauma - normal turgor Diagnostics: [] Therapeutics: [] Impression: [] Plan: [] Definitive disposition and diagnosis as appropriate pending reevaluation and review of above. Abdomen Pain Score (Numeric/FACES): 5 - Related Data Allergies Allergy/AdvReac Type Severity Reaction Status Date / Time ketorolac [From Toradol] Allergy Rash Verified 11/20/20 21:05 Home Meds: Home Meds Pnv No.95/Ferrous Fum/Folic AC [ Multivitamin Tablet] 1 each PO DAILY 11/20/20 [History] Promethazine [Phenergan] 25 mg PO Q4H PRN #20 tab 11/20/20 [Rx] cephALEXin [Keflex] 500 mg PO BID #20 cap 11/20/20 [Rx] Past Medical History - Past Health History Medical/Surgical History: Denies Medical/Surgical History HEENT History: Reports: Impaired Vision, Other (See Below) Other HEENT History: patient wears glasses Cardiovascular History: Reports: Arrhythmia, Hypertension, Other (See Below) Other Cardiovascular History: PVC; tachycardia Respiratory History: Reports: None Gastrointestinal History: Reports: Chronic Constipation, GERD Genitourinary History: Reports: None 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: Musculoskeletal History: Reports: None Neurological History: Reports: Migraines Psychiatric History: Reports: Anxiety, Depression, Emotional Problems Endocrine/Metabolic History: Reports: None Insulin Pump Model and Buyer Broker: None Hematologic History: Reports: Anemia Immunologic History: Reports: None Oncologic (Cancer) History: Reports: None Dermatologic History: Reports: None - Infectious Disease History Infectious Disease History: Reports: None - Past Surgical History Head Surgeries/Procedures: Reports: None HEENT Surgical History: Reports: None Cardiovascular Surgical History: Reports: None GI Surgical History: Reports: None Female Surgical History: Reports: Breast Reduction Social & Family History - Family History Family Medical History: No Pertinent Family History Cardiac: Reports: Aneurysm, High Cholesterol, Hypertension GI: Reports: Cholelithiasis OBGYN: Reports: Endocrine/Metabolic: Reports: Diabetes, type II Oncologic: Reports: Other (See Below) Other Oncologic Family History: hx of cancer in family but does not remember what kind - Caffeine Use Caffeine Use: Reports: Soda Caffeine Use Comment: 1 cup - Recreational Drug Use Recreational Drug Use: No ED ROS GENERAL - Review of Systems Review Of Systems: Comprehensive ROS is negative, except as noted in HPI. ED EXAM, GENERAL - Physical Exam Exam: See Below Free Text/Narrative:: My physical exam is in the HPI Course - Vital Signs Text/Narrative:: 2232 hrs. patient tolerated p.o. Discharged in satisfactory condition. Last Recorded V/S: Last Vital Signs Temp 36.6 C 11/20/20 21:00 Pulse 106 H 11/20/20 21:00 Resp 18 11/20/20 21:00 BP 119/87 11/20/20 21:00 Pulse Ox 97 11/20/20 21:00 - Orders/Labs/Meds Orders: Active Orders 24 hr Category Date Time Status CULTURE URINE [MREF] Stat Lab 11/20/20 21:55 Ordered Sodium Chloride 0.9% [Saline Flush] Med 11/20/20 21:25 Active 10 ml FLUSH ASDIRECTED PRN Sodium Chloride 0.9% [Saline Flush] Med 11/20/20 21:25 Active 2.5 ml FLUSH ASDIRECTED PRN Saline Lock Insert [OM.PC] Stat Oth 11/20/20 21:26 Ordered Medication Orders Sodium Chloride (Sodium Chloride 0.9% 10 Ml Syringe) 10 ml FLUSH ASDIRECTED PRN PRN Reason: Keep Vein Open Last Admin: 11/20/20 21:33 Dose: 10 ml Documented by: ANN-MARIE Sodium Chloride (Sodium Chloride 0.9% 2.5 Ml Syringe) 2.5 ml FLUSH ASDIRECTED PRN PRN Reason: Keep Vein Open Last Admin: 11/20/20 21:33 Dose: 2.5 ml Documented by: ANN-MARIE Labs: Laboratory Tests 11/20/20 11/20/20 11/20/20 Range/Units 21:00 21:28 21:28 WBC 4.65 (4.0-11.0) K/uL RBC 4.49 (4.30-5.90) M/uL Hgb 13.7 (12.0-16.0) g/dL Hct 38.2 (36.0-46.0) % MCV 85.1 (80.0-98.0) fL MCH 30.5 (27.0-32.0) pg MCHC 35.9 (31.0-37.0) g/dL RDW Std Deviation 39.5 (28.0-62.0) fl RDW Coeff of Sd 13 (11.0-15.0) % Plt Count 162 (150-400) K/uL MPV 9.30 (7.40-12.00) fL Neut % (Auto) 80.7 H (48.0-80.0) % Lymph % (Auto) 13.3 L (16.0-40.0) % [place] % (Auto) 6.0 (0.0-15.0) % Eos % (Auto) 0.0 (0.0-7.0) % Baso % (Auto) 0.0 (0.0-1.5) % Neut # (Auto) 3.8 (1.4-5.7) K/uL Lymph # (Auto) 0.6 (0.6-2.4) K/uL [place] # (Auto) 0.3 (0.0-0.8) K/uL Eos # (Auto) 0.0 (0.0-0.7) K/uL Baso # (Auto) 0.0 (0.0-0.1) K/uL Nucleated RBC % 0.0 /100WBC Nucleated RBCs # 0 K/uL Sodium 139 (136-145) mmol/L Potassium 3.6 (3.5-5.1) mmol/L Chloride 103 (98-107) mmol/L Carbon Dioxide 24.0 (21.0-32.0) mmol/L BUN 13 (7.0-18.0) mg/dL Creatinine 0.6 (0.6-1.0) mg/dL Est Cr Clr Drug Dosing 103.85 mL/min Estimated GFR (MDRD) > 60.0 ml/min Glucose 84 (74-106) mg/dL Calcium 8.5 (8.5-10.1) mg/dL Total Bilirubin 0.7 (0.2-1.0) mg/dL AST 17 (15-37) IU/L ALT 18 (14-63) IU/L Alkaline Phosphatase 42 L (46-116) U/L Total Protein 7.1 (6.4-8.2) g/dL Albumin 3.7 (3.4-5.0) g/dL Globulin 3.4 (2.6-4.0) g/dL Albumin/Globulin Ratio 1.1 (0.9-1.6) Lipase 84 (73-393) U/L Urine Color YELLOW Urine Appearance SLT CLOUDY Urine pH 5.5 (5.0-8.0) Ur Specific [place] >= 1.030 (1.001-1.035) Urine Protein NEGATIVE (NEGATIVE) mg/dL Urine Glucose (UA) NEGATIVE (NEGATIVE) mg/dL Urine Ketones 40 H (NEGATIVE) mg/dL Urine Occult Blood NEGATIVE (NEGATIVE) Urine Nitrite NEGATIVE (NEGATIVE) Urine Bilirubin SMALL H (NEGATIVE) Urine Ictotest NEGATIVE Urine Urobilinogen 0.2 (<2.0) EU/dL Ur Leukocyte Esterase TRACE H (NEGATIVE) Urine RBC 0-3 (0-2/HPF) Urine WBC 4-8 (0-5/HPF) Ur Epithelial Cells MODERATE (NONE-FEW) Urine Bacteria 3+ H (NEGATIVE) Urine Mucus HEAVY (NONE-MOD) Meds: Medications Generic Name Dose Route Start Last Admin Trade Name Freq PRN Reason Stop Dose Admin Sodium Chloride 10 ml 11/20/20 21:25 11/20/20 21:33 Sodium Chloride 0.9% 10 Ml Syringe FLUSH 10 ml ASDIRECTED PRN Administration Keep Vein Open Sodium Chloride 2.5 ml 11/20/20 21:25 11/20/20 21:33 Sodium Chloride 0.9% 2.5 Ml Syringe FLUSH 2.5 ml ASDIRECTED PRN Administration Keep Vein Open Discontinued Medications Generic Name Dose Route Start Last Admin Trade Name Freq PRN Reason Stop Dose Admin Sodium Chloride 1,000 mls @ 1,000 mls/hr 11/20/20 21:27 11/20/20 21:33 Normal Saline IV 11/20/20 22:26 1,000 mls/hr .Bolus ONE Administration Promethazine HCl 25 mg 11/20/20 21:26 11/20/20 21:48 Promethazine 25 Mg/Ml Sdv IM 11/20/20 21:27 25 mg ONETIME ONE Administration Departure - Departure Time of Disposition: 22:32 Disposition: Home, Self-Care 01 Condition: Good Clinical Impression: UTI (urinary tract infection), Hyperemesis gravidarum, UTI, Urinary tract infectious disease - Discharge Information Prescriptions: cephALEXin [Keflex] 500 mg PO BID #20 cap Promethazine [Phenergan] 25 mg PO Q4H PRN #20 tab PRN Reason: Nausea/Vomiting Instructions: Urinary Tract Infection, Adult, and Urinary Tract Infection, Hyperemesis Gravidarum Referrals: Nadiya George NP [Primary Care Provider] - Forms: ED Department Discharge Additional Instructions: [facility] [address] [place] [address] [facility] [address] [place] [address] The following information is given to patients seen in the emergency department who are being discharged to home. This information is to outline your options for follow-up care. We provide all patients seen in our emergency department with a follow-up referral. The need for follow-up, as well as the timing and circumstances, are variable depending upon the specifics of your emergency department visit. If you don't have a primary care physician on staff, we will provide you with a referral. We always advise you to contact your personal physician following an emergency department visit to inform them of the circumstance of the visit and for follow-up with them and/or the need for any referrals to a consulting specialist. The emergency department will also refer you to a specialist when appropriate. This referral assures that you have the opportunity for follow-up care with a specialist. All of these measure are taken in an effort to provide you with optimal care, which includes your follow-up. Under all circumstances we always encourage you to contact your private phys ician who remains a resource for coordinating your care. When calling for follow-up care, please make the office aware that this follow-up is from your recent emergency room visit. If for any reason you are refused follow-up, please contact the [facility] Emergency Department at and asked to speak to the emergency department charge nurse. Sepsis Event Note (ED) - Evaluation Sepsis Screening Result: No Definite Risk - Focused Exam Vital Signs: Vital Signs Temp Pulse Resp BP Pulse Ox 11/20/20 21:00 36.6 C 106 H 18 119/87 97 - My Orders Last 24 Hours: My Active Orders 11/20/20 21:25 Sodium Chloride 0.9% [Saline Flush] 10 ml FLUSH ASDIRECTED PRN Sodium Chloride 0.9% [Saline Flush] 2.5 ml FLUSH ASDIRECTED PRN 11/20/20 21:26 Saline Lock Insert [OM.PC] Stat 11/20/20 21:55 CULTURE URINE [MREF] Stat - Assessment/Plan Last 24 Hours: My Active Orders 11/20/20 21:25 Sodium Chloride 0.9% [Saline Flush] 10 ml FLUSH ASDIRECTED PRN Sodium Chloride 0.9% [Saline Flush] 2.5 ml FLUSH ASDIRECTED PRN 11/20/20 21:26 Saline Lock Insert [OM.PC] Stat 11/20/20 21:55 CULTURE URINE [MREF] Stat
[2020-11-20 21:58] LABS: BLOOD UREA NITROGEN,BUN 13 mg/dL (7.0-18.0); CHLORIDE,CL 103 mmol/L (98-107); GLUCOSE RANDOM 84 mg/dL (74-106); LIPASE 84 U/L (73-393); POTASSIUM,K 3.6 mmol/L (3.5-5.1); SODIUM,NA 139 mmol/L (136-145)
[2020-11-20 22:49] VITALS: BP 120/72; PULSE 87
== END 2020-11-20 22:52 | disposition home or self-care (01) ==
LOC: MW.ED 20:35
DX: O23.41 Unspecified infection of urinary tract in pregnancy, first trimester (principal); O21.0 Mild hyperemesis gravidarum; O13.1 Gestational [pregnancy-induced] hypertension without significant proteinuria, first trimester; Z88.6 Allergy status to analgesic agent; Z3A.11 11 weeks gestation of pregnancy
CPT/HCPCS: 36415; 80053; 81001; 83690; 85025; 87086; 96372; 99284; J2550; J7030

== ENCOUNTER 2021-12-07 21:36 | Emergency (ER) | payer BC | END 2021-12-08 05:24 | disposition left against medical advice (07) | LOC: MW.ED 21:36 | DX: Z53.21 Procedure and treatment not carried out due to patient leaving prior to being seen by health care provider (principal) ==

== ENCOUNTER 2022-10-23 03:58 | Emergency (ER) | payer BC ==
[2022-10-23] MEDS ORDERED: Sodium Chloride 0.9% 2.5 ML Syringe FLUSH PRN (04:12)
[2022-10-23] MEDS ORDERED: Sodium Chloride 0.9% 10 ML Syringe FLUSH PRN (04:12)
[2022-10-23] MEDS ORDERED: Sodium Chloride 0.9% 1,000 ML IV ONE (04:12)
[2022-10-23] MEDS ORDERED: Loperamide 2 MG Cap PO STA (04:17)
[2022-10-23] MEDS ORDERED: Ondansetron 4 MG/2 ML SDV IVPUSH ONE (04:17)
[2022-10-23 04:29] LABS: BASOPHILS PERCENT AUTO 0.3 % (0.0-1.5); EOSINOPHILS PERCENT AUTO 0.3 % (0.0-7.0); HEMATOCRIT 42.7 % (36.0-46.0); HEMOGLOBIN 15.3 g/dL (12.0-16.0); LYMPHOCYTES ABSOLUTE AUTO 1.4 K/uL (0.6-2.4); LYMPHOCYTES PERCENT AUTO 40.2 % (16.0-40.0); MEAN CORPUSCULAR HEMOGLOBIN 28.4 pg (27.0-32.0); MEAN CORPUSCULAR HGB CONC 35.8 g/dL (31.0-37.0); MEAN CORPUSCULAR VOLUME 79.4 fL (80.0-98.0); MONOCYTES ABSOLUTE AUTO 0.5 K/uL (0.0-0.8); MONOCYTES PERCENT AUTO 15.7 % (0.0-15.0); NEUTROPHILS ABSOLUTE AUTO 1.5 K/uL (1.4-5.7); NEUTROPHILS PERCENT AUTO 43.5 % (48.0-80.0); PLATELET COUNT,PLT 154 K/uL (150-400); RED BLOOD CELL COUNT 5.38 M/uL (4.30-5.90); WHITE BLOOD CELL COUNT,WBC 3.43 K/uL (4.0-11.0)
[2022-10-23 05:08] LABS: A/G RATIO 1.2 (0.9-1.6); ALBUMIN 4.2 g/dL (3.4-5.0); BILIRUBIN TOTAL 0.6 mg/dL (0.2-1.0); CALCIUM 9.7 mg/dL (8.5-10.1); CARBON DIOXIDE,CO2 26.2 mmol/L (21.0-32.0); CREATININE 0.9 mg/dL (0.6-1.0); EST CRCL DRUG DOSING (CG) 93.6 mL/min; POTASSIUM,K 3.2 mmol/L (3.5-5.1); PROTEIN TOTAL,TP 7.7 g/dL (6.4-8.2)
[2022-10-23] MEDS ORDERED: Potassium Chloride 20 MEQ Tab.ER PO ONE (05:18)
[2022-10-23 06:01] VITALS: BP 105/71; PULSE 66
[2022-10-23 06:02] LABS: APPEARANCE,URINE CLEAR; BILIRUBIN,URINE NEGATIVE (NEGATIVE); COLOR,URINE DARK YELLOW; GLUCOSE,URINE NEGATIVE (NEGATIVE); KETONES,URINE 15 mg/dL (NEGATIVE); LEUKOCYTE ESTERASE,URINE NEGATIVE (NEGATIVE); NITRITE,URINE NEGATIVE (NEGATIVE); OCCULT BLOOD,URINE TRACE-INTACT (NEGATIVE); PROTEIN,URINE NEGATIVE (NEGATIVE); UROBILINOGEN,URINE 0.2 EU/dL (<2.0)
[2022-10-23 06:13] LABS: BACTERIA,URINE FEW (NEGATIVE); EPITHELIAL CELLS,URINE FEW (NONE-FEW); MUCUS,URINE FEW (NONE-MOD); RBC,URINE 0-1 (0-2/HPF); WBC,URINE 0-2 (0-5/HPF)
== END 2022-10-23 06:45 | disposition home or self-care (01) ==
LOC: MW.ED 03:58
DX: K52.9 Noninfective gastroenteritis and colitis, unspecified (principal); I10 Essential (primary) hypertension; Z88.8 Allergy status to other drugs, medicaments and biological substances
CPT/HCPCS: 36415; 80053; 81001; 83690; 84703; 85025; 96361; 96374; 99284; A9270; J2405; J3490; J7030

== ENCOUNTER 2023-10-29 23:35 | Emergency (ER) | payer BC ==
[2023-10-30] MEDS: Acetaminophen 325 MG Tab PO ONE (00:38)
[2023-10-30] MEDS: Ibuprofen 600 MG Tab PO ONE (00:39)
[2023-10-30 02:12] VITALS: BP 114/72; PULSE 82
== END 2023-10-30 02:11 | disposition home or self-care (01) ==
LOC: MW.ED 23:35
DX: T23.142A Burn of first degree of multiple left fingers (nail), including thumb, initial encounter (principal); I10 Essential (primary) hypertension; Z79.899 Other long term (current) drug therapy; Z88.5 Allergy status to narcotic agent; Z75.8 Other problems related to medical facilities and other health care; X10.2XXA Contact with fats and cooking oils, initial encounter
CPT/HCPCS: 99283; A9270

== ENCOUNTER 2024-02-16 11:55 | Emergency (ER) | payer BC ==
[2024-02-16] MEDS ORDERED: Sodium Chloride 0.9% 2.5 ML Syringe FLUSH PRN (12:32)
[2024-02-16] MEDS ORDERED: Sodium Chloride 0.9% 10 ML Syringe FLUSH PRN (12:32)
[2024-02-16 12:46] LABS: BASOPHILS ABSOLUTE AUTO 0.01 K/uL (0.00-0.20); BASOPHILS PERCENT AUTO 0.2 % (0.0-1.0); EOSINOPHILS ABSOLUTE AUTO 0.07 K/uL (0.00-0.45); EOSINOPHILS PERCENT AUTO 1.6 % (0.0-6.0); HEMATOCRIT 36.6 % (37.0-47.0); HEMOGLOBIN 12.5 g/dL (12.0-16.0); IMMATURE GRAN ABSOLUTE AUTO 0.01 K/uL (0.00-0.05); IMMATURE GRAN PERCENT AUTO 0.2 % (0.0-0.4); LYMPHOCYTES ABSOLUTE AUTO 1.51 K/uL (1.00-4.80); LYMPHOCYTES PERCENT AUTO 34.5 % (24.0-44.0); MEAN CORPUSCULAR HEMOGLOBIN 27.7 pg (28.0-32.0); MEAN CORPUSCULAR HGB CONC 34.2 g/dL (32.0-36.0); MEAN CORPUSCULAR VOLUME 81.2 fL (83.0-99.0); MONOCYTES ABSOLUTE AUTO 0.34 K/uL (0.00-0.80); MONOCYTES PERCENT AUTO 7.8 % (0.0-8.0); NEUTROPHILS ABSOLUTE AUTO 2.44 K/uL (1.80-7.70); NEUTROPHILS PERCENT AUTO 55.7 % (41.0-71.0); PLATELET COUNT,PLT 229 K/uL (150-400); RED BLOOD CELL COUNT 4.51 M/uL (4.10-5.30); WHITE BLOOD CELL COUNT,WBC 4.38 K/uL (3.9-11.3)
[2024-02-16 13:21] LABS: A/G RATIO 1.2 (0.9-1.6); ALANINE AMINOTRANSFERASE,ALT 26 IU/L (14-63); ALBUMIN 4.1 g/dL (3.4-5.0); ALKALINE PHOSPHATASE 59 U/L (46-116); ASPARTATE AMNIOTRANSFERASE,AST 19 IU/L (15-37); BILIRUBIN TOTAL 0.6 mg/dL (0.2-1.0); BLOOD UREA NITROGEN,BUN 10 mg/dL (7.0-18.0); CALCIUM 9.4 mg/dL (8.5-10.1); CARBON DIOXIDE,CO2 29.9 mmol/L (21.0-32.0); CHLORIDE,CL 105 mmol/L (98-107); CREATININE 0.9 mg/dL (0.6-1.0); EST CRCL DRUG DOSING (CG) 67.44 mL/min; GLUCOSE RANDOM 141 mg/dL (74-106); LIPASE 30 U/L (16-77); PRO B-TYPE NATRIUR PEPT,BNPPRO 11 pg/mL (0-125); PROTEIN TOTAL,TP 7.4 g/dL (6.4-8.2); SODIUM,NA 138 mmol/L (136-145); TSH ULTRASENSITIVE 0.97 uIU/mL (0.36-3.74)
[2024-02-16 13:23] LABS: ESTIMATED GFR 90 mL/min (>60)
[2024-02-16 13:58] VITALS: BP 119/60; PULSE 79
== END 2024-02-16 15:31 | disposition home or self-care (01) ==
LOC: MW.ED 11:55
DX: R07.89 Other chest pain (principal); R55 Syncope and collapse; I10 Essential (primary) hypertension; F17.210 Nicotine dependence, cigarettes, uncomplicated; Z79.899 Other long term (current) drug therapy; Z88.8 Allergy status to other drugs, medicaments and biological substances; Z75.8 Other problems related to medical facilities and other health care
CPT/HCPCS: 36415; 71045; 71045-26; 80053; 81025; 82947; 83690; 83880; 84443; 84484; 85025; 93005; 93010; 93246; 99283; 99285

== ENCOUNTER 2024-02-29 17:03 | Emergency (ER) | payer BC ==
[2024-02-29] MEDS: Sodium Chloride 0.9% 1,000 ML IV STA (17:31)
[2024-02-29 17:45] LABS: BASOPHILS ABSOLUTE AUTO 0.02 K/uL (0.00-0.20); BASOPHILS PERCENT AUTO 0.4 % (0.0-1.0); EOSINOPHILS ABSOLUTE AUTO 0.08 K/uL (0.00-0.45); EOSINOPHILS PERCENT AUTO 1.4 % (0.0-6.0); HEMATOCRIT 37.8 % (37.0-47.0); HEMOGLOBIN 12.6 g/dL (12.0-16.0); LYMPHOCYTES ABSOLUTE AUTO 2.09 K/uL (1.00-4.80); LYMPHOCYTES PERCENT AUTO 37.1 % (24.0-44.0); MEAN CORPUSCULAR HEMOGLOBIN 27.3 pg (28.0-32.0); MEAN CORPUSCULAR HGB CONC 33.3 g/dL (32.0-36.0); MEAN PLATELET VOLUME 9.4 fL (9.4-12.3); MONOCYTES ABSOLUTE AUTO 0.37 K/uL (0.00-0.80); MONOCYTES PERCENT AUTO 6.6 % (0.0-8.0); NEUTROPHILS ABSOLUTE AUTO 3.07 K/uL (1.80-7.70); NEUTROPHILS PERCENT AUTO 54.5 % (41.0-71.0); PLATELET COUNT,PLT 276 K/uL (150-400); RED BLOOD CELL COUNT 4.61 M/uL (4.10-5.30); WHITE BLOOD CELL COUNT,WBC 5.63 K/uL (3.9-11.3)
[2024-02-29 17:47] LABS: APPEARANCE,URINE CLEAR; BILIRUBIN,URINE NEGATIVE (NEGATIVE); COLOR,URINE YELLOW; GLUCOSE,URINE NEGATIVE (NEGATIVE); KETONES,URINE NEGATIVE (NEGATIVE); LEUKOCYTE ESTERASE,URINE NEGATIVE (NEGATIVE); NITRITE,URINE NEGATIVE (NEGATIVE); OCCULT BLOOD,URINE NEGATIVE (NEGATIVE); PROTEIN,URINE NEGATIVE (NEGATIVE); UROBILINOGEN,URINE 0.2 EU/dL (<2.0)
[2024-02-29 18:10] LABS: A/G RATIO 1.3 (0.9-1.6); ALBUMIN 4.3 g/dL (3.4-5.0); BILIRUBIN TOTAL 0.4 mg/dL (0.2-1.0); CALCIUM 9.4 mg/dL (8.5-10.1); CARBON DIOXIDE,CO2 26.5 mmol/L (21.0-32.0); CREATININE 0.8 mg/dL (0.6-1.0); EST CRCL DRUG DOSING (CG) 75.87 mL/min; POTASSIUM,K 3.7 mmol/L (3.5-5.1); PROTEIN TOTAL,TP 7.6 g/dL (6.4-8.2)
[2024-02-29 20:01] VITALS: BP 129/69; PULSE 72
== END 2024-02-29 20:01 | disposition home or self-care (01) ==
LOC: MW.ED 17:03
DX: O99.891 Other specified diseases and conditions complicating pregnancy (principal); R10.32 Left lower quadrant pain; O99.331 Smoking (tobacco) complicating pregnancy, first trimester; F17.210 Nicotine dependence, cigarettes, uncomplicated; O99.611 Diseases of the digestive system complicating pregnancy, first trimester; K21.9 Gastro-esophageal reflux disease without esophagitis; O10.011 Pre-existing essential hypertension complicating pregnancy, first trimester; Z79.899 Other long term (current) drug therapy; Z88.6 Allergy status to analgesic agent; Z75.8 Other problems related to medical facilities and other health care; Z3A.01 Less than 8 weeks gestation of pregnancy
CPT/HCPCS: 36415; 76817; 80053; 81003; 83690; 84702; 85025; 96360; 99284; J7030; 99283

== ENCOUNTER 2024-10-01 22:56 | Emergency (ER) | payer BC ==
[2024-10-01] MEDS: hydrALAZINE 20 MG/ML SDV IVPUSH ONE (23:31)
[2024-10-01 23:33] LABS: BASOPHILS ABSOLUTE AUTO 0.03 K/uL (0.00-0.20); BASOPHILS PERCENT AUTO 0.5 % (0.0-1.0); EOSINOPHILS PERCENT AUTO 1.6 % (0.0-6.0); HEMATOCRIT 36.5 % (37.0-47.0); HEMOGLOBIN 12.7 g/dL (12.0-16.0); IMMATURE GRAN ABSOLUTE AUTO 0.01 K/uL (0.00-0.05); IMMATURE GRAN PERCENT AUTO 0.2 % (0.0-0.4); LYMPHOCYTES ABSOLUTE AUTO 2.49 K/uL (1.00-4.80); LYMPHOCYTES PERCENT AUTO 38.9 % (24.0-44.0); MEAN CORPUSCULAR HGB CONC 34.8 g/dL (32.0-36.0); MEAN CORPUSCULAR VOLUME 80.6 fL (83.0-99.0); MONOCYTES ABSOLUTE AUTO 0.38 K/uL (0.00-0.80); MONOCYTES PERCENT AUTO 5.9 % (0.0-8.0); NEUTROPHILS ABSOLUTE AUTO 3.39 K/uL (1.80-7.70); NEUTROPHILS PERCENT AUTO 52.9 % (41.0-71.0); PLATELET COUNT,PLT 269 K/uL (150-400); RED BLOOD CELL COUNT 4.53 M/uL (4.10-5.30)
[2024-10-01 23:55] LABS: A/G RATIO 1.3 (0.9-1.6); ALANINE AMINOTRANSFERASE,ALT 25 IU/L (14-63); ALBUMIN 4.2 g/dL (3.4-5.0); ALKALINE PHOSPHATASE 75 U/L (46-116); ASPARTATE AMNIOTRANSFERASE,AST 18 IU/L (15-37); BILIRUBIN TOTAL 0.3 mg/dL (0.2-1.0); BLOOD UREA NITROGEN,BUN 10 mg/dL (7.0-18.0); CALCIUM 8.8 mg/dL (8.5-10.1); CHLORIDE,CL 100 mmol/L (98-107); EST CRCL DRUG DOSING (CG) 60.16 mL/min; GLUCOSE RANDOM 99 mg/dL (74-106); LIPASE 41 U/L (16-77); MAGNESIUM 1.6 mg/dL (1.8-2.4); POTASSIUM,K 3.7 mmol/L (3.5-5.1); PRO B-TYPE NATRIUR PEPT,BNPPRO 31 pg/mL (0-125); PROTEIN TOTAL,TP 7.4 g/dL (6.4-8.2); SODIUM,NA 139 mmol/L (136-145)
[2024-10-01 23:56] LABS: ESTIMATED GFR 79 mL/min (>60)
[2024-10-02] MEDS: Iopamidol 755 MG/ML 500 ML Multipack Bottle IVPUSH ONE (00:20)
[2024-10-02] MEDS ORDERED: Magnesium Sulfate 2 GM/50 mL 2 GM in Premix Bag 1 BAG IV ONE (00:25)
[2024-10-02] MEDS: Ketorolac 30 MG/ML SDV IVPUSH ONE (00:56)
[2024-10-02] MEDS: Magnesium Oxide 400 MG Tab PO ONE (00:56)
[2024-10-02] MEDS: Dexamethasone 4 MG/ML SDV IVPUSH ONE (00:56)
[2024-10-02 02:13] VITALS: BP 132/97; PULSE 98
== END 2024-10-02 02:12 | disposition home or self-care (01) ==
LOC: MW.ED 22:56
DX: R07.9 Chest pain, unspecified (principal); L95.9 Vasculitis limited to the skin, unspecified; R06.02 Shortness of breath; I10 Essential (primary) hypertension; R53.83 Other fatigue; G89.29 Other chronic pain; E83.42 Hypomagnesemia; K21.9 Gastro-esophageal reflux disease without esophagitis; Z88.6 Allergy status to analgesic agent; Z79.899 Other long term (current) drug therapy
CPT/HCPCS: 36415; 71275; 80053; 83690; 83735; 83880; 84484; 84703; 85025; 93005; 96374; 96375; 99285; A9270; J0360; J1100; Q9967; 93010; 99284; J1885

== ENCOUNTER 2024-11-13 20:43 | Emergency (ER) | payer BC ==
[2024-11-13 21:55] LABS: BASOPHILS ABSOLUTE AUTO 0.03 K/uL (0.00-0.20); BASOPHILS PERCENT AUTO 0.6 % (0.0-1.0); EOSINOPHILS ABSOLUTE AUTO 0.09 K/uL (0.00-0.45); EOSINOPHILS PERCENT AUTO 1.7 % (0.0-6.0); HEMATOCRIT 40.2 % (37.0-47.0); HEMOGLOBIN 13.7 g/dL (12.0-16.0); IMMATURE GRAN ABSOLUTE AUTO 0.01 K/uL (0.00-0.05); IMMATURE GRAN PERCENT AUTO 0.2 % (0.0-0.4); LYMPHOCYTES ABSOLUTE AUTO 2.06 K/uL (1.00-4.80); MEAN CORPUSCULAR HEMOGLOBIN 27.3 pg (28.0-32.0); MEAN CORPUSCULAR HGB CONC 34.1 g/dL (32.0-36.0); MEAN CORPUSCULAR VOLUME 80.2 fL (83.0-99.0); MONOCYTES ABSOLUTE AUTO 0.32 K/uL (0.00-0.80); MONOCYTES PERCENT AUTO 5.9 % (0.0-8.0); NEUTROPHILS ABSOLUTE AUTO 2.91 K/uL (1.80-7.70); NEUTROPHILS PERCENT AUTO 53.6 % (41.0-71.0); PLATELET COUNT,PLT 283 K/uL (150-400); RED BLOOD CELL COUNT 5.01 M/uL (4.10-5.30); WHITE BLOOD CELL COUNT,WBC 5.42 K/uL (3.9-11.3)
[2024-11-13] MEDS: Prochlorperazine 10 MG/2 ML SDV IVPUSH ONE (22:29)
[2024-11-13] MEDS: Sodium Chloride 0.9% 1,000 ML IV ONE (22:29)
[2024-11-13] MEDS: diphenhydrAMINE 50 MG/ML SDV IVPUSH ONE (22:29)
[2024-11-13] MEDS: Ondansetron 4 MG/2 ML SDV IVPUSH ONE (22:29)
[2024-11-13] MEDS: Dexamethasone 4 MG/ML SDV IVPUSH ONE (22:30)
[2024-11-13 22:32] LABS: A/G RATIO 1.2 (0.9-1.6); ALANINE AMINOTRANSFERASE,ALT 28 IU/L (14-63); ALBUMIN 4.5 g/dL (3.4-5.0); ALKALINE PHOSPHATASE 78 U/L (46-116); ASPARTATE AMNIOTRANSFERASE,AST 21 IU/L (15-37); BILIRUBIN TOTAL 0.4 mg/dL (0.2-1.0); BLOOD UREA NITROGEN,BUN 8 mg/dL (7.0-18.0); CALCIUM 9.8 mg/dL (8.5-10.1); CARBON DIOXIDE,CO2 30.3 mmol/L (21.0-32.0); CHLORIDE,CL 100 mmol/L (98-107); CREATININE 0.8 mg/dL (0.6-1.0); GLUCOSE RANDOM 100 mg/dL (74-106); LIPASE 32 U/L (16-77); POTASSIUM,K 3.6 mmol/L (3.5-5.1); PRO B-TYPE NATRIUR PEPT,BNPPRO 15 pg/mL (0-125); PROTEIN TOTAL,TP 8.1 g/dL (6.4-8.2); SODIUM,NA 138 mmol/L (136-145)
[2024-11-13 22:34] LABS: ESTIMATED GFR 103 mL/min (>60)
[2024-11-13] MEDS: Iopamidol 755 Mg/ML 100 ML Bottle IVPUSH ONE (23:00)
[2024-11-13 23:45] VITALS: BP 105/71; PULSE 62
== END 2024-11-14 00:23 | disposition home or self-care (01) ==
LOC: MW.ED 20:43
DX: R07.9 Chest pain, unspecified (principal); I10 Essential (primary) hypertension; G43.909 Migraine, unspecified, not intractable, without status migrainosus; K21.9 Gastro-esophageal reflux disease without esophagitis; F17.290 Nicotine dependence, other tobacco product, uncomplicated; Z88.5 Allergy status to narcotic agent; Z79.899 Other long term (current) drug therapy
CPT/HCPCS: 36415; 71045; 71275; 80053; 83690; 83880; 84484; 84703; 85025; 93005; 96374; 96375; 99285; J0780; J1200; J2405; J7030; Q9967; 93010; 99284

== ENCOUNTER 2024-12-20 09:11 | Day surgery (SDC) | payer BC ==
[~2024-12-20 09:11] MED LIST: Sodium Chloride 0.9% 10 ML Syringe FLUSH PRN; Sodium Chloride 0.9% 2.5 ML Syringe FLUSH PRN
[2024-12-20] MEDS: Lactated Ringers 1,000 ML IV SCH (10:27)
[2024-12-20] MEDS ORDERED: propofoL 500 MG/50 ML 50 ML ONE (10:41)
[2024-12-20 12:46] VITALS: BP 128/81; PULSE 71
== END 2024-12-20 12:15 | disposition home or self-care (01) ==
LOC: MW.SDS 09:11
PROVIDERS: ATTEND Surgery
DX: R19.4 Change in bowel habit (principal); R10.9 Unspecified abdominal pain; I10 Essential (primary) hypertension; K21.9 Gastro-esophageal reflux disease without esophagitis; F17.200 Nicotine dependence, unspecified, uncomplicated; Z91.09 Other allergy status, other than to drugs and biological substances; Z88.8 Allergy status to other drugs, medicaments and biological substances; Z79.899 Other long term (current) drug therapy
CPT/HCPCS: 43239; 45385; 81025; J2003; J2704; J7120; 00813